=== PATIENT | female | born 1935 | race African-American/Black ===

== ENCOUNTER 2016-11-23 13:01 | Outpatient (CLI) | payer MEDICARE, MEDICAID ==
--- NOTE | 2016-11-23 15:45 | CT ---
CT CHEST WITH IV CONTRAST: History: Hemoptysis. Comparison: 06-03-16 FINDINGS: Lungs are slightly hyperinflated with scattered areas of parenchymal scarring and mild atelectasis. No focal parenchymal mass, pleural fluid, or pneumothorax are apparent. No enlarged lymph nodes are apparent within the mediastinum. Reactive appearing bilateral axillary lymph nodes are similar in ap pearance to the previous exam. Heterogeneous low density lesions within the spleen likely represent hemangiomas. There is calcification in the arterial structures. Airways are patent. IMPRESSION: 1. No abnormalities to explain hemoptysis are apparent. 2. Atherosclerosis. 3. COPD. POS: [facility]
== END 2016-11-23 13:02 | disposition home or self-care (01) ==
LOC: SCSCT 13:01
PROVIDERS: ATTEND Internal Medicine
DX: R04.2 Hemoptysis (principal); J44.9 Chronic obstructive pulmonary disease, unspecified; I70.90 Unspecified atherosclerosis
CPT/HCPCS: 71260

== ENCOUNTER 2018-04-29 12:51 | Observation (INO) | payer MEDICARE, MEDICAID ==
[2018-04-29] MEDS ORDERED: Lidocaine Viscous Sol 2% 15 ml UD Cup ONE (15:13)
[2018-04-29] MEDS ORDERED: Mag-Al 1200 mg/1200 mg/30 ML UDCUP ONE (15:13)
--- NOTE | 2018-04-29 16:47 | PDOC.FPRHP ---
Addendum entered and electronically signed by Sapna Rob MD 04/29/18 18:48 : PMH: HTN, HLD, h/o CO (1990), GERD, chronic back pain, dementia PSH: tubal ligation & B/L arm surgery (cyst/boil removal) FH: non-contributory Social: Former smoker but quit >10 years ago. No EtOH or drug use. Lives at home alone. Original Note: - History of Present Illness Chief Complaint: weakness and headache History of Present Illness: The patient is an 82YOF w/ a PMH significant for HTN, HLD, GERD, and dementia who was transferred from an outside ED after presenting there with a CC of weakness and associated headache and transient lightheadedness that, per the family, has been ongoing for the last week. The patient reported not feeling like herself for the last 2 weeks but per the family she has become progressively more weak over the past week. She has also had decreased PO intake and has reportedly been more confused than baseline at times. The patient denies any fever/chills, dysuria, frequency, or hematuria. She does endorse some nausea but denies any vomiting. Also, of note, the patient reportedly also endorsed some right-sided facial paresthesias that she states are relieved with drinking water. She denied any associated dysarthria or focal weakness. ED Course: 500mL of NS - Allergies/Adverse Reactions Allergies Allergy/AdvReac Type Severity Reaction Status Date / Time aspirin Allergy Verified 04/29/18 22:23 lidocaine Allergy Verified 04/29/18 22:23 - Home Medications Medication Instructions Recorded Confirmed Type Amlodipine Besylate [amLODIPine 10 mg PO HS 01/24/16 04/29/18 History Besylate] Lovastatin 40 mg PO QAM-WM 01/24/16 04/29/18 History Acetaminophen [Tylenol Regular 650 mg PO Q4H PRN tab 04/30/18 Rx Strength] Lisinopril [Zestril] 20 mg PO DAILY #30 tab 04/30/18 04/29/18 Rx Nitrofurantoin Monohyd/M-Cryst 100 mg PO BID #7 cap 04/30/18 Rx [Macrobid] predniSONE 10 mg PO QAM-WM tab 04/30/18 Rx - History PMHx: PSHx: FHx: Social: - Review of Systems General: reports: weight/appetite/sleep changes. denies: fever/chills, fatigue Eyes: denies: eye pain, vision changes ENT: denies: nasal congestion, rhinorrhea Respiratory: reports: cough. denies: shortness of breath Cardiovascular: denies: chest pain Gastrointestinal: reports: nausea, abdominal pain. denies: vomiting Genitourinary: reports: other (no hematuria or frequency). denies: dysuria Skin: denies: rashes, lesions Musculoskeletal: denies: pain, tenderness Neurological: reports: numbness, other (lightheadedness). denies: syncope, weakness Psychological: denies: anxiety, depression - Vital signs BP: 134/59 HR: 79 RR: 18 Tmax: 98F Pox: 100% on RA Wt: 60 kg - Physical Exam Constitutional: NAD, awake, alert and oriented, well developed HEENT: normocephalic and atraumatic, conjunctiva clear, grossly normal vision, grossly normal hearing, MMM (dry, cracked lips noted but oral mucosa moist on exam), oropharynx clear, good dention Neck: supple, FROM Heart: RRR, normal S1/S2, no murmurs/rubs/gallops, no edema Lungs: CTAB, no respiratory distress, good air movement, no rales/rhonchi, no wheezing, no retractions Abdomen: soft, bowel sounds present, other (suprapubic tenderness noted) Musculoskeletal: normal structure, ROM grossly normal Neurological: no focal deficit, CN II-XII intact, other (reported decreased sensation to light touch in V3 on the right) Skin: no rash/lesions, good turgor, no jaundice Heme/Lymphatic: no unusual bruising or bleeding, no purpura, no petechia Psychiatric: normal mood and affect, good judgment and insight, other (slightly impaired recent and remote memory) FMR H&P: Results - Labs Result Diagrams: 04/30/18 04:51 04/30/18 04:51 Lab results: Laboratory Tests 04/29/18 04/29/18 09:25 09:55 WBC 9.7 Hgb 11.2 L MCV 86.3 Urine Color Yellow Urine Clarity SL HAZY Urine Blood Trace H Ur Leukocyte Esterase Large H Urine WBC 4-6 H Urine Bacteria 1+ H - Radiology Interpretation CT scan - head Status: report reviewed by me (chronic small vessel ischemic changes & cerebral volume loss) Chest x-ray Status: report reviewed by me (no acute cardiopulmonary process) FMR H&P: A/P - Problem List (1) UTI (urinary tract infection) Current Visit: Yes Status: Acute Qualifiers: Urinary tract infection type: acute cystitis Hematuria presence: with hematuria Qualified Code(s): N30.01 - Acute cystitis with hematuria (2) HTN (hypertension) Current Visit: Yes Status: Chronic Code(s): I10 - ESSENTIAL (PRIMARY) HYPERTENSION (3) HLD (hyperlipidemia) Current Visit: Yes Status: Chronic Code(s): E78.5 - HYPERLIPIDEMIA, UNSPECIFIED (4) History of CO (myocardial infarction) Current Visit: Yes Status: Chronic Code(s): I25.2 - OLD MYOCARDIAL INFARCTION (5) GERD (gastroesophageal reflux disease) Current Visit: Yes Status: Chronic Code(s): K21.9 - GASTRO-ESOPHAGEAL REFLUX DISEASE WITHOUT ESOPHAGITIS (6) Dementia Current Visit: Yes Status: Chronic Code(s): F03.90 - UNSPECIFIED DEMENTIA WITHOUT BEHAVIORAL DISTURBANCE (7) Back pain Current Visit: Yes Status: Chronic Code(s): M54.9 - DORSALGIA, UNSPECIFIED - Plan Uncomplicated UTI: - Patient and family reports associated weakness and lightheadedness, worse upon standing for the last week. CXR & brain CT negative for any infectious or acute process that could explain these symptoms. Denied any urinary symptoms but most likely 2/2 acute cystitis found on UA. - Will get a repeat UA and urine culture here before continuing IV Abx. s/p cipro at outside ED. Will start on IV rocephin and likely transition to PO abx tomorrow. - Also s/p 500mL bolus of NS in the ED. Will encourage increased PO hydration for now as patient is HD stable and did not appear dry on exam or per labwork. - Will check for orthostasis as well. R-sided facial paresthesias: - Patient reported persistent decreased sensation in V3 on the right side of her face. CT brain on admission negative for any acute process. Will consider an MRI in the AM low suspicion for an acute CVA. Will monitor closely overnight on stroke unit. HTN: - Aware, willl resume home meds. but monitor closely for s/s of orthostatis & de -escalate PRN. HLD: - Aware, will resume home meds. h/o CO: - Aware, will resume home meds. GERD: - Aware, will start on QD protonix. chronic back pain: - Aware, will order PRN tylenol for pain. Dementia: - Reported by family. However, patient A&O x3 on exam. Knew name, place, and date. Dispo: Likely d/c home tomorrow on PO Abx for uncomplicated UTI. Abx: Rocephin (04/29) Diet: HH, low sodium GI PPX: protonix DVT PPx: Lovenox CODE STATUS: DNAR FMR H&P: Upper Level - Pertinent history 82 yo F w/hx of HTN, CAD, dementia, and HLD here with complaint of general malaise and lightheadedness for the past 2 weeks. In outside ER, CT brain was negative. Labs are significant for WBC and LE in UA and a mild normocytic anemia ROS General Denies fever, chills. Family complains of altered mentation CV denies CP or palpitations Resp denies cough, SOB Neuro denies weakness, numbness, slurred speech - Pertinent findings PE: General A&O x3, NAD HEENT NCAT, no facial asymmetry CV RRR, no murmur Resp CTA b/l Neuro Normal UE and LE strength and sensation. CN II-XII intact Abd: mild suprapubic tenderness - Plan Date/Time: 04/29/18 [id number] I, Adama Pal DO, have evaluated this patient and agree with findings/plan as outlined by supervisor international [place] resident. Pertinent changes/additions are listed here. 1. UTI - cultures have been drawn and pending. - Start Rocephin 2. AMS - likely associated with UTI, continue to monitor. 3. HTN - home meds 4. CAD - home meds Dispo: Patient stable, will give IV abx and monitor mental status. Likely LOS 1- 2 days Addendum - Attending - Attending Attestation Date/Time: 04/29/18 2548 I personally evaluated the patient and discussed the management with Dr. Rob. I agree with the History, Examination, Assessment and Plan documented above with any addition or exceptions noted below. The patient has had a week of progressive weakness and dizziness. She was transferred from [place]. Urine indicates infection. will begin IV rocephin. Send urine for culture.
[2018-04-29] MEDS ORDERED: Acetaminophen 325 MG TAB PO PRN (16:51)
[2018-04-29] MEDS ORDERED: Ondansetron ODT 4 MG TAB PO PRN (16:51)
[2018-04-29] MEDS ORDERED: Lactated Ringer's 1,000 ML IV SCH (17:00)
[2018-04-29] MEDS ORDERED: cefTRIAXone\\ROCEPHIN 1 GM in Sodium Chloride 0.9% 100 ML IVPB SCH (18:00)
[2018-04-29] MEDS ORDERED: Polyethylene Glycol OPTH DROP 15 ML BOT L EYE PRN (18:54)
[2018-04-29] MEDS ORDERED: Simvastatin 5 MG TAB PO SCH (21:00)
[2018-04-30 00:29] VITALS: BMI 22.1
[2018-04-30 04:56] LABS: Bilirubin Negative (Negative); Blood, Urine Negative (Negative); Clarity CLEAR (Clear); Glucose, Urine (Dipstick) Negative (Negative); Leukocyte Large (Negative); Nitrite Negative (Negative); Protein, Urine (Dipstick) Negative (Neg-Trace); Specific Gravity, Urine 1.009 (1.002-1.036); pH, Urine 7.5 (5.0-9.0)
[2018-04-30 04:58] LABS: Bacteria/HPF None Seen HPF (None Seen); Hyaline Casts/LPF 0-3 HYALINE CAST LPF (0-3 Hyaline); Pathc Cast-AUWi Flag 0.14 (0-2.49); RBC/HPF 0-3 HPF (0-3); WBC/HPF 21-50 HPF (0-3)
[2018-04-30 05:15] LABS: Manual Microscopic Reviewed? No Path Casts Seen; Renal Epithelial None Seen HPF (0-3); Transitional Epithelial 0-3 HPF (0-3); Urine Culture Reflex No No
[2018-04-30 05:54] LABS: #Eosinphils 0.2 thou/uL (0.0-0.7); #Lymphocytes 1.7 thou/uL (1.20-3.40); #Monocytes 0.3 thou/uL (0.11-0.59); #Neutrophils 4.4 thou/uL (1.40-6.50); %Basophils 0.5 % (0.0-1.0); %Eosinophils 3.3 % (0.0-10.0); %Lymphocytes 25.2 % (21.0-51.0); %Monocytes 4.9 % (0.0-10.0); %Neutrophils 66.1 % (42.0-75.0); Hemoglobin 10.5 g/dL (12.0-16.0); Mean Corpuscular HGB CONC 31.8 g/dL (32.0-36.0); Mean Corpuscular Hemoglobin 27.6 pg (27.0-31.0); Mean Corpuscular Volume 86.6 fL (78.0-98.0); Mean Platelet Volume 9.5 fL (7.4-10.4); Platelet Count 233 thou/uL (130-400); RBC Distribution Width 14.9 % (11.5-14.5); White Blood Cell (WBC) Count 6.7 thou/uL (4.8-10.8)
[2018-04-30 06:03] LABS: Anion Gap 11 mmol/L (10-20); BUN (Urea Nitrogen) 10 mg/dL (9.8-20.1); Calc. Creatinine Clearance 52 mL/min (70-130); Calcium 8.8 mg/dL (7.8-10.44); Carbon Dioxide 23 mmol/L (23-31); Chloride 112 mmol/L (98-107); Estimated GFR-MDRD 85; Glucose 83 mg/dL (83-110); Potassium 3.8 mmol/L (3.5-5.1); Sodium 142 mmol/L (136-145)
--- NOTE | 2018-04-30 06:27 | PDOC.FM ---
- Subjective Subjective: Patient reports feeling well this AM. Only complaint is right ear pain. Says the pain is an ache that she feels deep in her ear that causes her head to hurt. Denies any chest pain, SOB, lightheadedness or dizziness upon standing, or fever/chills. Also denies any vision changes. - Objective MAR Reviewed: Yes Vital Signs & Weight: Vital Signs (12 hours) Temp Pulse Resp BP BP BP Pulse Ox 04/30/18 04:00 98 F 85 16 129/61 124/68 98/64 99 04/30/18 00:00 97.7 F 69 16 152/72 H 98 04/29/18 22:39 74 154/66 H Weight Weight 58.695 kg Result Diagrams: 04/30/18 04:51 04/30/18 04:51 Phys Exam - Physical Examination Constitutional: NAD HEENT: moist MMs, sclera anicteric Neck: supple, full ROM Respiratory: no wheezing, no rales, no rhonchi, clear to auscultation bilateral Cardiovascular: no significant murmur irregularly irregular rhythm w/ regular rate Gastrointestinal: positive bowel sounds Musculoskeletal: no edema, pulses present Neurological: non-focal, moves all 4 limbs Psychiatric: normal affect, A&O x 3 Skin: no rash, normal turgor Dx/Plan (1) UTI (urinary tract infection) Status: Acute Qualifiers: Urinary tract infection type: acute cystitis Hematuria presence: with hematuria Qualified Code(s): N30.01 - Acute cystitis with hematuria (2) HTN (hypertension) Code(s): I10 - ESSENTIAL (PRIMARY) HYPERTENSION Status: Chronic (3) HLD (hyperlipidemia) Code(s): E78.5 - HYPERLIPIDEMIA, UNSPECIFIED Status: Chronic (4) History of AR (myocardial infarction) Code(s): I25.2 - OLD MYOCARDIAL INFARCTION Status: Chronic (5) GERD (gastroesophageal reflux disease) Code(s): K21.9 - GASTRO-ESOPHAGEAL REFLUX DISEASE WITHOUT ESOPHAGITIS Status: Chronic (6) Dementia Code(s): F03.90 - UNSPECIFIED DEMENTIA WITHOUT BEHAVIORAL DISTURBANCE Status: Chronic (7) Back pain Code(s): M54.9 - DORSALGIA, UNSPECIFIED Status: Chronic - Plan Plan: Uncomplicated UTI: - Patient and family reports associated weakness and lightheadedness, worse upon standing for the last week. CXR & brain CT negative for any infectious or acute process that could explain these symptoms. Denied any urinary symptoms other than suprapubic tenderness but most likely 2/2 acute cystitis found on UA. - Repeat UA on floor + for LE & WBCs only s/p 1 dose of cipro. Urine culture pending. Will likely transition to PO abx today. - Will encourage PO hydration for now as patient remains afebrile & HD stable. - Will check for + drop in BP w/ standing but no HR recorded to correlate w/ BPs. Will ask for repeat orthostats w/ HR as well. R-sided facial paresthesias: - Patient reported persistent decreased sensation in V3 on the right side of her face on admission but denied any this AM. CT brain on admission negative for any acute process. Will consider an MRI in the AM low suspicion for an acute CVA. Will touch base w/ PCP as well for further recs regarding this. Suspected new onset atrial fibrillation: - Irregularly irregular rhythm on PE and on monitor this AM. Regular rate. Will obtain a STAT EKG and check electrolytes this AM. TSH WNLs on admission. - Will continue to monitor. Could also explain weakness and fatigue in conjunction w/ UTI. UTI could also have exacerbated a fib. HTN: - Aware, willl resume home meds but monitor closely for s/s of orthostasis & de- escalate if needed. HLD: - Aware, will resume home meds. h/o AR: - Aware, will resume home meds. GERD: - Aware, will start on QD protonix. chronic back pain: - Aware, will order PRN tylenol for pain. Dementia: - Reported by family. However, patient A&O x3 on exam. Knew name, place, and date on exam on admission & this AM. Dispo: Likely d/c home tomorrow on PO Abx for uncomplicated UTI. Abx: Rocephin (04/29) Diet: HH, low sodium GI PPX: protonix DVT PPx: Lovenox CODE STATUS: DNAR Addendum - Attending - Attending Attestation Date/Time: 04/30/18 1312 I personally evaluated the patient and discussed the management with Dr. Rob. I agree with the History, Examination, Assessment and Plan documented above with any addition or exceptions noted below. The patient is feeling much better and wants to go home. We will check an EKG as she appears to have pauses or an irregular heartbeat this morning. If everything looks ok, she will go home.
[2018-04-30] MEDS ORDERED: predniSONE 20 MG TAB PO SCH (08:00)
[2018-04-30] MEDS ORDERED: Lisinopril 20 MG TAB PO SCH (09:00)
[2018-04-30] MEDS ORDERED: Enoxaparin Sodium 40 MG/0.4 ML SYRINGE SC SCH (09:00)
[2018-04-30] MEDS ORDERED: Nitrofurantoin Monohyd/M-Cryst 100 MG CAP PO SCH ×3 (09:43→21:00)
[2018-04-30 11:39] VITALS: BP 150/67; TEMP 98.6
--- NOTE | 2018-04-30 20:48 | DIS ---
DATE OF ADMISSION: 04/29/2018 DATE OF DISCHARGE: 04/30/2018 RESIDENT: Sapna Rob MD ADMITTING ATTENDING: Chana Briceno MD DISCHARGE ATTENDING: Chana Briceno MD CONSULT: None. PROCEDURES: 1. Brain CT on 04/29/2018 significant for chronic small-vessel ischemic changes and cerebral volume loss, but no acute intracranial abnormalities. 2. Chest x-ray on 04/29/2018, which showed no acute cardiopulmonary process. PRIMARY DIAGNOSES: 1. Uncomplicated urinary tract infection. 2. Mild dehydration. 3. Reported right-sided facial paresthesias of unknown etiology. SECONDARY DIAGNOSES: 1. Hypertension. 2. Hyperlipidemia. 3. History of myocardial infarction. 4. Gastroesophageal reflux disease. 5. Chronic back pain. 6. Dementia. DISCHARGE MEDICATIONS: 1. Lisinopril 20 mg p.o. daily. 2. Lovastatin 40 mg p.o. every morning. 3. Amlodipine 10 mg p.o. at bedtime. 4. Acetaminophen 650 mg p.o. every 4 hours p.r.n. pain. 5. Prednisone 10 mg p.o. q.a.m. with meals. 6. Macrobid 100 mg p.o. b.i.d. DISCONTINUED MEDICATION: Lisinopril 40 mg p.o. daily. HOSPITAL COURSE: The patient is an 82-year-old female with a past medical history significant for hypertension, hyperlipidemia, GERD and a history of myocardial infarction, who presented to the [facility] Emergency Department after being transferred from an outside ED for further evaluation of suspected CVA versus TIA. The patient initially presented to the outside ED with chief complaint of weakness with associated headache and transient lightheadedness that, per the family, had been ongoing for the last week. The family also reported decreased p.o. intake , but denied any reported fever or chills. The patient endorsed some nausea, but denied any urinary symptoms such as dysuria, frequency or hematuria. In addition, the patient reported some transient right-sided facial paresthesias that she stated were relieved upon drinking water but denied any focal weakness or dysarthria. However, given her risk factors and reported paresthesias, a head CT was obtained to rule out any acute intracranial abnormality that could explain the patient's paresthesias which showed only chronic ischemic changes and cerebral volume loss consistent with aging. In addition, a chest x-ray was obtained to rule out any acute infectious process which showed no acute cardiopulmonary abnormalities. Lab work including a CBC, CMP, troponin level, TSH, and UA were all obtained at the outside ED & were noted to be within normal limits with the exception of mild normocytic anemia with hemoglobin of 11.2 and a UTI as her urine was positive for trace blood, large leukocyte esterase, 4-6 white blood cells, and 1+ bacteria. The patient was therefore given a dose of IV Cipro and transferred to [facility] Emergency Department to rule out a possible CVA. On evaluation in the [facility] Emergency Department, it was determined that the patient likely did not suffer from an acute CVA as paresthesias had resolved and her remaining symptoms sounded more like orthostasis secondary to volume depletion and acute cystitis. She was therefore given a 500 mL bolus of normal saline and admitted for close observation overnight. The following morning, the patient stated she felt well and appeared much more alert & was answering questions appropriately. She received one dose of IV Rocephin overnight and was transitioned to p.o. Macrobid and received one dose prior to being discharged from the hospital. Regarding the patient's lab abnormalities, her normocytic anemia remained stable over the course of her hospitalization with a hemoglobin of 10.5 on the date of discharge. A repeat UA on admission to [facility] noted only some large leukocyte esterase, 21-50 white blood cells, & 46 squamous cells but a urine culture was also sent off from this sample to ensure that her infection was susceptible to her discharge antibiotic regimen. DISPOSITION: Stable. DISCHARGE INSTRUCTIONS: 1. Location: Home. 2. Diet: Heart healthy diet. 3. Activity: As tolerated. No restrictions. 4. Followup: The patient was instructed to follow up with her primary care provider, Dr. Marv Duffy, within 3 days of discharge. Job ID: [id number] [facility]
== END 2018-04-30 12:38 | disposition home or self-care (01) ==
LOC: ERS 12:51 → 2SE 18:13
PROVIDERS: ADMIT Family Medicine; ATTEND Family Medicine
DX: N39.0 Urinary tract infection, site not specified (principal); E86.0 Dehydration; I10 Essential (primary) hypertension; E78.5 Hyperlipidemia, unspecified; I25.2 Old myocardial infarction; K21.9 Gastro-esophageal reflux disease without esophagitis; F03.90 Unspecified dementia, unspecified severity, without behavioral disturbance, psychotic disturbance, mood disturbance, and anxiety; Z98.51 Tubal ligation status; Z87.891 Personal history of nicotine dependence; Z88.6 Allergy status to analgesic agent; Z88.4 Allergy status to anesthetic agent; Z79.52 Long term (current) use of systemic steroids; Z79.2 Long term (current) use of antibiotics; Z79.899 Other long term (current) drug therapy; Z98.890 Other specified postprocedural states
CPT/HCPCS: 80048; 81001; 83735; 85025; 87086; 93005; 96372; 99285; G0378 ×2; 36415; 93010; 96360; J0696; J1650; J7050

== ENCOUNTER 2018-07-10 14:47 | Inpatient (IN) | payer MEDICARE, MEDICAID ==
[2018-07-10 15:20] LABS: #Lymphocytes 0.9 thou/uL (1.20-3.40); #Monocytes 0.5 thou/uL (0.11-0.59); %Basophils 0.1 % (0.0-1.0); %Eosinophils 0.1 % (0.0-10.0); %Lymphocytes 5.5 % (21.0-51.0); %Monocytes 2.8 % (0.0-10.0); %Neutrophils 91.6 % (42.0-75.0); Hemoglobin 10.1 g/dL (12.0-16.0); Mean Corpuscular HGB CONC 31.7 g/dL (32.0-36.0); Mean Corpuscular Hemoglobin 27.3 pg (27.0-31.0); Platelet Count 286 thou/uL (130-400); RBC Distribution Width 17.5 % (11.5-14.5); White Blood Cell (WBC) Count 16.4 thou/uL (4.8-10.8)
--- NOTE | 2018-07-10 15:21 | RAD ---
XR Chest 1 View Portable HISTORY: Chest pain COMPARISON: 04/29/2018 FINDINGS: The heart size is normal. The lungs are well expanded without focal areas of consolidation, pneumothorax or pleural effusions. The aorta is tortuous. There is continued elevation of the left hemidiaphragm. IMPRESSION: No radiographic evidence of acute cardiopulmonary process.
[2018-07-10 15:51] LABS: ALT (SGPT) 7 U/L (8-55); AST (SGOT) 12 U/L (5-34); Alkaline Phosphatase 42 U/L (40-150); Anion Gap 11 mmol/L (10-20); BUN (Urea Nitrogen) 22 mg/dL (9.8-20.1); Bilirubin, Total 1.2 mg/dL (0.2-1.2); Calc. Creatinine Clearance 0 mL/min (70-130); Carbon Dioxide 26 mmol/L (23-31); Chloride 98 mmol/L (98-107); Estimated GFR-MDRD 56; Globulin 2.1 g/dL (2.4-3.5); Glucose 127 mg/dL (83-110); Potassium 4.2 mmol/L (3.5-5.1); Protein, Total 6.1 g/dL (6.0-8.3); Sodium 131 mmol/L (136-145)
[2018-07-10 16:42] LABS: Bilirubin Negative (Negative); Blood, Urine Negative (Negative); Clarity CLEAR (Clear); Glucose, Urine (Dipstick) Negative (Negative); Leukocyte Moderate (Negative); Nitrite Negative (Negative); Protein, Urine (Dipstick) Negative (Neg-Trace); Specific Gravity, Urine 1.006 (1.002-1.036); Urobilinogen 0.2 mg/dL (0.2-1.0)
[2018-07-10 16:44] LABS: Pathc Cast-AUWi Flag 1.08 (0-2.49)
[2018-07-10 16:52] LABS: Bacteria/HPF Rare-Few HPF (None Seen); RBC/HPF None Seen HPF (0-3); Squamous Epithelial 0-3 HPF (0-3)
[2018-07-10 16:53] LABS: Hyaline Casts/LPF NONE SEEN LPF (0-3 Hyaline)
[2018-07-10 18:41] LABS: Troponin I Less than 0.010 ng/mL (< 0.028)
--- NOTE | 2018-07-10 18:41 | PDOC.FPRHP ---
- History of Present Illness Chief Complaint: dizziness History of Present Illness: 83 yo female presents for evaluation of back pain and constipation. Family and patient are historians. Recently seen by PCP. Noted to have sciatica. Prescribed pain medication and increased steroid dose. On the way home for PCP while getting out of the car she "passed out." EMS was called. Syncope episode occurred at home. Patient reported got out of the car. Closed the door and then dropped to the ground. Patient conscious at this time. Family was able to get her to stand and again became weak and dropped to the ground. Family notes that over the last few days reported burning chest pain. Recently family notes decreased appetite. Patient with previous history of pre-syncopal spells related to dehydration. Patient feels decreased appetite related to pain and constipation. Has been treated with bowel regiments but without much help. Family members state back pain has been serve. She has been seen at PCP and ERs for treatment. Last ER was on Tuesday. Patient presents progressive and severe back pain that starts in her lower back and radiates down her leg. Pain is sharp and stabbing. Occasional burning. ED Course: CBC, CMP, trop, UA, B/UCx 1L NS, tylenol, gabapentin - Allergies/Adverse Reactions Allergies Allergy/AdvReac Type Severity Reaction Status Date / Time aspirin Allergy Verified 07/11/18 01:42 lidocaine Allergy Verified 07/11/18 01:42 - Home Medications Medication Instructions Recorded Confirmed Type Amlodipine Besylate [amLODIPine 10 mg PO HS 01/24/16 04/29/18 History Besylate] Lovastatin 40 mg PO QAM-WM 01/24/16 04/29/18 History Acetaminophen [Tylenol Regular 650 mg PO Q4H PRN tab 04/30/18 Rx Strength] Lisinopril [Zestril] 20 mg PO DAILY #30 tab 04/30/18 04/29/18 Rx Nitrofurantoin Monohyd/M-Cryst 100 mg PO BID #7 cap 04/30/18 Rx [Macrobid] predniSONE 10 mg PO QAM-WM tab 04/30/18 Rx - History pmhx: HTN, RA, HLD, Heart arrhythmia sxhx: BTL, I&D sohx: tobacco use 20 to 30 years ago, no alcohol or drug use. famhx: Colon cancer (sister) otherwise HTN, Heart disease, DM allergies: Lidocaine - itching, Aspirin - GI upset Specialist: Work Environment Safety Inspector, Voice Network Engineer (has not seen in a few years) - Review of Systems General: reports: weight/appetite/sleep changes. denies: fever/chills Eyes: denies: vision changes ENT: denies: nasal congestion, rhinorrhea Respiratory: denies: cough, congestion Cardiovascular: reports: chest pain. denies: palpitation Gastrointestinal: denies: nausea, vomiting, diarrhea Genitourinary: denies: incontinence, dysuria Skin: denies: rashes, lesions Musculoskeletal: reports: pain, tenderness. denies: swelling Neurological: reports: syncope, weakness (non focal). denies: numbness, seizure - Vital signs BP: 150/84 HR: 109 RR: 15 Tmax: 98.8 Pox: 98% on RA Wt: 58kg - Physical Exam Constitutional: NAD HEENT: normocephalic and atraumatic, grossly normal vision, grossly normal hearing, MMM Neck: trachea midline Chest: no-tender to palpation, no lesions Heart: normal S1/S2, no murmurs/rubs/gallops, other (irregularly irregular rhythm) Lungs: CTAB, no respiratory distress, good air movement Abdomen: soft, non-tender, bowel sounds present Musculoskeletal: normal structure, normal tone Neurological: no focal deficit, CN II-XII intact Skin: no rash/lesions, good turgor, capillary refill <2 seconds Heme/Lymphatic: no unusual bruising or bleeding Psychiatric: normal mood and affect FMR H&P: Results - Labs Result Diagrams: 07/10/18 15:12 07/10/18 15:12 Lab results: WBC 16.4 thou/uL (4.8-10.8) H 07/10/18 15:12 Hgb 10.1 g/dL (12.0-16.0) L 07/10/18 15:12 Hct 31.8 % (36.0-47.0) L 07/10/18 15:12 MCV 86.0 fL (78.0-98.0) 07/10/18 15:12 Plt Count 286 thou/uL (130-400) 07/10/18 15:12 Neutrophils % 91.6 % (42.0-75.0) H 07/10/18 15:12 Sodium 131 mmol/L (136-145) L 07/10/18 15:12 Potassium 4.2 mmol/L (3.5-5.1) 07/10/18 15:12 Chloride 98 mmol/L (98-107) 07/10/18 15:12 Carbon Dioxide 26 mmol/L (23-31) 07/10/18 15:12 BUN 22 mg/dL (9.8-20.1) H 07/10/18 15:12 Creatinine 1.12 mg/dL (0.6-1.1) H 07/10/18 15:12 Glucose 127 mg/dL (83-110) H 07/10/18 15:12 Lactic Acid 1.2 mmol/L (0.5-2.2) 07/10/18 15:36 Calcium 9.0 mg/dL (7.8-10.44) 07/10/18 15:12 Total Bilirubin 1.2 mg/dL (0.2-1.2) 07/10/18 15:12 AST 12 U/L (5-34) 07/10/18 15:12 ALT 7 U/L (8-55) L 07/10/18 15:12 Alkaline Phosphatase 42 U/L (40-150) 07/10/18 15:12 Serum Total Protein 6.1 g/dL (6.0-8.3) 07/10/18 15:12 Albumin 4.0 g/dL (3.4-4.8) 07/10/18 15:12 Urine Ketones Trace mg/dL (Negative) H 07/10/18 16:25 Urine Blood Negative (Negative) 07/10/18 16:25 Urine Nitrite Negative (Negative) 07/10/18 16:25 Ur Leukocyte Esterase Moderate (Negative) H 07/10/18 16:25 Urine RBC None Seen HPF (0-3) 07/10/18 16:25 Urine WBC 4-6 HPF (0-3) H 07/10/18 16:25 Ur Squamous Epith Cells 0-3 HPF (0-3) 07/10/18 16:25 Urine Bacteria Rare-Few HPF (None Seen) 07/10/18 16:25 FMR H&P: A/P - Problem List (1) Afib Current Visit: Yes Status: Acute Code(s): I48.91 - UNSPECIFIED ATRIAL FIBRILLATION (2) Back pain Current Visit: No Status: Chronic Code(s): M54.9 - DORSALGIA, UNSPECIFIED (3) Dementia Current Visit: No Status: Chronic Code(s): F03.90 - UNSPECIFIED DEMENTIA WITHOUT BEHAVIORAL DISTURBANCE (4) GERD (gastroesophageal reflux disease) Current Visit: No Status: Chronic Code(s): K21.9 - GASTRO-ESOPHAGEAL REFLUX DISEASE WITHOUT ESOPHAGITIS (5) HLD (hyperlipidemia) Current Visit: No Status: Chronic Code(s): E78.5 - HYPERLIPIDEMIA, UNSPECIFIED (6) HTN (hypertension) Current Visit: No Status: Chronic Code(s): I10 - ESSENTIAL (PRIMARY) HYPERTENSION - Plan pre-syncope w/ collapse - no associated symptoms, similar to episodes in the past associated with UTI - no concern for infection, seizure or CVA - consider cardiac cause, Echo, TSH, mag, Phos pending Hyponatremic hypovolemia - Na 132 POA, decreased PO intake - 1 L in ED, consider further fluid after re-eval Afib - rate jumping above 110 at times, otherwise asymptomatic - consider afib with RVR episodes as possible cause for above Back pain - chronic issue, allergic to lidocaine and asa/ibuprofen - hx of L2 fx, MRI pending - tylenol, gabapentin, tramadol for pain - avoid narcotics 2/2 constipation Dementia - aware, baseline GERD - aware, continue home meds HTN - hold home meds HLD - continue home meds code: full ppx: lovenox dispo: admit to tele obs, further evaluation and IVF rescus FMR H&P: Upper Level - Pertinent history 83 yo female here for syncopal episode. Patients family are historians. On the way home from her PCP today, patient slouched down onto the ground when getting into her car. No LOC. She has also been having a history of back pain and constipation. Also having chest pain which she describes as burning. Family also reports she was started on a new medication for chest pain, not sure what it was, and also given a short term increased dose of one of her current medication. - Pertinent findings 151/82 HR: 109 95% on RA RR: 22 WBC: 16.4 H/H: 10.1/31.8 Na:131 Cr: 1.12 UA: moderate LE and WBC 4-6 GEN: NAD CARD: irreg irreg, tachy PULM: CTAB EXT: no cyanosis or edema CXR: no acute process - Plan Date/Time: 07/10/18 1840 I, Ovi Baxter DO, have evaluated this patient and agree with findings/plan as outlined by tech intern resident. Pertinent changes/additions are listed here. #pre-syncopal episode -concern for cardiac process -check Mg, phos, TSH ECHO -monitor on tele #Atrial fibrillation -monitor on tele -if it goes into RVR, consider fluid bolus, diltiazem drip with care for the patients hypotension she has been experiencing #UTI -rocephin #dehydration #hyponatremia #chronic back pain -continue home meds #normocytic anemia #dementia #GERD #HTN Addendum - Attending - Attending Attestation Date/Time: 07/10/182025 I personally evaluated the patient and discussed the management with Dr. Jaimes and Dr. Baxter I agree with the History, Examination, Assessment and Plan documented above with any addition or exceptions noted below. 83 yo female with multiple medical conditions presents for evaluation of pre- syncopal event, back pain, weakness, and constipation. Patient noted to have weakness/pre-syncopal event after returning from the doctors office today. Family reports patient has been dealing with progressive back pain over the past several weeks. Patient reports pain has affected everything for her. Family states she no longer has an appetite. Dropped to the ground twice today due to weakness upon standing. Denies LOC. Has been unable to have normal bowel movements for sometime as well. Family has been treating with stool softners and osmotic laxatives. VS, imaging, labs reviewed. Agree with PE as documented. 1. Pre-syncope/weakness: Suspected to be related to hypovolemia/orthostasis with poor PO intake. Also concerning for possible cardiac cause due to current A fib on monitor. Check ECHO. Trend trops. Continue IVFs as tolerated. Place on tele. Check orthostatics. Rule out infections. Evaluate carotids via sono. 2. UTI: Asymptomatic related to common symptoms. UA positive for WBCs. Elevated white count on CBC. Culture pending. Start antibx. Has previously presented the same for UTIs. No fevers. Could consider sepsis due to HR, white count and UA however HR more likely related to a fib than vicky sepsis. 3. Dehydration/hypovolemia: Continue IVFs as tolerated. Monitor UOP. Trend labs. Lactate level reassuring. Encourage PO. Monitor vitals. 4. Normocytic anemia: Unsure if previously worked up. Will likely worsen once hypovolemia resolved. Follow up with PCP on work up. Transfuse as needed. 5. RANJIT on CKD: Likely Prerenal. Trend labs. Adjust medications base on GFR. Monitor UOP. 6. Hyponatremia: Replace. Monitor other electrolytes. 7. A fib: Not consistently with RVR. Trend trops. ECHO. Cards as needed. Not on anticoagulation. Tele monitoring. Treat dehydration/hypovolemia. Discuss risk with family. 8. Anorexia vs Cachexia: Need to further evaluate nutrition status. Add MVI. 9. Chronic back pain with sciatica: Discuss with PCP workup. Consider further imaging as needed. Treat with Tylenol and gabapentin. Adjust home meds as needed. Marissa
[2018-07-10] MEDS ORDERED: Ondansetron PF 4 MG/2 ML Vial IVP PRN (19:14)
[2018-07-10] MEDS ORDERED: Ondansetron ODT 4 MG TAB PO PRN (19:14)
[2018-07-10] MEDS ORDERED: Gabapentin 100 MG CAP PO SCH (19:30)
[2018-07-10] MEDS ORDERED: Acetaminophen 325 MG TAB ONE (19:54)
[2018-07-10 21:09] LABS: Magnesium 2.6 mg/dL (1.6-2.6); Phosphorus 2.5 mg/dL (2.3-4.7)
[2018-07-10] MEDS ORDERED: Sodium Chloride 0.9% 1,000 ML IV SCH (23:45)
[2018-07-11] MEDS: Ibuprofen 600 MG TAB PO SCH ×3 (01:51→12:13)
[2018-07-11] MEDS: Gabapentin 100 MG CAP PO SCH ×4 (01:51→21:24)
[2018-07-11] MEDS: Sodium Chloride 0.9% 500 ML IV SCH ×2 (01:52→02:18)
[2018-07-11] MEDS: cefTRIAXone\\ROCEPHIN 1 GM in Sodium Chloride 0.9% 100 ML IVPB SCH (01:53)
[2018-07-11] MEDS ORDERED: Diltiazem 125 MG in Sodium Chloride 0.9% 100 ML IVPB SCH ×2 (03:00→09:30)
[2018-07-11 05:43] LABS: ALT (SGPT) 7 U/L (8-55); AST (SGOT) 11 U/L (5-34); Albumin 3.5 g/dL (3.4-4.8); Alkaline Phosphatase 34 U/L (40-150); Anion Gap 12 mmol/L (10-20); BUN (Urea Nitrogen) 13 mg/dL (9.8-20.1); Bilirubin, Total 0.4 mg/dL (0.2-1.2); Calc. Creatinine Clearance 51 mL/min (70-130); Calcium 8.1 mg/dL (7.8-10.44); Carbon Dioxide 20 mmol/L (23-31); Chloride 110 mmol/L (98-107); Estimated GFR-MDRD 88; Globulin 2.3 g/dL (2.4-3.5); Glucose 104 mg/dL (83-110); Potassium 3.5 mmol/L (3.5-5.1); Protein, Total 5.8 g/dL (6.0-8.3); Sodium 138 mmol/L (136-145)
[2018-07-11 06:46] LABS: #Eosinphils 0.1 thou/uL (0.0-0.7); #Lymphocytes 1.5 thou/uL (1.20-3.40); #Monocytes 0.3 thou/uL (0.11-0.59); #Neutrophils 10.2 thou/uL (1.40-6.50); %Basophils 0.2 % (0.0-1.0); %Eosinophils 0.6 % (0.0-10.0); %Lymphocytes 12.3 % (21.0-51.0); %Monocytes 2.7 % (0.0-10.0); %Neutrophils 84.2 % (42.0-75.0); Mean Corpuscular HGB CONC 31.8 g/dL (32.0-36.0); Mean Corpuscular Hemoglobin 27.5 pg (27.0-31.0); Mean Corpuscular Volume 86.5 fL (78.0-98.0); Mean Platelet Volume 9.5 fL (7.4-10.4); Platelet Count 285 thou/uL (130-400); RBC Distribution Width 17.7 % (11.5-14.5); Red Blood Cell (RBC) Count 3.65 mill/uL (4.20-5.40); White Blood Cell (WBC) Count 12.1 thou/uL (4.8-10.8)
--- NOTE | 2018-07-11 08:03 | PDOC.FM ---
- Subjective Subjective: 83 yo f with pmhx of HTN and ?arrhythmia, not on rate control or anticoagulation at home, who initially presented after a near syncopal episode after leaving her PCP's office yesterday, who was admitted for presyncope and hypovolemic hyponatremia. O/N: She was found to be in Afib with RVR, hypotensive, and septic with a possible retrocardiac pneumonia, and complaining of chest pain. Chest pain was substernal with some radiation to her left arm. She was tachycardic (Afib with rvr) in the 150s. Pt did receive two doses of metoprolol for her rate in the 150s and and is currently on a dilt drip. She was bolused another 1L NS overnight d/t hypotension, and this morning given an addition 500 ml NS after pressures again noted to be 80/40s, with CVP of 2-3. She was given morphine 2mg for her chest pain, a stat EKG ordered, and cardiac enzymes as well. - Objective MAR Reviewed: Yes Vital Signs & Weight: Vital Signs (12 hours) Temp Pulse Resp BP Pulse Ox 07/11/18 07:13 96.8 F L 07/11/18 04:00 97.6 F 07/11/18 02:52 100 07/11/18 01:46 97.8 F 153 H 19 96/51 L 100 Weight Weight 56.699 kg Most Recent Monitor Data Heart Rate from ECG 133 NIBP 97/82 NIBP BP-Mean 87 Respiration from ECG 15 SpO2 98 I&O: 07/10/18 07/11/18 07/12/18 06:59 06:59 06:59 Intake Total 1020 Output Total 1300 Balance -280 Result Diagrams: 07/12/18 02:45 07/12/18 02:45 Phys Exam - Physical Examination Constitutional: NAD Respiratory: no wheezing crackles bilateral bases irregularly irregular Gastrointestinal: soft, non-tender Musculoskeletal: no edema, pulses present Neurological: non-focal Psychiatric: A&O x 3 Skin: no rash Dx/Plan (1) Atrial fibrillation with RVR Code(s): I48.91 - UNSPECIFIED ATRIAL FIBRILLATION Status: Resolved (2) Sepsis Code(s): A41.9 - SEPSIS, UNSPECIFIED ORGANISM Status: Resolved (3) Chest pain Code(s): R07.9 - CHEST PAIN, UNSPECIFIED Status: Resolved (4) Adrenal insufficiency Code(s): E27.40 - UNSPECIFIED ADRENOCORTICAL INSUFFICIENCY Status: Acute (5) Hyponatremia Code(s): E87.1 - HYPO-OSMOLALITY AND HYPONATREMIA Status: Resolved (6) Hypotension Status: Resolved (7) Back pain Code(s): M54.9 - DORSALGIA, UNSPECIFIED Status: Chronic (8) GERD (gastroesophageal reflux disease) Code(s): K21.9 - GASTRO-ESOPHAGEAL REFLUX DISEASE WITHOUT ESOPHAGITIS Status: Chronic (9) HLD (hyperlipidemia) Code(s): E78.5 - HYPERLIPIDEMIA, UNSPECIFIED Status: Chronic (10) HTN (hypertension) Code(s): I10 - ESSENTIAL (PRIMARY) HYPERTENSION Status: Chronic - Plan Plan: 83 yo f with pmhx of an ?arrhythmia, HTN, sciatica presented with a presyncopal episode admitted for presyncope and hypovolemic hyponatremia, who was found o/n to be in Afib wit RVR and hypotensive, with chest pain this morning. #Afib with RVR -rate 120s-150s, low normal BP -pt currently on a dilt drip, consider weaning off if pressures downtrend, low normal currently -cards consult for recs -pt given metoprolol 5mg IV and 5mg PO #Sepsis vs septic shock, unknown source, possible retrocardiac CAP -rocephin started in the ER, will add doxycycline for tx of a possible retrocardiac CAP -prcal .18 -Ucx pending, asymptomatic currently -NS @ 100ml/hr, will dc and provide another fluid bolus based on hypercontractility of LV per instrument/control technician, CVP 2-3, and persistently hypotensive this morning; central line placed, if continues to be hypotensive and rise in CVP, will start pressor support #Chestpain. this morning, new -troponin elevated this morning, EKG ordered -suspect demand ischemia, will trend -will start ther lovenox if indicated #Possible AI -started hydrocortisone 50mg IV q6h for 48 hours #Hyponatremai, hypovolemic- -sodium normalized this am #presyncope- -suspect cardiac relating to afib vs hypovolemic -pt bolused 2L NS o/n, central line placed, will continue NS bolus of 500ml IV prn based on volume status -ordered mag, phosph, tsh, echo #Hypophosphatemia- -replaced DVT ppx: lovenox GI ppx: protonix Oziel Becker MD, PGY-2 Addendum - Attending - Attending Attestation Date/Time: 07/12/18 1112 I personally evaluated the patient and discussed the management with Dr. Stephenson. I agree with the History, Examination, Assessment and Plan documented above with any addition or exceptions noted below.
--- NOTE | 2018-07-11 08:32 | RAD ---
PORTABLE CHEST ONE VIEW: 07/11/2018 4:20 a.m. HISTORY: Central line placement. COMPARISON: Exam from the previous day. FINDINGS: There has been interval placement of a right internal jugular central venous line with the tip in the projection of the cavoatrial junction. No pneumothorax is seen. There is continued elevation of th e left hemidiaphragm with adjacent mild atelectatic changes. POS: [facility]
[2018-07-11] MEDS ORDERED: Metoprolol Tartrate 5 MG/5 ML VIAL ONE (08:34)
[2018-07-11] MEDS ORDERED: Morphine 4 MG/ML VIAL ONE (08:37)
[2018-07-11] MEDS ORDERED: Potassium Chloride 20 MEQ TAB PO SCH (08:45)
--- NOTE | 2018-07-11 08:46 | PDOC.EVN ---
Event Note - Event Note Event Note: INDICATION: _ PROCEDURE MATRIX PLATER: _ ATTENDING PHYSICIAN: _ In Attendance (Y)_ CONSENT: Consent was obtained from Family prior to the procedure. Indications, risks, and benefits were explained at length. INDICATION: normotensive on initial exam in ED, became hypotensive, EKG revealed afib intermittent RVR. pressures rapidly transition from normotensive to hypotensive range despite adequate fluid resuscitation. persistent hypotension and need for rate control lead to placement of CVC for potential pressor support PROCEDURE SUMMARY: A time out was performed. My hands were washed immediately prior to the procedure. I wore a surgical cap, mask with protective eyewear, full gown and sterile gloves throughout the procedure. The patient was placed in Trendelenburg position. RIGHT chest region was prepped using chlorhexidine scrub and draped in sterile fashion using a full drape and sterile probe cover employed. The medial and lateral heads of the sternocleidomastoid muscle were identified as was the carotid pulse. The Internal Jugular vein was identified using the ultrasound. Using real-time out of plane guidance, the introducer needle was inserted into the Internal Jugular vein under direct ultrasound visualization. Venous blood was withdrawn. The syringe was removed and a guidewire was advanced into the introducer needle. The guidewire was visualized in the Internal Jugular Vein by ultrasound. A small incision was made at the skin surface with a scalpel and the introducer needle was exchanged for a dilator over the guidewire. After appropriate dilation was obtained, the dilator was exchanged over the wire for a triple lumen central venous catheter. The wire was removed and the catheter was sutured in place at 15 cm. A sterile sorbaview shield was placed over the catheter at the insertion site. The patient tolerated the procedure without any hemodynamic compromise. At time of procedure completion, all ports aspirated and flushed properly. Post-procedure chest x-ray revealed proper placement. Estimated blood loss is 25ml. Cuco Jaimes DO Resident was supervised by ER physician with myself nearby. Agree with documentation above. Marissa
[2018-07-11 09:12] LABS: Magnesium 2.5 mg/dL (1.6-2.6); Phosphorus 2.1 mg/dL (2.3-4.7)
[2018-07-11] MEDS ORDERED: Morphine 2 MG/ML SYRINGE SLOW IVP SCH (09:15)
[2018-07-11] MEDS ORDERED: Metoprolol Tartrate 5 MG/5 ML VIAL IVP SCH (09:30)
[2018-07-11] MEDS ORDERED: Sodium Chloride 0.9% 500 ML IV SCH (09:30)
[2018-07-11 09:42] LABS: Troponin I 0.273 ng/mL (< 0.028)
[2018-07-11 09:44] LABS: CKMB 2.2 ng/mL (0-6.6)
[2018-07-11 09:47] LABS: Iron 8 ug/dL (50-170); Iron Binding Capacity, Total 223 mcg/dL (265-497)
[2018-07-11] MEDS: Atorvastatin Calcium 10 MG TAB PO SCH (10:12)
[2018-07-11] MEDS: Doxycycline 100 MG CAP PO SCH ×2 (10:12→21:24)
[2018-07-11] MEDS: Enoxaparin Sodium 40 MG/0.4 ML SYRINGE SC SCH (10:12)
[2018-07-11] MEDS: Hydrocortisone Sod Succ/PF 100 mg/2 ml Vial IVP SCH ×3 (10:13→21:24)
[2018-07-11] MEDS: Metoprolol Tartrate 25 MG TAB PO SCH ×2 (10:14→21:24)
[2018-07-11] MEDS ORDERED: Sodium Chloride 0.9% 500 ML IVPB SCH (10:15)
[2018-07-11] MEDS ORDERED: Sodium Chloride 0.9% 1,000 ML IV SCH ×2 (11:15→13:45)
--- NOTE | 2018-07-11 12:52 | PDOC.PULCN ---
Pulmonology Consult: HPI - Date of Consult Date: 07/11/18 Time: 09:00 - Consult Details Reason for Consult: IMCU admit - History of Present Illness HPI: DEIDRE EPSTEIN is a 83 year-old F 83 yo f with pmhx of HTN and ?arrhythmia, not on rate control or anticoagulation at home, who initially presented after a near syncopal episode after leaving her PCP's office yesterday, who was admitted for presyncope and hypovolemic hyponatremia. C/o chest pain this morning. Hypotensive overnight. Afib with RVR overnight. Pulmonology Consult: ROS - Review of Systems Constitutional: negative: fever, chills Cardiovascular: chest pain. negative: palpitations, orthopnea, paroxysmal nocturnal dyspnea Respiratory: chest tightness. negative: cough, short of breath, tachypnea, wheezing Pulmonology Consult: PMH Source: patient, family Past Medical History: HTN ? hx of an arrhythmia ?COPD OA, on prednisone daily Sciatica - Family History Pertinent family history: mother-cva - Social History Smoking Status: Never smoker Alcohol Use: none Drug Use History: none Pulmonology Consult: Meds - Medications Medications: Current Medications Acetaminophen (Tylenol) 650 mg PO Q4H PRN PRN Reason: Headache/Fever/Mild Pain (1-3) Atorvastatin Calcium (Lipitor) 10 mg PO QAM-WM [facility] Last Admin: 07/11/18 10:12 Dose: 10 mg Doxycycline Hyclate (Vibramycin) 100 mg PO BID [facility] Last Admin: 07/11/18 10:12 Dose: 100 mg Enoxaparin Sodium (Lovenox) 40 mg SC 0900 [facility] Last Admin: 07/11/18 10:12 Dose: 40 mg Gabapentin (Neurontin) 100 mg PO TID [facility] Last Admin: 07/11/18 10:13 Dose: 100 mg Hydrocortisone Sodium Succinate (Solu-Cortef) 50 mg IVP Q6H [facility] Last Admin: 07/11/18 10:13 Dose: 50 mg Ceftriaxone Sodium 1 gm/ (Sodium Chloride) 100 mls @ 200 mls/hr IVPB Q24HR [facility] Last Admin: 07/11/18 01:53 Dose: 100 mls Diltiazem HCl 125 mg/ Sodium (Chloride) 125 mls @ 0 mls/hr IVPB INF [facility]OM[facility]; Protocol Metoprolol Tartrate (Lopressor) 25 mg PO BID [facility] Last Admin: 07/11/18 10:14 Dose: 25 mg Ondansetron HCl (Zofran Odt) 4 mg PO Q6H PRN PRN Reason: Nausea/Vomiting Ondansetron HCl (Zofran) 4 mg IVP Q6H PRN PRN Reason: Nausea/Vomiting Tramadol HCl (Ultram) 50 mg PO Q6H PRN PRN Reason: Severe Pain (7-10) - Allergies Allergies/Adverse Reactions: Allergies Allergy/AdvReac Type Severity Reaction Status Date / Time aspirin Allergy Verified 07/11/18 01:42 lidocaine Allergy Verified 07/11/18 01:42 Pulmonology Consult: PE - Physical Exam Constitutional: NAD HEENT: PERRLA, moist MMs Deviation from normal: irregularly irregular Respiratory: other (crackles bases bilaterally) Gastrointestinal: soft, non-tender, no distention Pulmonology Consult: Results - Labs Result Diagrams: 07/12/18 02:45 07/12/18 02:45 Pulmonology Consult: A/P - Problem (1) Atrial fibrillation with RVR Current Visit: Yes Code(s): I48.91 - UNSPECIFIED ATRIAL FIBRILLATION Status : Resolved (2) Sepsis Current Visit: Yes Code(s): A41.9 - SEPSIS, UNSPECIFIED ORGANISM Status: Resolved (3) Chest pain Current Visit: No Code(s): R07.9 - CHEST PAIN, UNSPECIFIED Status: Resolved (4) Adrenal insufficiency Current Visit: Yes Code(s): E27.40 - UNSPECIFIED ADRENOCORTICAL INSUFFICIENCY Status: Acute (5) Hyponatremia Current Visit: Yes Code(s): E87.1 - HYPO-OSMOLALITY AND HYPONATREMIA Status : Resolved (6) Hypotension Current Visit: No Status: Resolved (7) Back pain Current Visit: No Code(s): M54.9 - DORSALGIA, UNSPECIFIED Status: Chronic (8) GERD (gastroesophageal reflux disease) Current Visit: No Code(s): K21.9 - GASTRO-ESOPHAGEAL REFLUX DISEASE WITHOUT ESOPHAGITIS Status: Chronic (9) HLD (hyperlipidemia) Current Visit: No Code(s): E78.5 - HYPERLIPIDEMIA, UNSPECIFIED Status: Chronic (10) HTN (hypertension) Current Visit: No Code(s): I10 - ESSENTIAL (PRIMARY) HYPERTENSION Status: Chronic - Time Time: 50% of the time was spent in coordination of care (as documented) at patient's floor/unit and/or counseling patient. Time with Patient: greater than 70 minutes - Plan Plan: 83 yo f with pmhx of an ?arrhythmia, HTN, sciatica presented with a presyncopal episode admitted for presyncope and hypovolemic hyponatremia, who was found o/n to be in Afib wit RVR and hypotensive, with chest pain this morning. #Afib with RVR -rate 120s-150s, low normal BP -pt currently on a dilt drip, -pt given metoprolol 5mg IV and 5mg PO this am -cardiology on board #Sepsis vs septic shock, unknown source, possible retrocardiac CAP -rocephin started in the ER, will add doxycycline for tx of a possible retrocardiac CAP -prcal .18 -Ucx growing gram neg louise <5,000 CFU, nonhemolytic strep <10,000 CFU -NS @ 100ml/hr, will dc and provide another fluid bolus based on hypercontractility of LV per semiconductor equipment technician, CVP 2-3, and persistently hypotensive this morning; central line placed, if continues to be hypotensive and rise in CVP, will start pressor support #Chestpain. this morning, new -suspect NSTEMI 2/2 deman ischemia -asymptomatic after 2mg IV morphine -troponin elevated this morning, and rising; .145, .27 -EKG shows no ST changes, will repeat d/t rising troponin #Possible AI -started hydrocortisone 50mg IV q6h for 48 hours #Hyponatremai, hypovolemic- -sodium normalized this am #presyncope- -suspect cardiac relating to afib vs hypovolemic -pt bolused 2L NS o/n, central line placed, will continue NS bolus of 500ml IV prn based on volume status -ordered mag, phosph, tsh, echo #Hypophosphatemia- -replaced DVT ppx: lovenox GI ppx: protonix Pt seen and evaluated at bedside with Dr. Do. Addendum - Attending - Attending Attestation Date/Time: 07/11/18 1300 I personally evaluated the patient and discussed the management with Dr. Becker. I agree with the History, Examination, Assessment and Plan documented above with any addition or exceptions noted below. 70 minutes have been devoted to this patient in various activities. I personally reviewed all imaging studies and laboratory data noted within this document. For fifty percent of this time, I was interacting with the patient at the bedside or coordinating care with the care team. For the remainder of the time I was immediately available to the patient in the hospital unit.
[2018-07-11] MEDS ORDERED: Norepinephrine 8 MG/0.9% NS 250 ML IVPB SCH (13:45)
[2018-07-11] MEDS ORDERED: Norepinephrine 8 MG/0.9% NS 250 ML ONE (14:12)
--- NOTE | 2018-07-11 14:30 | CON ---
DATE OF CONSULTATION: 07/11/2018 REASON FOR CONSULTATION: Atrial fibrillation, chest pain. HISTORY OF PRESENT ILLNESS: Chaya Mcdaniel is a pleasant 83-year-old woman. Her predominant problem has been severe low back pain. She has a compression fracture in her low back. She was admitted to the hospital last night after a syncopal episode. She had been having a lot of low back pain. She has been on increasing amounts of steroids. On the way home, walking out of car, she transiently lost consciousness. She got out of the car, closed the door and dropped to the ground. She regained consciousness when she fell. There is a previous history of presyncopal spells with dehydration. The patient has decreased appetite related to pain and constipation. She has been having low back pain radiating down her leg, sharp and stabbing. ALLERGIES: TO ASPIRIN AND LIDOCAINE. PAST MEDICAL HISTORY: 1. Hypertension. 2. "Heart arrhythmia.". SOCIAL HISTORY: Tobacco 20-30 years ago. No alcohol or drugs. ALLERGIES: LIDOCAINE, ITCHING. ASPIRIN, GI UPSET. 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 REVIEW OF SYSTEMS: CONSTITUTIONAL: Weakness and fatigue. VISION: No changes. HEARING: No changes. PULMONARY: No shortness of breath. CARDIAC: She does have some palpitations and some chest pain, but burning in the left lower chest below her left breast. GASTROINTESTINAL: She is constipated. GENITOURINARY: No incontinence or dysuria. SKIN: No rashes. NEUROLOGIC: No unilateral weakness or numbness. PHYSICAL EXAMINATION: GENERAL: This is a very pleasant elderly woman. She is in lot of low back pain. VITAL SIGNS: Blood pressure 124/88, pulse is initially 140, it is irregular. LUNGS: Clear. CARDIAC: Irregularly irregular. ABDOMEN: Soft, nontender. EXTREMITIES: No clubbing or cyanosis. There is no edema. She has palpable pedal pulses. SKIN: Warm and dry. PSYCHIATRIC: Mood and affect. She is in a lot of pain. PERTINENT LABORATORY DATA: The troponin levels were normal. The hemoglobin 10.0. She does have history of iron deficiency reviewing the previous notes. IMAGING STUDIES: EKG reveals atrial fibrillation with a rapid ventricular response. ASSESSMENT: 1. Syncope, probably related to orthostatic hypotension and atrial fibrillation with a rapid ventricular response. 2. Low back pain seems to be related to compression fracture. 3. Atrial fibrillation with a rapid rate. 4. Hypotension, improving with intravenous fluids. PLAN: 1. She is on intravenous diltiazem. We have added beta-blockers. 2. Echocardiogram to be done. 3. Consideration for transesophageal echo and cardioversion. 4. Depending on the left ventricular function, amiodarone maybe her best option, although that is still somewhat problematic as it does have a tendency to cause constipation. 5. Troponin level will be followed. We will order. 6. We will continue to follow with you. Job ID: [id number]
--- NOTE | 2018-07-11 14:37 | PDOC.EVN ---
Event Note - Event Note Event Note: 1400: Pt continues to be hypotensive, lowest 60/40s, currenlty with CVP of 8-9. Stopped dilt drip. Bolused pt an additional 1 NS, and will transfer to the ICU for levophed drip. HR 50-60s. Pt altered. A&ox0 and agitated. Additionally, second troponin bumped to .27, repeat EKG showed a fib with rate in the 60s, no ST changes. 14:40 BP now 105/60 with starting levophed. Will continue to monitor. Pt moved to A2.
[2018-07-11 15:01] LABS: Troponin I 0.299 ng/mL (< 0.028)
--- NOTE | 2018-07-11 16:50 | EKG ---
Test Reason : Blood Pressure : / mmHG Vent. Rate : 145 BPM Atrial Rate : 136 BPM P-R Int : 000 ms QRS Dur : 070 ms QT Int : 326 ms P-R-T Axes : 000 -04 055 degrees QTc Int : 506 ms A fib with RVR Nonspecific T wave abnormality Abnormal ECG When compared with ECG of 30-APR-2018 07:47, (Unconfirmed) Current undetermined rhythm precludes rhythm comparison, needs review Confirmed by DR. Rocio PATTERSON (3) on 07/11/2018 4:50:22 PM Referred By: LARISSA Confirmed By:DR. Rocio PATTERSON
--- NOTE | 2018-07-11 16:53 | EKG ---
Test Reason : Blood Pressure : / mmHG Vent. Rate : 101 BPM Atrial Rate : 138 BPM P-R Int : 000 ms QRS Dur : 082 ms QT Int : 336 ms P-R-T Axes : 000 001 022 degrees QTc Int : 435 ms Atrial fibrillation with rapid ventricular response with premature ventricular or aberrantly conducte d complexes Nonspecific ST and T wave abnormality Abnormal ECG When compared with ECG of 11-JUL-2018 02:00, (Unconfirmed) Previous ECG has undetermined rhythm, needs review Confirmed by DR. Rocio PATTERSON (3) on 07/11/2018 4:53:08 PM Referred By: BRIDGET Confirmed By:DR. Rocio PATTERSON
--- NOTE | 2018-07-11 17:03 | EKG ---
Test Reason : REPEAT Blood Pressure : / mmHG Vent. Rate : 064 BPM Atrial Rate : 110 BPM P-R Int : 000 ms QRS Dur : 082 ms QT Int : 452 ms P-R-T Axes : 000 018 016 degrees QTc Int : 466 ms Atrial fibrillation Abnormal ECG When compared with ECG of 11-JUL-2018 08:42, (Unconfirmed) Vent. rate has decreased BY 37 BPM Nonspecific T wave abnormality no longer evident in Lateral leads Confirmed by DR. Rocio PATTERSON (3) on 07/11/2018 5:02:42 PM Referred By: Patrick DIAS Confirmed By:DR. Rocio PATTERSON
[2018-07-11 17:24] LABS: Troponin I 0.225 ng/mL (< 0.028)
[2018-07-11] MEDS ORDERED: PHOS-NAK 1 PKT PACK PO SCH (17:45)
[2018-07-12] MEDS: cefTRIAXone\\ROCEPHIN 1 GM in Sodium Chloride 0.9% 100 ML IVPB SCH (02:28)
[2018-07-12] MEDS: Haloperidol Lactate 5 MG/ML VIAL SLOW IVP SCH ×2 (02:28→02:42)
[2018-07-12] MEDS ORDERED: Haloperidol Lactate 5 MG/ML VIAL ONE (02:39)
[2018-07-12] MEDS: Hydrocortisone Sod Succ/PF 100 mg/2 ml Vial IVP SCH ×5 (03:00→21:55)
[2018-07-12 03:42] LABS: #Lymphocytes 0.8 thou/uL (1.20-3.40); #Monocytes 0.3 thou/uL (0.11-0.59); #Neutrophils 7.7 thou/uL (1.40-6.50); %Lymphocytes 9.5 % (21.0-51.0); %Monocytes 2.9 % (0.0-10.0); %Neutrophils 87.6 % (42.0-75.0); Hemoglobin 8.8 g/dL (12.0-16.0); Mean Corpuscular HGB CONC 31.2 g/dL (32.0-36.0); Mean Corpuscular Hemoglobin 27.3 pg (27.0-31.0); Mean Corpuscular Volume 87.5 fL (78.0-98.0); Mean Platelet Volume 9.3 fL (7.4-10.4); Platelet Count 295 thou/uL (130-400); RBC Distribution Width 17.6 % (11.5-14.5); Red Blood Cell (RBC) Count 3.21 mill/uL (4.20-5.40); White Blood Cell (WBC) Count 8.8 thou/uL (4.8-10.8)
[2018-07-12 04:07] LABS: ALT (SGPT) 9 U/L (8-55); AST (SGOT) 15 U/L (5-34); Albumin 3.4 g/dL (3.4-4.8); Alkaline Phosphatase 43 U/L (40-150); Anion Gap 12 mmol/L (10-20); BUN (Urea Nitrogen) 10 mg/dL (9.8-20.1); Bilirubin, Total 0.3 mg/dL (0.2-1.2); Calc. Creatinine Clearance 58 mL/min (70-130); Calcium 7.8 mg/dL (7.8-10.44); Carbon Dioxide 19 mmol/L (23-31); Chloride 112 mmol/L (98-107); Estimated GFR-MDRD Greater than 90; Globulin 2.2 g/dL (2.4-3.5); Glucose 116 mg/dL (83-110); Potassium 3.9 mmol/L (3.5-5.1); Protein, Total 5.6 g/dL (6.0-8.3); Sodium 139 mmol/L (136-145)
[2018-07-12] MEDS: Metoprolol Tartrate 25 MG TAB PO SCH ×2 (07:24→21:54)
[2018-07-12] MEDS: Enoxaparin Sodium 40 MG/0.4 ML SYRINGE SC SCH (07:24)
[2018-07-12] MEDS: Gabapentin 100 MG CAP PO SCH ×3 (07:24→21:54)
--- NOTE | 2018-07-12 07:26 | PDOC.FM ---
- Subjective Subjective: Back in NSR since yesterday afternoon with normal bp's since about 1430 yesterday. She was weaned off the levophed yesterday afternoon and has not required it since. Actually bp's elevated this morning. She has been agitated and altered off and on since yesterday afternoon, a&ox 1 this morning, and complaining of left sided belly pain. Denies any blood stools, has not stooled since being here. Denies chest pain. - Objective Vital Signs & Weight: Vital Signs (12 hours) Pulse Ox 07/11/18 20:00 100 Weight Admit Weight 56.699 kg Weight 56.4 kg Most Recent Monitor Data Heart Rate from ECG 91 NIBP 164/85 NIBP BP-Mean 111 Respiration from ECG 13 SpO2 100 I&O: 07/11/18 07/12/18 07/13/18 06:59 06:59 06:59 Intake Total 1020 92840.5 Output Total 1300 2880 Balance -280 04129.5 Result Diagrams: 07/13/18 05:48 07/13/18 05:48 Phys Exam - Physical Examination Constitutional: NAD HEENT: PERRLA, moist MMs Respiratory: no wheezing, no rales, clear to auscultation bilateral Cardiovascular: RRR, no significant murmur Gastrointestinal: soft mildly tender left side; hypoactive bowel sounds, no rigidity, not distende Musculoskeletal: no edema, pulses present Neurological: non-focal, normal sensation, moves all 4 limbs Deviation from normal: a&ox1 Skin: no rash, normal turgor, cap refill <2 seconds Dx/Plan (1) Acute encephalopathy Code(s): G93.40 - ENCEPHALOPATHY, UNSPECIFIED Status: Acute (2) Hypophosphatemia Code(s): E83.39 - OTHER DISORDERS OF PHOSPHORUS METABOLISM Status: Acute (3) Atypical pneumonia Code(s): J18.9 - PNEUMONIA, UNSPECIFIED ORGANISM Status: Acute (4) Abdominal pain Code(s): R10.9 - UNSPECIFIED ABDOMINAL PAIN Status: Acute Qualifiers: Abdominal location: left upper quadrant Qualified Code(s): R10.12 - Left upper quadrant pain (5) Atrial fibrillation with RVR Code(s): I48.91 - UNSPECIFIED ATRIAL FIBRILLATION Status: Resolved (6) Sepsis Code(s): A41.9 - SEPSIS, UNSPECIFIED ORGANISM Status: Resolved (7) Chest pain Code(s): R07.9 - CHEST PAIN, UNSPECIFIED Status: Resolved (8) Adrenal insufficiency Code(s): E27.40 - UNSPECIFIED ADRENOCORTICAL INSUFFICIENCY Status: Acute (9) Hyponatremia Code(s): E87.1 - HYPO-OSMOLALITY AND HYPONATREMIA Status: Resolved (10) Hypotension Status: Resolved (11) Back pain Code(s): M54.9 - DORSALGIA, UNSPECIFIED Status: Chronic (12) GERD (gastroesophageal reflux disease) Code(s): K21.9 - GASTRO-ESOPHAGEAL REFLUX DISEASE WITHOUT ESOPHAGITIS Status: Chronic (13) HLD (hyperlipidemia) Code(s): E78.5 - HYPERLIPIDEMIA, UNSPECIFIED Status: Chronic (14) HTN (hypertension) Code(s): I10 - ESSENTIAL (PRIMARY) HYPERTENSION Status: Chronic - Plan Plan: 83 yo f with pmhx of an ?arrhythmia, HTN, sciatica presented with a presyncopal episode admitted for presyncope and hypovolemic hyponatremia who now has the following problems: #acute encephalopathy- -currently a&ox1 -acutely agitated/delirious overnight, given 2mg morphine -likely 2/2 hypoperfusion yesterday -no other neuro focal deficits, however if pt doesn't improve, we could consider a head CT wo contrast -pt is not hypoxic, saturating well on RA with normal RR -leukocytosis downtrended, afebrile overnight, currently on abx for CAP, blood cx show NGTD -bp wnl overnight, pt weaned off levophed drip -there could be a potential underlying dementia -electrolytes wnl this morning, except for phosph, which was replaced -renal function improved and wnl from admission -no hx of trauma #Hypophosphatemia- -replaced this am #abdominal pain- -left sided, mild guarding/rigidity -has not stooled during hospitalization, ordered miralax and docusate/senna for constipation -KUB shows nonspecific bowel gas pattern -will order abdominal CT with contrast since this is new and no prior imaging during original workup in the ER #HTN- -restarted home Lisinopril 20mg daily #presyncope- -suspect cardiac relating to afib vs hypovolemic -echo showed normal EF, pt in afib at that time, but since has converted back to NSR -bps wnl this morning #Afib with RVR -resolved yesterday ~1400 07/11 -[id number] o/n #Sepsis -resolved -prcal .18-->.10 -possible retrocardiac pneumonia, most likely atypical vs viral -can likely dc abx after blood cx negative for 48 hours and can tx with doxy for atypical pneumonia for a 5 day course #NSTEMI 2/2 demand ischemia -asymptomatic after 2mg IV morphine -troponins .145, .27, .29, .225 -EKG shows no ST changes on initial or repeat yesterday #Possible AI -hypotension resolved, glucose 116 -ok to space out hydrocortisone 50mg IV to q12h and then dc #Hyponatremia, hypovolemic- -sodium wnl #HLD- -continued lovastatin DVT ppx: lovenox GI ppx: protonix CODE: full Dispo: stable for transfer to [facility] Oziel Becker MD, PGY-2 ICU Pt seen and evaluated with Dr. Chilel Addendum - Attending - Attending Attestation Date/Time: 07/13/18 1338 I personally evaluated the patient and discussed the management with Dr. Stephenson on 07/12. I agree with the History, Examination, Assessment and Plan documented above with any addition or exceptions noted below.
[2018-07-12] MEDS ORDERED: hydrALAZINE 20 MG/ML VIAL SLOW IVP PRN (07:44)
[2018-07-12] MEDS ORDERED: Polyethylene Glycol 3350 17 GM Packet PO SCH (07:45)
[2018-07-12 07:49] LABS: Phosphorus 1.8 mg/dL (2.3-4.7)
[2018-07-12] MEDS ORDERED: PHOS-NAK 1 PKT PACK PO SCH (08:00)
--- NOTE | 2018-07-12 08:01 | RAD ---
Exam: Single view of the abdomen HISTORY: Left-sided abdominal pain COMPARISON: None FINDINGS: Single view of the abdomen shows a nonspecific, nonobstructive bowel gas pattern. No suspic ious calcifications are seen. The bones are unremarkable. IMPRESSION: Unremarkable exam
[2018-07-12] MEDS: Lisinopril 20 MG TAB PO SCH (08:51)
[2018-07-12] MEDS: Atorvastatin Calcium 10 MG TAB PO SCH (08:52)
[2018-07-12] MEDS: Doxycycline 100 MG CAP PO SCH (08:52)
[2018-07-12] MEDS: Docusate 100 MG CAP PO SCH ×2 (08:52→21:54)
[2018-07-12] MEDS ORDERED: Lisinopril 20 MG TAB PO SCH (09:00)
[2018-07-12] MEDS ORDERED: Morphine 2 MG/ML SYRINGE SLOW IVP SCH (09:00)
--- NOTE | 2018-07-12 10:09 | PRG ---
DATE OF SERVICE: 07/12/2018 SUBJECTIVE: Ms. Mcdaniel is somewhat confused and disoriented. OBJECTIVE: VITAL SIGNS: Her blood pressure is high now, 190/90; pulse is 90 with PACs. LUNGS: Clear. CARDIAC: Normal S1, normal S2 with premature atrial contractions on the monitor. EXTREMITIES: Warm and dry. ASSESSMENT: 1. Paroxysmal atrial fibrillation. 2. The patient has now become anemic with hemoglobin dropping to 8.8. 3. Abdominal pain, thought to be possibly constipation, but the CT scan My plan is to evaluate the abdomen. PLAN: 1. She is on metoprolol 25 mg twice a day. 2. Lisinopril. 3. Check complete blood count in the morning. She is on some anticoagulation. Reluctant to fully anticoagulate with dropping hemoglobin. Job ID: [id number]
[2018-07-12] MEDS ORDERED: ISOVUE-370 76%-LOCM 1 ML ONE (10:36)
[2018-07-12] MEDS ORDERED: Magnesium 2 GM/50 ML 2 GM in Premix Bag 1 BAG IVPB SCH (11:00)
--- NOTE | 2018-07-12 11:08 | PRG ---
DATE OF SERVICE: 07/12/2018 SERVICE: Pulmonary Medicine. INTERVAL HISTORY: Yesterday, the patient was given some medication. Her blood pressures fell off. Ultimately, she was moved to the ICU. She was given multiple liters of fluid until her CVP was adequate. After that, she was initially on Levophed. She required this for a period of 3 or 4 hours. After that, her blood pressures firmed up very nicely. Since then, she has had increasing abdominal discomfort. This morning, she is guarding, and is trying to prevent me from touching her belly because of the severe discomfort. PHYSICAL EXAMINATION: VITAL SIGNS: Afebrile, pulse 74, blood pressure 141/90, respirations 15, and saturation 100% on 2 L nasal cannula. GENERAL: The patient is awake and alert, in no apparent distress. She is alert and oriented x1. HEENT: Normocephalic and atraumatic. Sclerae white. Conjunctivae pink. Oral mucosa is moist without lesions. LUNGS: Decent air entry. No prolonged expiratory phase, wheezing or crackles are appreciated. HEART: Normal rate and regular. ABDOMEN: She has tenderness to palpation throughout with positive rebound. Bowel sounds are hypoactive. : Gonzalez catheter in place. NEUROLOGIC: Grossly nonfocal. LABORATORY DATA: WBC 8.8, hemoglobin 8.8, platelets 295,000. Phosphorus 1.8, potassium 3.9. Magnesium 1.7. Liver function studies are essentially unremarkable. Troponin was previously downtrending to 0.225. Procalcitonin is completely negative. Urinalysis is negative. Blood cultures x2 and urine culture negative. IMAGING: Abdominal x-ray demonstrates no significant abnormalities. Nonobstructive bowel gas pattern is present. Echocardiogram shows normal ejection fraction with mild concentric left ventricular hypertrophy. Underlying atrial fibrillation is noted. Mild dilation of the left atrium. Normal pulmonary artery pressures are noted. ASSESSMENT: 1. Acute hypoxic respiratory failure, resolved. 2. Atrial fibrillation with rapid ventricular response, returned to sinus rhythm. 3. Systemic inflammatory response syndrome without clear evidence of infection. 4. Relative adrenal insufficiency, possible. 5. Abdominal pain. DISCUSSION AND PLAN: We will continue our empiric antibiotics and stress dose of steroids. Magnesium and phosphorus will be replaced today. Because of her exquisite belly discomfort, we will pursue a CT of the abdomen and pelvis. It will help us look at the left lower lobe as well. Pulmonary Critical Care will continue to follow along while the patient remains in this location. Job ID: [id number]
[2018-07-12] MEDS ORDERED: Potassium Phosphate 30 MMOL in Sodium Chloride 0.9% 500 ML IVPB SCH (11:30)
[2018-07-12 12:20] VITALS: BMI 21.3
--- NOTE | 2018-07-12 14:00 | CT ---
CT ABDOMEN WITH IV CONTRAST: Date: 07/12/18 INDICATINO: Abdominal distention and pain. COMPARISON: CTA aortic dissection protocol dated 06/13/16 and renal ultrasound dated 04/26/16. FINDINGS: There are small bilateral pleural effusions with bibasilar atelectasis. Small hiatal hernia. Small cysts are seen within the right and left hepatic lobes. There is a stable 4.2 cm cyst involving the superior pole of the left kidney. Small cysts are seen ag ain in the right superior renal pole. Pancreas and adrenal glands are normal appearing. Spleen is normal appearing. No free fluid or enlarged lymph nodes are evident. There are moderate calcifications involving the abdominopelvic vasculature. Small and large bowel appear within normal limits, within the visualized segments. There is diffuse osteopenia. There is a mild superior end plate compression deformity of L1, which is stable. IMPRESSION: 1. Small bilateral pleural effusions and bibasilar atelectasis. 2. No visible acute abnormality seen within the abdomen. 3. Stable renal cysts and hepatic cysts. 4. Stable mild compression abnormality of L1. POS: CET
[2018-07-12] MEDS: traMADol HCl 50 MG TAB PO PRN ×2 (14:09→21:54)
--- NOTE | 2018-07-12 18:15 | PDOC.CTH ---
Cardiology Progress Note - Subjective Pt moved to ICU last night for hypotension. Pt back in SR and off levophed. BP much better. No complaints - Objective Vital Signs Temp Pulse Pulse Pulse BP BP BP 07/12/18 17:00 98.3 F 07/12/18 15:54 99 103 H 93 134/69 158/75 H 127/77 07/12/18 13:17 78 94 90 129/71 178/92 H 175/99 H 07/12/18 12:00 98.8 F 07/12/18 07:00 98.4 F Pulse Ox Pulse Ox 07/12/18 17:00 07/12/18 15:54 100 100 07/12/18 13:17 100 07/12/18 12:00 07/12/18 07:00 Admit Weight 125 lb Weight 124 lb 5.451 oz 07/11/18 07/12/18 07/13/18 06:59 06:59 06:59 Intake Total 1020 3516 2045 Output Total 1300 2880 2475 Balance -280 636 -430 - Physical Examination General/Neuro: NAD Neck: no JVD present Lungs: CTA, unlabored respirations Heart: PMI normal, RRR Abdomen: NT/ND, soft Extremities: + femoral B - Labs Result Diagrams: 07/12/18 02:45 07/12/18 02:45 Troponin/CKMB CK-MB (CK-2) 2.2 ng/mL (0-6.6) 07/11/18 04:45 Troponin I 0.225 ng/mL (< 0.028) H 07/11/18 16:43 - Assessment/Plan afib Hypotension MS changes Etiology to hypotension unknown. Now resolved Pt in SR Given Hb of 8, recommend no ACT for now EF normal on echo
[2018-07-13] MEDS: Hydrocortisone Sod Succ/PF 100 mg/2 ml Vial IVP SCH (03:20)
[2018-07-13] MEDS: cefTRIAXone\\ROCEPHIN 1 GM in Sodium Chloride 0.9% 100 ML IVPB SCH (03:20)
--- NOTE | 2018-07-13 06:15 | PDOC.CTH ---
Cardiology Progress Note - Subjective Doing very well today. No complaints. - Objective Vital Signs Temp Pulse Resp BP Pulse Ox 07/13/18 04:00 98.1 F 92 16 148/74 H 100 07/13/18 02:31 97 07/13/18 00:00 98.1 F 85 16 133/64 97 07/12/18 20:00 97.7 F 93 16 161/70 H 97 07/12/18 18:35 98.6 F 87 18 148/70 H 100 Admit Weight 125 lb Weight 124 lb 5.451 oz 07/11/18 07/12/18 07/13/18 06:59 06:59 06:59 Intake Total 1020 3516 2045 Output Total 1300 2880 3925 Balance -280 636 -1880 - Physical Examination General/Neuro: alert & oriented x3, NAD Neck: no JVD present Lungs: unlabored respirations Heart: PMI normal, RRR Abdomen: no HSM, NT/ND Extremities: + femoral B - Telemetry Telemetry Rhythm: SR - Labs Result Diagrams: 07/13/18 05:48 07/13/18 05:48 Troponin/CKMB CK-MB (CK-2) 2.2 ng/mL (0-6.6) 07/11/18 04:45 Troponin I 0.225 ng/mL (< 0.028) H 07/11/18 16:43 Afib HYpotension ?adrenal insufficiency Pt doing much better Recommend full dose ASA Plan is a 3 week event recorder and fu in office No ACT at this time given it occurred secondary to marked hypotension requiring pressors. - Assessment/Plan afib Hypotension MS changes
[2018-07-13 06:38] LABS: #Lymphocytes 0.5 thou/uL (1.20-3.40); #Monocytes 0.3 thou/uL (0.11-0.59); #Neutrophils 6.7 thou/uL (1.40-6.50); %Basophils 0.1 % (0.0-1.0); %Eosinophils 0.3 % (0.0-10.0); %Monocytes 4.2 % (0.0-10.0); %Neutrophils 88.6 % (42.0-75.0); Hemoglobin 9.5 g/dL (12.0-16.0); Mean Corpuscular HGB CONC 32.1 g/dL (32.0-36.0); Mean Corpuscular Hemoglobin 27.5 pg (27.0-31.0); Mean Corpuscular Volume 85.8 fL (78.0-98.0); Mean Platelet Volume 8.9 fL (7.4-10.4); Platelet Count 308 thou/uL (130-400); Red Blood Cell (RBC) Count 3.44 mill/uL (4.20-5.40); White Blood Cell (WBC) Count 7.6 thou/uL (4.8-10.8)
[2018-07-13 07:10] LABS: ALT (SGPT) 10 U/L (8-55); AST (SGOT) 15 U/L (5-34); Albumin 3.5 g/dL (3.4-4.8); Alkaline Phosphatase 39 U/L (40-150); Anion Gap 14 mmol/L (10-20); BUN (Urea Nitrogen) 10 mg/dL (9.8-20.1); Bilirubin, Total 0.3 mg/dL (0.2-1.2); Calc. Creatinine Clearance 58 mL/min (70-130); Calcium 7.9 mg/dL (7.8-10.44); Carbon Dioxide 19 mmol/L (23-31); Chloride 111 mmol/L (98-107); Estimated GFR-MDRD Greater than 90; Globulin 2.3 g/dL (2.4-3.5); Glucose 105 mg/dL (83-110); Potassium 4.3 mmol/L (3.5-5.1); Protein, Total 5.8 g/dL (6.0-8.3); Sodium 140 mmol/L (136-145)
[2018-07-13] MEDS: Docusate 100 MG CAP PO SCH ×2 (08:53→21:09)
[2018-07-13] MEDS: Metoprolol Tartrate 25 MG TAB PO SCH ×2 (08:53→21:09)
[2018-07-13] MEDS: Atorvastatin Calcium 10 MG TAB PO SCH (08:53)
[2018-07-13] MEDS: Lisinopril 20 MG TAB PO SCH (08:53)
[2018-07-13] MEDS: Gabapentin 100 MG CAP PO SCH ×3 (08:53→21:09)
[2018-07-13] MEDS: Polyethylene Glycol 3350 17 GM Packet PO SCH (08:55)
[2018-07-13] MEDS: Acetaminophen 325 MG TAB PO PRN ×2 (08:55→15:40)
[2018-07-13] MEDS: Enoxaparin Sodium 40 MG/0.4 ML SYRINGE SC SCH (08:55)
[2018-07-13] MEDS ORDERED: predniSONE 1 MG/ML ML PO SCH (09:00)
[2018-07-13] MEDS: predniSONE 5 MG TAB PO SCH (10:22)
[2018-07-13] MEDS: Cefdinir 300 MG CAP PO SCH ×2 (10:22→21:09)
[2018-07-13] MEDS ORDERED: Famotidine/PF 20 mg/2ml Vial SLOW IVP SCH (11:00)
--- NOTE | 2018-07-13 11:07 | PDOC.FM ---
- Subjective Subjective: JASMIN overnight. Pt reports she has some epigastric discomfort with eating. No CP pressure, NVDC. She is alert and oriented X3 this am and reports she is feeling good. - Objective MAR Reviewed: Yes Vital Signs & Weight: Vital Signs (12 hours) Temp Pulse Resp BP BP Pulse Ox 07/13/18 08:53 160/73 H 07/13/18 08:00 100 07/13/18 07:55 97.8 F 97 20 135/96 H 100 07/13/18 04:00 98.1 F 92 16 148/74 H 100 07/13/18 02:31 97 07/13/18 00:00 98.1 F 85 16 133/64 97 Weight Admit Weight 56.699 kg Weight 56.4 kg Most Recent Monitor Data Heart Rate from ECG 94 NIBP 120/63 NIBP BP-Mean 82 Respiration from ECG 17 SpO2 100 I&O: 07/12/18 07/13/18 07/14/18 06:59 06:59 06:59 Intake Total 3516 2045 100 Output Total 2880 3925 Balance 636 -1880 100 Result Diagrams: 07/13/18 05:48 07/13/18 05:48 Phys Exam - Physical Examination Constitutional: NAD HEENT: PERRLA, sclera anicteric Neck: no nodes, no JVD Respiratory: no wheezing, no rales, no rhonchi, clear to auscultation bilateral Cardiovascular: RRR, no significant murmur, no rub Gastrointestinal: soft, non-tender, no distention, positive bowel sounds Musculoskeletal: no edema Neurological: non-focal, moves all 4 limbs Lymphatic: no nodes Skin: no rash, cap refill <2 seconds Dx/Plan (1) Acute encephalopathy Code(s): G93.40 - ENCEPHALOPATHY, UNSPECIFIED Status: Acute (2) Afib Code(s): I48.91 - UNSPECIFIED ATRIAL FIBRILLATION Status: Acute (3) Atypical pneumonia Code(s): J18.9 - PNEUMONIA, UNSPECIFIED ORGANISM Status: Acute (4) Hypophosphatemia Code(s): E83.39 - OTHER DISORDERS OF PHOSPHORUS METABOLISM Status: Acute (5) Atrial fibrillation with RVR Code(s): I48.91 - UNSPECIFIED ATRIAL FIBRILLATION Status: Resolved (6) Hyponatremia Code(s): E87.1 - HYPO-OSMOLALITY AND HYPONATREMIA Status: Resolved (7) HLD (hyperlipidemia) Code(s): E78.5 - HYPERLIPIDEMIA, UNSPECIFIED Status: Chronic (8) HTN (hypertension) Code(s): I10 - ESSENTIAL (PRIMARY) HYPERTENSION Status: Chronic (9) History of KS (myocardial infarction) Code(s): I25.2 - OLD MYOCARDIAL INFARCTION Status: Chronic (10) Hypotension Status: Resolved - Plan Plan: #acute encephalopathy, resolved - pt has h/o of mild dementia although pt A&O X3 this am -no hx of trauma #Hypophosphatemia -replaced #abdominal pain- -ct abd yesterday negative - IV pepcid X1 and daily protonix - pt reports epigastric discomfort with food #HTN- -restarted home Lisinopril 20mg daily #presyncope- -2/2 afib rvr, spontenously converted to NSR and has remained in sinus #Afib with RVR -resolved #Sepsis -resolved -prcal .18-->.10 -cont 5 day course of oral abx #NSTEMI 2/2 demand ischemia -asymptomatic after 2mg IV morphine -troponins .145, .27, .29, .225 -EKG shows no ST changes on initial or repeat yesterday - no CP, resolved #Possible AI -pt currently on oral prednisone 5mg PO daily #Hyponatremia, hypovolemic -sodium wnl, resolved #HLD- -continued lovastatin DVT ppx: lovenox GI ppx: protonix CODE: full Dispo: Stable. Will need SNF vs rehab and likely ok for DC today vs tomorrow. Addendum - Attending - Attending Attestation Date/Time: 07/13/18 4353 I personally evaluated the patient and discussed the management with Dr. Vasquez. I agree with the History, Examination, Assessment and Plan documented above with any addition or exceptions noted below.
--- NOTE | 2018-07-13 11:46 | PQF ---
DEIDRE EPSTEIN HANNA *r [id number] CLINICAL DOCUMENTATION IMPROVEMENT CLARIFICATION FORM: ICD-10 Updated PLEASE DO AN ADDENDUM TO THE PROGRESS NOTE WITH ANY DOCUMENTATION UPDATES OR ADDITIONS AND CARRY THROUGH TO DC SUMMARY. THANK YOU. DATE: 07-13-18 ATTN: DR. CAMPOS / DR. BELCHER Please exercise your independent, professional judgment in responding to the clarification form. Clinical indicators are provided on the bottom of this form for your review Please check appropriate box(s): [ ] Acute Metabolic Encephalopathy [ [ Acute Septic Encephalopathy [ ] Acute Hypoxic Encephalopathy [x] Acute Encephalopathy in the setting of underlying dementia [ ] Other diagnosis [ ] Unable to determine For continuity of documentation, please document condition throughout progress notes and discharge summary. Thank You. CLINICAL INDICATORS - SIGNS / SYMPTOMS / LABS ED: ORTHOSTATIC HYPOTENSION / GENERALIZED WEAKNESS P 101-109 RR 15-20 - O2 SAT 92-99% ON RA T 99.1 ORAL 07-10 ([facility]PPNER) H&P: A-FIB W/ RVR 5-14 PN (BETH): FOUND TO BE IN A-FIB W/ RVR, HYPOTENSIVE, AND SEPTIC W/ POSSIBLE RETROCARDIAC PNA AND COMPLAINING OF CHEST PAIN. HYPONATREMIA 07-11 BP: SBP 57-122 DBP 37-78 5-14 PN (BETH): BP 60/40 - LEVOPHED DRIP - PT ALTERED - A&OX O AND AGITATED -15 PN (BETH): ACUTE ENCEPHALOPATHY; ATYPICAL PNA; 07-12 (BETH): ACUTE ENCEPHALOPATHY - acutely agitated/delirious likely 2/2 hypoperfusion yesterday - could be underlying dementia - hypophosphatemia RISK FACTORS 07-10 H&P (HEPPNER) : * DEMENTIA * HYPOTENSION * PRE-SYNCOPE W/ COLLAPSE * HYPONATREMIC HYPOVOLEMIA (NA 132) 5- PN (BETH): FOUND TO BE IN A-FIB W/ RVR, HYPOTENSIVE, AND SEPTIC W/ POSSIBLE RETROCARDIAC PNA AND COMPLAINING OF CHEST PAIN. TREATMENTS: CPOE: TRANSFER TO [facility] 07-11 MAR: ROCEPHIN IV 5-14 TO 16 CARDIZEM IV 5-14 MAGNESIUM IV 5-15 POTASSIUM 5-15 MORPHINE IV 5-14 LEVOPHED IV 5-14 IVF NS 4 L BOLUS 5-13 TO 5-14 OXYGEN 2L NC THANK YOU, DEBBIE (This form is maintained as a part of the permanent medical record) 2015 [employer] All Rights Reserved Debbie Schafer RN, BS [email or web address] [employer] [facility]
--- NOTE | 2018-07-13 12:11 | PQF ---
DEIDRE EPSTEIN HANNA *r [id number] CLINICAL DOCUMENTATION IMPROVEMENT CLARIFICATION FORM: ICD-10 Updated PLEASE DO AN ADDENDUM TO THE PROGRESS NOTE WITH ANY DOCUMENTATION UPDATES OR ADDITIONS AND CARRY THROUGH TO DC SUMMARY. THANK YOU. DATE: 07-13-18 ATTN: DR. CAMPOS / DR. BELCHER Please exercise your independent, professional judgment in responding to the clarification form. Clinical indicators are provided on the bottom of this form for your review Please check appropriate box(s): [ ] Hypovolemic Shock [ ] Cardiogenic Shock [ ] Septic Shock [ ] Shock Unspecified [ ] Other diagnosis [ x ] Unable to determine In addition, please specify: Present on Admission (POA): [ ] Yes [ x] No [ ] Unable to determine For continuity of documentation, please document condition throughout progress notes and discharge summary. Thank You. CLINICAL INDICATORS - SIGNS / SYMPTOMS / LABS LABS: Hgb Hct 5- 10.0 31.5 5-15 8.8 28.1 5-14 PN (BETH): BP 60/40 - LEVOPHED DRIP - PT ALERT - A&O X 0 AND AGITATED * FOUND TO BE IN A-FIB W/ RVR, HYPOTENSIVE, AND SEPTIC W/ POSSIBLE RETROCARDIAC PNA AND COMPLAINING OF CHEST PAIN 5-14 BP - SBP 57-122 DBP 37-78 5-15 (BETH): NSTEMI 2/2 DEMAND ISCHEMIA RISK FACTORS 5-13 H&P (CHAMPLAIN) : * DEMENTIA * HYPOTENSION * PRE-SYNCOPE W/ COLLAPSE * HYPONATREMIC HYPOVOLEMIA (NA 132) 5-14 PN (BETH): * FOUND TO BE IN A-FIB W/ RVR, HYPOTENSIVE, AND SEPTIC W/ POSSIBLE RETROCARDIAC PNA AND COMPLAINING OF CHEST PAIN. * SEPSIS VS SEPTIC SHOCK, UNKNOWN SOURCE, POSSIBLE RETROCARDIAC CAP TREATMENTS: CPOE: TRANSFER TO [facility] 07-11 MAR: ROCEPHIN IV 5-14 TO -16 CARDIZEM IV 5-14 MAGNESIUM IV 5-15 POTASSIUM 5-15 MORPHINE IV 5-14 LEVOPHED IV 5-14 IVF NS 4 L BOLUS -13 TO 5-14 OXYGEN 2L NC THANK YOU, DEBBIE (This form is maintained as a part of the permanent medical record) 2015 [employer], [employer]. All Rights Reserved Debbie Schafer RN, BS [email or web address]
[2018-07-13] MEDS: traMADol HCl 50 MG TAB PO PRN (12:25)
--- NOTE | 2018-07-13 16:05 | PRG ---
DATE OF SERVICE: 07/13/2018 SERVICE: Pulmonary Medicine. INTERVAL HISTORY: The patient is doing really well from respiratory standpoint. Breathing comfortably. She has no complaints of chest pain, fevers, or chills. Her abdominal discomfort is evaporated. Otherwise, there has been no interval change to her condition. PHYSICAL EXAMINATION: VITAL SIGNS: Afebrile. Pulse 73, blood pressure 178/73, respirations 18, and saturation 100% on room air. GENERAL: The patient is awake and alert, in no apparent distress. LUNGS: Excellent air entry. There is no prolonged expiratory phase. No crackles or rhonchi appreciated. HEART: Normal rate, regular. ABDOMEN: Soft, nontender, and nondistended. Bowel sounds are positive. MUSCULOSKELETAL: No cyanosis or clubbing. No pitting in the bilateral lower extremities. NEUROLOGIC: Grossly nonfocal. LABORATORY DATA: WBC 7.6, hemoglobin 9.5, platelets 308,000. Basic metabolic profile and liver function studies are unremarkable. Phosphorus is minimally reduced, magnesium 1.7. Procalcitonin is negative x2. Urinalysis is minimally positive for leukocyte esterase, there are certainly no bacteria there. Blood cultures x2, urine culture are negative. IMAGING: CT of the abdomen demonstrates no acute intra-abdominal process. There are very small bilateral pleural effusions with adjacent atelectasis without any infiltrating changes. ASSESSMENT: 1. Acute hypoxic respiratory failure, resolved. 2. Atrial fibrillation with RVR, returned to sinus rhythm. 3. Systemic inflammatory response syndrome, resolved. 4. Relative adrenal insufficiency, possible. 5. Abdominal pain, resolved without underlying issue identified. 6. Dementia. DISCUSSION AND PLAN: We can switch her empiric antibiotics over to something by mouth. We can limit her to a 5-day course. Honestly, if we discontinue them altogether, I do not think it would be unreasonable. I will discontinue our stress dose of steroids today and put her back on her daily dose of 5 mg of prednisone for the rheumatoid arthritis. If she has a recurrence in hypotension, we will need to fully investigate her adrenal axis. At this point, she has no further requirements for inpatient Pulmonary Critical Care opinion, and I will sign off. Please call with additional questions or concerns. Job ID: [id number] [facility]
[2018-07-14] MEDS: Polyethylene Glycol 3350 17 GM Packet PO SCH (09:48)
[2018-07-14] MEDS: Docusate 100 MG CAP PO SCH ×2 (09:49→19:50)
[2018-07-14] MEDS: Cefdinir 300 MG CAP PO SCH ×2 (09:49→19:49)
[2018-07-14 09:50] LABS: ALT (SGPT) 21 U/L (8-55); AST (SGOT) 23 U/L (5-34); Albumin 3.9 g/dL (3.4-4.8); Alkaline Phosphatase 47 U/L (40-150); Anion Gap 13 mmol/L (10-20); BUN (Urea Nitrogen) 13 mg/dL (9.8-20.1); Bilirubin, Total 0.4 mg/dL (0.2-1.2); Calc. Creatinine Clearance 48 mL/min (70-130); Calcium 8.6 mg/dL (7.8-10.44); Carbon Dioxide 22 mmol/L (23-31); Chloride 108 mmol/L (98-107); Estimated GFR-MDRD 82; Globulin 2.6 g/dL (2.4-3.5); Glucose 99 mg/dL (83-110); Potassium 3.5 mmol/L (3.5-5.1); Protein, Total 6.5 g/dL (6.0-8.3); Sodium 139 mmol/L (136-145)
[2018-07-14] MEDS: Methotrexate Sodium 2.5 MG TAB PO SCH (09:50)
[2018-07-14] MEDS: Lisinopril 20 MG TAB PO SCH (09:50)
[2018-07-14] MEDS: Metoprolol Tartrate 25 MG TAB PO SCH ×2 (09:52→19:49)
[2018-07-14] MEDS: Atorvastatin Calcium 10 MG TAB PO SCH (09:52)
[2018-07-14] MEDS: predniSONE 5 MG TAB PO SCH (09:52)
[2018-07-14] MEDS: traMADol HCl 50 MG TAB PO PRN (09:53)
[2018-07-14] MEDS: Gabapentin 100 MG CAP PO SCH ×3 (09:53→19:50)
[2018-07-14] MEDS: Enoxaparin Sodium 40 MG/0.4 ML SYRINGE SC SCH (09:53)
--- NOTE | 2018-07-14 10:00 | PDOC.FM ---
- Subjective Subjective: JASMIN overnight. Pt reports she has some epigastric and RUQ pain this am with food. No NV. BM yesterday. - Objective Vital Signs & Weight: Vital Signs (12 hours) Temp Pulse Resp BP BP Pulse Ox 07/14/18 07:54 98.6 F 77 16 168/72 H 99 07/14/18 05:38 96 07/14/18 03:38 97.6 F 76 18 151/68 H 96 07/13/18 23:43 99 F 79 18 139/60 98 Weight Admit Weight 56.699 kg Weight 56.336 kg Most Recent Monitor Data Heart Rate from ECG 94 NIBP 120/63 NIBP BP-Mean 82 Respiration from ECG 17 SpO2 100 I&O: 07/13/18 07/14/18 07/15/18 06:59 06:59 06:59 Intake Total 2045 1082 Output Total 3925 800 Balance -1880 282 Result Diagrams: 07/13/18 05:48 07/14/18 09:07 Phys Exam - Physical Examination Constitutional: NAD HEENT: PERRLA, sclera anicteric Neck: no nodes, no JVD Respiratory: no wheezing, no rales, no rhonchi, clear to auscultation bilateral Cardiovascular: RRR, no significant murmur, no rub Gastrointestinal: soft, no distention Mild RUQ tenderness, mod epigastric tenderness Musculoskeletal: no edema, pulses present Neurological: non-focal, moves all 4 limbs Skin: no rash, cap refill <2 seconds Dx/Plan (1) Acute encephalopathy Code(s): G93.40 - ENCEPHALOPATHY, UNSPECIFIED Status: Resolved (2) Afib Code(s): I48.91 - UNSPECIFIED ATRIAL FIBRILLATION Status: Resolved Qualifiers: Atrial fibrillation type: paroxysmal Qualified Code(s): I48.0 - Paroxysmal atrial fibrillation (3) Atypical pneumonia Code(s): J18.9 - PNEUMONIA, UNSPECIFIED ORGANISM Status: Acute (4) Hypophosphatemia Code(s): E83.39 - OTHER DISORDERS OF PHOSPHORUS METABOLISM Status: Acute (5) Atrial fibrillation with RVR Code(s): I48.91 - UNSPECIFIED ATRIAL FIBRILLATION Status: Resolved (6) Hyponatremia Code(s): E87.1 - HYPO-OSMOLALITY AND HYPONATREMIA Status: Resolved (7) HLD (hyperlipidemia) Code(s): E78.5 - HYPERLIPIDEMIA, UNSPECIFIED Status: Chronic (8) HTN (hypertension) Code(s): I10 - ESSENTIAL (PRIMARY) HYPERTENSION Status: Chronic (9) History of [place] (myocardial infarction) Code(s): I25.2 - OLD MYOCARDIAL INFARCTION Status: Chronic - Plan Plan: #acute encephalopathy, resolved - pt has h/o of mild dementia although pt A&O X3 this am -no hx of trauma - appears at baseline #abdominal pain- -ct abd negative - today reports some RUQ pain, will check LFTs and RUQ US to r/o cholecystitis - consider HIDA #HTN- -home Lisinopril 20mg daily #presyncope- -2/2 afib rvr, spontenously converted to NSR and has remained in sinus - resolved #Afib with RVR -resolved, remains NSR #Sepsis -resolved -prcal .18-->.10 -cont 5 day course of oral abx #NSTEMI 2/2 demand ischemia -no continued pain, trops downtrended #Possible AI -pt currently on oral prednisone 5mg PO daily, per pulm #Hyponatremia, hypovolemic -sodium wnl, resolved #HLD- -continued lovastatin DVT ppx: lovenox GI ppx: protonix CODE: full Dispo: Stable. Will need SNF vs rehab will work up abd pain with RUQ US and repeat LFTs. Consider HIDA. Addendum - Attending - Attending Attestation Date/Time: 07/14/18 1008 I personally evaluated the patient and discussed the management with Dr. Vasquez. I agree with the History, Examination, Assessment and Plan documented above with any addition or exceptions noted below. Mild TTP RUQ. DDx biliary, GERD, SBO, less likely ACS/PE. Workup as above and expand as indicated.
--- NOTE | 2018-07-14 15:56 | ULT ---
ABDOMINAL ULTRASOUND COMPLETE: HISTORY: Right upper quadrant pain. COMPARISON: CT abdomen, 07/12/2018. FINDINGS: Somewhat heterogeneous coarse liver echogenicity. Gallbladder was poorly evaluated because of gas an d body habitus. Right lobe of liver cyst adjacent to the gallbladder. Common bile duct 0.7 cm. Vis ualized pancreas, IVC, aorta, and spleen are unremarkable. A 4.1 x 4.3 cm left renal cyst. No renal hydronephrosis. No abscess or abnormal fluid collection. IMPRESSION: Somewhat limited examination because of body habitus. Small liver cyst. Left renal cyst. No overt gallstones, although the gallbladder was less than optimally imaged. Somewhat coarse liver echogenic ity. No common duct dilatation. POS: C
--- NOTE | 2018-07-15 05:49 | PDOC.FM ---
- Subjective Subjective: Pt has no complaints this morning. She did have all the covers off the bed and state she wanted a clean bed for when she runs out of here. - Objective MAR Reviewed: Yes Vital Signs & Weight: Vital Signs (12 hours) Temp Pulse Resp BP Pulse Ox 07/15/18 04:00 97.5 F L 86 16 134/73 98 07/15/18 02:06 98 07/14/18 23:53 97.4 F L 70 16 153/69 H 99 07/14/18 20:02 97.5 F L 76 16 130/65 97 Weight Admit Weight 56.699 kg Weight 56.245 kg Most Recent Monitor Data Heart Rate from ECG 94 NIBP 120/63 NIBP BP-Mean 82 Respiration from ECG 17 SpO2 100 I&O: 07/13/18 07/14/18 07/15/18 06:59 06:59 06:59 Intake Total 2045 1082 470 Output Total 3925 800 Balance -1880 282 470 Result Diagrams: 07/13/18 05:48 07/14/18 09:07 Phys Exam - Physical Examination Constitutional: NAD HEENT: moist MMs Neck: no JVD Respiratory: no wheezing, clear to auscultation bilateral Cardiovascular: RRR, no significant murmur Gastrointestinal: soft, non-tender, no distention, positive bowel sounds Musculoskeletal: pulses present Neurological: moves all 4 limbs Deviation from normal: AAO to person and place Skin: cap refill <2 seconds Dx/Plan (1) Abdominal pain Code(s): R10.9 - UNSPECIFIED ABDOMINAL PAIN Status: Acute Qualifiers: Abdominal location: left upper quadrant Qualified Code(s): R10.12 - Left upper quadrant pain (2) Atrial fibrillation with RVR Code(s): I48.91 - UNSPECIFIED ATRIAL FIBRILLATION Status: Resolved (3) Dementia Code(s): F03.90 - UNSPECIFIED DEMENTIA WITHOUT BEHAVIORAL DISTURBANCE Status: Chronic (4) HLD (hyperlipidemia) Code(s): E78.5 - HYPERLIPIDEMIA, UNSPECIFIED Status: Chronic (5) HTN (hypertension) Code(s): I10 - ESSENTIAL (PRIMARY) HYPERTENSION Status: Chronic - Plan Plan: This is an 83 yo female with a pmh of HTN, HLD, afib, previous AZ, dementia Acute encephalopathy, resolved -AAOx2, appears at baseline Abdominal pain -CT abdomen negative -RUQ US negative for gallstones or CBD dilation HTN -Continue home meds Presyncope, resolved -2/2 afib RVR, spontaneously converted to NSR Afib RVR, resolved -NSR Sepsis, resolved -Continue oral abx NSTEMI type 2 -No continued pain, down trending troponins Posible AI -Continue oral prednisone 5mg per pulm Hyponatremia, hypovolemic, resolved HLD -Continue lovastatin Plan to discharge to group home today Addendum - Attending - Attending Attestation Date/Time: 07/15/18 2550 I personally evaluated the patient and discussed the management with Dr. Moffett I agree with the History, Examination, Assessment and Plan documented above with any addition or exceptions noted below.Patient stable and anticopating d/c today.
[2018-07-15] MEDS: Cefdinir 300 MG CAP PO SCH (10:17)
[2018-07-15] MEDS: Docusate 100 MG CAP PO SCH (10:17)
[2018-07-15] MEDS: Gabapentin 100 MG CAP PO SCH (10:17)
[2018-07-15] MEDS: predniSONE 5 MG TAB PO SCH (10:18)
[2018-07-15] MEDS: Metoprolol Tartrate 25 MG TAB PO SCH (10:18)
[2018-07-15] MEDS: Enoxaparin Sodium 40 MG/0.4 ML SYRINGE SC SCH (10:18)
[2018-07-15] MEDS: Lisinopril 20 MG TAB PO SCH (10:18)
[2018-07-15] MEDS: Atorvastatin Calcium 10 MG TAB PO SCH (10:18)
[2018-07-15] MEDS: Polyethylene Glycol 3350 17 GM Packet PO SCH (10:19)
[2018-07-15] MEDS: Methotrexate Sodium 2.5 MG TAB PO SCH (10:22)
[2018-07-15 11:33] VITALS: BP 126/63; TEMP 97.8
--- NOTE | 2018-07-15 16:05 | EKG ---
Test Reason : SYNCOPE Blood Pressure : / mmHG Vent. Rate : 108 BPM Atrial Rate : 108 BPM P-R Int : 148 ms QRS Dur : 078 ms QT Int : 362 ms P-R-T Axes : 046 -21 026 degrees QTc Int : 485 ms Sinus tachycardia with Premature atrial complexes Possible Left atrial enlargement Borderline ECG Confirmed by URIEL CARPIO ([id number]), desk editor PETERSON LEA ([id number]) on 07/15/2018 4:04:56 PM Referred By: GILBERTO BAUER Confirmed By:URIEL CARPIO
--- NOTE | 2018-07-17 12:53 | DIS ---
DATE OF ADMISSION: 07/10/2018 DATE OF DISCHARGE: 07/15/2018 ADMITTING ATTENDING: Dr. Lora Horn. DISCHARGING ATTENDING: Dr. Kodi Dumont. RESIDENT: Art Moffett DO CONSULTATIONS: 1. Dr. Erin Lynn, Cardiology. 2. Dr. Delbert Do, Pulmonology. PROCEDURES: 1. Abdominal ultrasound somewhat of limited exam due to body habitus, small liver cyst, left renal cyst. No overt gallstones, although gallbladder was less than optimally imaged. Somewhat coarse liver echogenicity. No common ductal dilatation. 2. Single view abdomen showing unremarkable exam. 3. CT abdomen with contrast showing small bilateral pleural effusions with bibasilar atelectasis, no evidence of acute abnormalities within the abdomen, stable renal cyst, hepatic cyst, stable compression abnormality of L1. 4. Chest x-ray showing no radiographic evidence of acute cardiopulmonary process. Chest x-ray showing interval placement of right internal jugular central venous line with tip in the projection of the cavoatrial junction. No pneumothorax is seen. There is continued elevation of the left hemidiaphragm with adjacent mild atelectatic change. PRIMARY DIAGNOSES: 1. Acute encephalopathy. 2. History of mild dementia. 3. Hypophosphatemia, resolved. 4. Abdominal pain likely due to constipation. 5. Presyncope, resolved, most probably secondary to atrial fibrillation with rapid ventricular response that spontaneously resolved, spontaneously converted to normal sinus rhythm on admission. 6. Sepsis . SECONDARY DIAGNOSES: Hyperlipidemia, hypertension, atrial fibrillation, gastroesophageal reflux disease, dementia. DISCHARGE MEDICATIONS: 1. Omnicef 300 mg p.o. b.i.d. for 5 days. 2. Metoprolol 25 mg p.o. b.i.d. 3. Pantoprazole 40 mg p.o. daily. 4. Tylenol 650 mg p.o. q.4 hours p.r.n. for fever. 5. Lisinopril 20 mg p.o. daily. 6. Lovastatin 40 mg p.o. daily. 7. Methotrexate 10 mg p.o. . 8. Prednisone 10 mg p.o. q.a.m. DISCONTINUED MEDICATIONS: None. BRIEF HISTORY OF PRESENT ILLNESS/HOSPITAL COURSE: This is an 83-year-old female, admitted for evaluation of back pain and constipation. Family and patient are historians. Recently seen by PCP and noted to have sciatica. Patient has pain in the lower back that radiates down to the leg, sharp and stabbing with occasional burning. Next, the patient and family reports syncopal episodes where she passed out. Syncope occurred at home. The patient reported she got out of the car, closed the door, and then dropped to the ground. The patient is conscious at this time. Family was able to get her stand up again where she became and dropped to the ground. Family notes that over the last few days, the patient reports burning in her chest. Recently the family notes decreased appetite and reports that previous syncopal spells were due to dehydration. Sepsis is likely due to community-acquired pneumonia. The patient was admitted to the hospital, initially deemed septic as well as atrial fibrillation with RVR. Admission vital signs include blood pressure 150/84, heart rate 109, respirations 15, T-max 98.8, pulse ox 98%. Pertinent labs include white count of 16.4, hemoglobin of 10.1, hematocrit of 31.8, creatinine 1.12, BUN 22, . The patient was admitted and started on IV fluids pain is due to aspiration pneumonia however, imaging as above and physical exam suggested etiology more similar to versus constipation. The patient continued to improve with fluids for 5 days until time of discharge. The patient is discharged to return to [facility] as family members unable to take care of her. DISPOSITION: Stable. DISCHARGE INSTRUCTIONS: 1. Location: [facility]. 2. Diet: Heart healthy. 3. Activity: As tolerated. 4. Follow up with Dr. Duffy in 1 to 2 weeks. Job ID: [id number]
== END 2018-07-15 15:26 | disposition home or self-care (01) | DRG 871 ==
LOC: ERS 14:47 → OBSVTOIN 18:05 → ERHOLD 18:05 → IMCU/EMU 07-11 01:36 → CCU 07-11 14:33 → 2SE 07-12 19:02
PROVIDERS: ADMIT Student in an Organized Health Care Education/Training Program; ATTEND Student in an Organized Health Care Education/Training Program
PROC: 02HV33Z Insertion of Infusion Device into Superior Vena Cava, Percutaneous Approach (ICD-10-PCS; principal; 2018-07-11)
PROC: B548ZZA Ultrasonography of Superior Vena Cava, Guidance (ICD-10-PCS; 2018-07-11)
DX: A41.9 Sepsis, unspecified organism (principal); J18.9 Pneumonia, unspecified organism; I21.A1 Myocardial infarction type 2; J96.01 Acute respiratory failure with hypoxia; E87.1 Hypo-osmolality and hyponatremia; N39.0 Urinary tract infection, site not specified; N17.9 Acute kidney failure, unspecified; E27.40 Unspecified adrenocortical insufficiency; M54.9 Dorsalgia, unspecified; K59.00 Constipation, unspecified; F03.90 Unspecified dementia, unspecified severity, without behavioral disturbance, psychotic disturbance, mood disturbance, and anxiety; K21.9 Gastro-esophageal reflux disease without esophagitis; E78.5 Hyperlipidemia, unspecified; I10 Essential (primary) hypertension; E86.0 Dehydration; G89.29 Other chronic pain; E83.39 Other disorders of phosphorus metabolism; I48.0 Paroxysmal atrial fibrillation; Z79.52 Long term (current) use of systemic steroids; Z88.8 Allergy status to other drugs, medicaments and biological substances; Z88.4 Allergy status to anesthetic agent; Z79.899 Other long term (current) drug therapy; I25.2 Old myocardial infarction
CPT/HCPCS: 36415; 71045; 74018; 74160; 76700; 80053; 81003; 81015; 82553; 82728; 83540; 83550; 83605; 83735; 84100; 84145; 84443; 84484; 85025; 87040; 87086; 93005; 93010; 93306; 94760; 96360; 96361; J0360; J0696; J1630; J1650; J1720; J2270; J3475; J3490; J7050; J7512; J8610; Q9966; S0028

== ENCOUNTER 2018-07-27 10:09 | Outpatient (CLI) | payer MEDICARE, MEDICAID ==
--- NOTE | 2018-07-27 13:57 | MRI ---
Exam: MRI THORACIC SPINE WITHOUT CONTRAST: HISTORY: Thoracic back pain. Upper back pain times a few months. COMPARISON: None. FINDINGS: Appropriate T1 marrow signal intensity of the thoracic vertebra. Vertebral body height is maintained . No fracture. There are Schmorl's nodes along multiple endplates. No evidence of STIR hyperintensity to suggest vertebral body edema or ligamentous injury. Remote mild compression fractur e at L1 without significant retropulsion. Visualized mediastinum, lung parenchyma are unremarkable. Redemonstration of a left and right renal c ortical cyst. The thoracic cord has a normal size and signal intensity. No cord malacia. No cord expansion. No T2 h yperintensity in the cord. Conus medullaris terminates at the upper aspect of L2, based upon the sagittal images Throughout the thoracic spine, there is no significant central canal stenosis or significant neural f oraminal narrowing. Based on the sagittal images, minimal generalized disc bulges at T7-T8, T8-T9, T9-T10 and T10-T11. IMPRESSION: No significant central canal stenosis or neural foraminal narrowing. Transcribed Date/Time: 07/27/2018 2:27 PM
== END 2018-07-27 10:10 | disposition home or self-care (01) ==
LOC: TBSIIMAG 10:09
PROVIDERS: ATTEND Neurological Surgery
DX: M54.14 Radiculopathy, thoracic region (principal)
CPT/HCPCS: 72146

== ENCOUNTER 2018-10-28 12:03 | Inpatient (IN) | payer MEDICARE, MEDICAID ==
--- NOTE | 2018-10-28 13:57 | PDOC.FPRHP ---
- History of Present Illness Chief Complaint: vertigo and hypertensive urgency History of Present Illness: Ms. Mcdaniel is an 83yoF who presents as a transfer from [facility]. She presented to the ED in [place] for symptoms of headache, dizziness and nausea. Reported that her blood pressure at home was >190 systolic, despite taking her home medications. She states that the dizziness has been going on since yesterday at 1500, and it is worse when she stands up quickly. She was walking next door to her sister's house and felt very light headed. She denies any change in oral intake. Denies syncope, chest pain, or shortness of breath. She complains of weakness, however she feels that it is due to hunger. (After reevaluating the patient at a later time, her weakness had resolved with a meal. ) ED Course: txfr from outside ER: plavix, clonidine, 1L NS, zofran, meclizine - Allergies/Adverse Reactions Allergies Allergy/AdvReac Type Severity Reaction Status Date / Time aspirin Allergy Verified 07/11/18 01:42 lidocaine Allergy Verified 07/11/18 01:42 - Home Medications Medication Instructions Recorded Confirmed Type Lovastatin 40 mg PO QAM-WM 01/24/16 10/28/18 History Acetaminophen [Tylenol Regular 650 mg PO Q4H PRN tab 04/30/18 07/11/18 Rx Strength] Lisinopril [Zestril] 20 mg PO DAILY #30 tab 04/30/18 10/28/18 Rx predniSONE 10 mg PO QAM-WM tab 04/30/18 07/11/18 Rx Cefdinir [Omnicef] 300 mg PO BID #10 cap 07/14/18 Rx Methotrexate Sodium 4 tab PO ASDIR 07/14/18 07/14/18 History Metoprolol Tartrate [Lopressor] 25 mg PO BID #30 tab 07/14/18 Rx Pantoprazole [Protonix] 40 mg PO DAILY #30 tab 07/14/18 Rx - History PMHx: HTN Atrial fibrillation Rheumatoid arthritis [place] in 1990 HLD GERD Chronic back pain PSHx: Tubal ligation Shoulder replacement FHx: Family history of heart disease throughout. Social: 20 pack year history, former smoker No EtOH or Illicit drug use - Review of Systems General: denies: fever/chills, weight/appetite/sleep changes, night sweats Eyes: denies: eye pain, vision changes ENT: denies: nasal congestion, rhinorrhea Respiratory: denies: cough, congestion, shortness of breath Cardiovascular: reports: edema (trace). denies: chest pain, palpitation, paroxysmal nocturnal dyspnea, orthopnea Gastrointestinal: reports: nausea. denies: vomiting, diarrhea, constipation, abdominal pain Genitourinary: denies: incontinence, dysuria Skin: denies: rashes, lesions Musculoskeletal: denies: pain, tenderness Neurological: denies: numbness, syncope, weakness Psychological: denies: anxiety, depression - Vital signs BP: 130/58, Pulse: 71, Resp: 18, Temp: 97.5 (Oral), Pain: 0, Time: 10/28/2018 12: 17 Weight: 58kg. - Physical Exam Constitutional: NAD, awake, alert and oriented, well developed HEENT: normocephalic and atraumatic, PERRLA, EOMI, conjunctiva clear, no scleral icterus, grossly normal vision, grossly normal hearing, MMM Neck: supple, FROM, no bruits Chest: no-tender to palpation, no lesions Heart: RRR, normal S1/S2, no murmurs/rubs/gallops, pulses present, no edema Lungs: CTAB, no respiratory distress, good air movement, no rales/rhonchi, no wheezing, no retractions Abdomen: soft, non-tender, bowel sounds present Musculoskeletal: normal structure, normal tone Neurological: no focal deficit, CN II-XII intact, normal sensation -Neurological: 5/5 Strength bilaterally in upper and lower extremities. Skin: no rash/lesions, good turgor Heme/Lymphatic: no unusual bruising or bleeding, no purpura Psychiatric: normal mood and affect, good judgment and insight, intact recent and remote memory FMR H&P: Results - Labs Lab results: Laboratory Tests 10/28/18 10/28/18 10/28/18 09:45 09:45 09:45 WBC 11.2 H Hgb 10.4 L Hct 35.7 L Plt Count 192 Sodium 140 Potassium 3.8 Chloride 107 Carbon Dioxide 21 L Creatinine 0.81 CK-MB (CK-2) 0.4 Troponin I 0.033 H 10/28/18 14:27 WBC Hgb Hct Plt Count Sodium Potassium Chloride Carbon Dioxide Creatinine CK-MB (CK-2) Troponin I 0.017 - EKG Interpretation EKG: From [place] "mild scooping ST segment in V5 V6 that is present on prior EKG. Nonspecific T wave change in V3. Otherwise normal. No STEMI" - Radiology Interpretation CT scan - head Status: report reviewed by me (No acute process) FMR H&P: A/P - Plan Hypertensive urgency, Symptomatic - severe htn episodes, reported headache and dizziness - headache has since resolved - CT head negative - Allergic to aspirin, was given plavix in ED. - Will admit to stroke obs and monitor blood pressures overnight. Hx of afib - EKG on admission shows sinus rhythm - Currently not on anticoagulation. 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 - Will monitor on Telemetry for signs of arrhythmia. Elevated troponin - likely NSTEMI II demand ischemia - downtrended, no reported chest pain, shortness of breath or diaphoresis. - history of [place] in 1990. Rheumatoid arthritis - continue home medications. Dispo: Stable, observation status Code: Full Diet: Heart healthy FMR H&P: Upper Level - Pertinent history Ms. Mcdaniel presents to outside ED with 2 day hx of dizziness, nausea, and headache. She had elevated BPs in an outside ER with some nystagmus, remainder neuro exam wnl. On our exam she reports her headache and dizziness have improved, she is hungry at this time. Family present and report pt is at baseline. She denies syncope, chest pain, SOB, palpitations, fever, or pain. - Pertinent findings General: NAD HEENT: NCAT Chest: even inspiratory and expiratory effort, no retractions Abdomen: non distended, NTTP MSK: no weakness, or loss of ROM noted Extremities: non-edematous, pulses present Neuro: grossly intact, no focal deficits See international affairs vice president portion for full ROS, PE, labs and vitals. - Plan Date/Time: 10/28/18 1357 IJay DO, have evaluated this patient and agree with findings/plan as outlined by international affairs vice president resident. Pertinent changes/additions are listed here. Symptomatic hypertensive urgency - severe htn episodes, reported headache and dizziness, resolved on exam - CT head neg - asa allergy, continue Plavix and statin Hx of afib - sinus rhythm on admission, monitor - not on anti-coag currently Elevated troponin - likely NSTEMI II demand ischemia - downtrended, no reported chest pain Dispo: observe on stroke, likely DC tomorrow
[2018-10-28 14:54] LABS: Troponin I 0.017 ng/mL (< 0.028)
[2018-10-28] MEDS ORDERED: Senokot S 8.6-50 MG TAB PO PRN (15:15)
[2018-10-28] MEDS ORDERED: Acetaminophen 325 MG TAB PO PRN (15:15)
[2018-10-28] MEDS ORDERED: Calcium Carbonate 500 MG ChewTAB PO PRN (15:15)
[2018-10-28] MEDS ORDERED: Ondansetron ODT 4 MG TAB PO PRN (15:15)
[2018-10-28 21:07] VITALS: BMI 22.8
[2018-10-28] MEDS: Atorvastatin Calcium 10 MG TAB PO SCH (21:13)
[2018-10-29 04:55] LABS: Cardiac Risk 2.6 (Less than 4.5)
--- NOTE | 2018-10-29 05:07 | PDOC.FM ---
- Subjective Subjective: Denies any dizziness or nausea this morning. She states that she started taking iron pills 3 weeks ago and that seems to bother her stomach. She reports no issues overnight otherwise. - Objective MAR Reviewed: Yes Vital Signs & Weight: Vital Signs (12 hours) Temp Pulse Resp BP Pulse Ox 10/29/18 04:30 99.6 F 55 L 18 138/58 L 97 10/28/18 23:20 98.0 F 55 L 16 117/59 L 99 10/28/18 19:43 97.6 F 54 L 16 116/72 93 L 10/28/18 18:32 97.6 F 55 L 12 148/62 H 98 Weight Weight 54.839 kg Phys Exam - Physical Examination Constitutional: NAD HEENT: moist MMs Respiratory: no wheezing, clear to auscultation bilateral Cardiovascular: RRR, no significant murmur Gastrointestinal: soft, non-tender, no distention, positive bowel sounds Musculoskeletal: no edema, pulses present Neurological: normal sensation, moves all 4 limbs Psychiatric: A&O x 3 Skin: cap refill <2 seconds Dx/Plan (1) Hypertensive urgency Code(s): I16.0 - HYPERTENSIVE URGENCY Status: Acute (2) GERD (gastroesophageal reflux disease) Code(s): K21.9 - GASTRO-ESOPHAGEAL REFLUX DISEASE WITHOUT ESOPHAGITIS Status: Chronic (3) HLD (hyperlipidemia) Code(s): E78.5 - HYPERLIPIDEMIA, UNSPECIFIED Status: Chronic (4) History of IL (myocardial infarction) Code(s): I25.2 - OLD MYOCARDIAL INFARCTION Status: Chronic - Plan Plan: This is an 83 yo female with a pmh of HTN, CAD, Afib, RA Hypertensive urgency, resolved -No urgent pressures overnight, no PRN meds required -Will monitor today and likely discharge if normal -Pt to follow up with PCP Hx of afib -NSR on admission, will monitor on tele bed Elevated Troponin, trending down -Likely NSTEMI type II -Pt give plavix in ER -Asymptomatic this AM RA -Continue home meds Iron deficiency anemia -Taking iron supplements, may be worth iron transfusions as this has been bothering her stomach
[2018-10-29 05:58] LABS: Bacteria/HPF 1+ HPF (None Seen); Bilirubin Negative (Negative); Blood, Urine Negative (Negative); Clarity Clear (Clear); Glucose, Urine (Dipstick) Normal (Negative); Leukocyte 500 Leu/uL (Negative); Nitrite Negative (Negative); Protein, Urine (Dipstick) Negative (Neg-Trace); RBC/HPF 0-3 HPF (0-3); Urobilinogen Normal mg/dL (Less than 2); WBC/HPF 21-50 HPF (0-3)
[2018-10-29] MEDS: predniSONE 20 MG TAB PO SCH (08:47)
[2018-10-29] MEDS: Metoprolol Tartrate 25 MG TAB PO SCH ×2 (08:48→21:40)
[2018-10-29] MEDS: Lisinopril 20 MG TAB PO SCH (08:49)
[2018-10-29] MEDS: Gabapentin 300 MG CAP PO SCH ×3 (08:49→21:40)
[2018-10-29] MEDS: Clopidogrel Bisulfate 75 MG TAB PO SCH (08:49)
[2018-10-29] MEDS: Enoxaparin Sodium 40 MG/0.4 ML SYRINGE SC SCH (08:50)
--- NOTE | 2018-10-29 10:29 | HP ---
HISTORY OF PRESENT ILLNESS: I have examined the patient. I have discussed the case with Dr. Beverly Anderson and agree with her assessment and plan. Ms. Mcdaniel is a pleasant 83-year-old black female, who was a transfer from the [place] [facility]. She had presented there for symptoms of headache, dizziness, and nausea. She was also noted to be quite hypertensive and was transferred to our facility for higher level of care. PHYSICAL EXAMINATION: VITAL SIGNS: Her blood pressure on our initial exam, after she had been treated at [place] [facility] was a blood pressure of 130/58, pulse rate 71, respirations 18. She is afebrile. GENERAL: She is awake, alert, in no distress. No signs of encephalopathy. No signs of any focal neurological deficits. EARS, NOSE, AND THROAT: No erythema. No exudate. Extraocular movements appear normal. No visual changes. CARDIAC: Heart rhythm is regular. No gallop or murmur noted. LUNGS: Clear without rales or wheezes. ABDOMEN: Flat and soft without guarding, rebound, or rigidity. NEUROLOGIC: No focal deficits noted. LABORATORY DATA: Her chemistries show that her troponins are negative. Triglycerides are normal. Urinalysis does show positive leukocyte esterase and 21 to 50 white cells per high-power field along with 1+ bacteria. ASSESSMENT: Hypertensive urgency, history of atrial fibrillation, nondiagnostic elevated troponin secondary to demand ischemia. PLAN: The patient will be admitted. We will continue aggressive therapy for her blood pressure, which has already much improved. We will likely discharge later today. Job ID: [id number]
[2018-10-29] MEDS: Atorvastatin Calcium 10 MG TAB PO SCH (21:40)
--- NOTE | 2018-10-30 06:46 | PDOC.FM ---
- Subjective Subjective: pt sitting up at bedside, tolerating PO. denies headache or chest pain - Objective Vital Signs & Weight: Vital Signs (12 hours) Temp Pulse Resp BP Pulse Ox 10/30/18 04:00 97.7 F 57 L 16 143/63 H 96 10/30/18 00:12 98.1 F 56 L 16 142/73 H 95 10/29/18 19:00 98.6 F 60 16 152/71 H 98 Weight Weight 54.839 kg I&O: 10/28/18 10/29/18 10/30/18 06:59 06:59 06:59 Intake Total 350 980 Output Total 400 900 Balance -50 80 Phys Exam - Physical Examination Constitutional: NAD HEENT: moist MMs Neck: full ROM Gastrointestinal: no distention Musculoskeletal: no edema Neurological: moves all 4 limbs Psychiatric: normal affect Skin: no rash Dx/Plan (1) Hypertensive urgency Code(s): I16.0 - HYPERTENSIVE URGENCY Status: Acute (2) GERD (gastroesophageal reflux disease) Code(s): K21.9 - GASTRO-ESOPHAGEAL REFLUX DISEASE WITHOUT ESOPHAGITIS Status: Chronic (3) HLD (hyperlipidemia) Code(s): E78.5 - HYPERLIPIDEMIA, UNSPECIFIED Status: Chronic (4) Afib Code(s): I48.91 - UNSPECIFIED ATRIAL FIBRILLATION Status: Resolved Qualifiers: Atrial fibrillation type: paroxysmal Qualified Code(s): I48.0 - Paroxysmal atrial fibrillation - Plan Plan: Hypertensive urgency, resolved -No urgent pressures overnight, no PRN meds required -Will monitor today and likely discharge if normal - consider adding HCTZ for better control -Pt to follow up with PCP Hx of afib -NSR overnight Elevated Troponin, trending down -Likely NSTEMI type II -Pt give plavix in ER -Asymptomatic this AM RA -Continue home meds Iron deficiency anemia -continue taking iron supplements dispo: DC today with normal BPs Addendum - Attending - Attending Attestation Date/Time: 10/30/18 0742 I personally evaluated the patient and discussed the management with Dr. Jaimes. I agree with the History, Examination, Assessment and Plan documented above with any addition or exceptions noted below. Patient here for dizziness, nausea in the setting of abnormal blood pressures. Those have been improved. Trops have been downtrending. Will monitor symptoms and BP through today but anticipate she may be stable for discharge later today.
[2018-10-30] MEDS: predniSONE 20 MG TAB PO SCH (08:22)
[2018-10-30] MEDS: Lisinopril 20 MG TAB PO SCH (08:23)
[2018-10-30] MEDS: Metoprolol Tartrate 25 MG TAB PO SCH (08:23)
[2018-10-30] MEDS: Clopidogrel Bisulfate 75 MG TAB PO SCH (08:23)
[2018-10-30] MEDS: Gabapentin 300 MG CAP PO SCH (08:24)
[2018-10-30] MEDS: Enoxaparin Sodium 40 MG/0.4 ML SYRINGE SC SCH (08:24)
[2018-10-30 11:37] VITALS: BP 133/67; TEMP 97.4
--- NOTE | 2018-11-01 05:48 | DIS ---
DATE OF ADMISSION: 10/28/2018 DATE OF DISCHARGE: 10/30/2018 CONSULTS: None. IMAGING: At an outside ER, brain CT showed chronic ischemic changes. No new acute intracranial abnormalities. PROCEDURES: None. DISCHARGE MEDICATIONS: 1. Lovastatin 40 mg p.o. q.a.m. 2. Methotrexate 4 tab p.o. as directed. 3. Lopressor 25 mg p.o. b.i.d. 4. Protonix 40 mg p.o. daily. 5. Lisinopril 40 mg p.o. daily. 6. Gabapentin 300 mg p.o. t.i.d. 7. Prednisone 5 mg p.o. q.a.m. PRIMARY DIAGNOSIS: Hypertensive urgency, resolved. SECONDARY DIAGNOSES: 1. History of atrial fibrillation. 2. Elevated troponin. 3. Rheumatoid arthritis. 4. Iron deficiency anemia. HISTORY OF PRESENT ILLNESS/HOSPITAL COURSE: Ms. Mcdaniel is an 83-year-old female, who presents as a transfer from the [place] [facility] for hypertensive urgency. Blood pressures over there were reported as greater than 190 systolic, after taking her home medications, dizziness since the day prior, worsening if she stands up quickly, reported a generalized weakness. Clonidine was given in the outside ER and a liter of normal saline. Upon arrival to [facility] ER, the patient had a blood pressure of 130/58, deemed stable for monitoring on stroke diagnosis, hypertensive urgency though symptomatic. CT head was negative. Plavix was given in the outside ER. The patient was continued to be evaluated. Blood pressure was treated. The patient was able to tolerate p.o. well and did not have any further severe range blood pressures. Vital signs remained stable. The patient was deemed stable for discharge home with close followup. DISCHARGE INSTRUCTIONS: 1. Location: Home. 2. Diet: Heart healthy, low-sodium. 3. Activity: As tolerated. FOLLOWUP: Follow up with PCP in the next 3 to 7 days. Job ID: [id number]
--- NOTE | 2018-11-01 06:44 | PQF ---
DEIDRE EPSTEIN IRVIN [id number] [facility] [place] [place][note 2] [id number] CLINICAL DOCUMENTATION CLARIFICATION FORM: POST DISCHARGE Addendum to original discharge summary date: ____ Late entry note date: __ DATE: 11-01-2018 ATTN:Natanael Vela Please exercise your independent, professional judgment in responding to the clarification form. Clinical indicators are provided on the bottom of this form for your review Please exercise your independent, professional judgment in responding to the clarification form. Clinical indicators are provided on the bottom of this form for your review Can you please specify whether Type 2 Myocardial Infarction is ruled in or ruled out during this encounter? Type 2 Myocardial Infarction [ ] Ruled in diagnosis [ ] Continue to treat [ ] Resolved [ ] Ruled out diagnosis [ ] Cannot rule out diagnosis [ ] Other diagnosis please specify: [ ] Unable to determine For continuity of documentation, please document condition throughout progress notes and discharge summary. Thank You. CLINICAL INDICATORS: ED 10/28 pg 6 Primary: elevated Troponin. Additional: hypertensive HP 10/[address] Anderson Chief complaint: vertigo and hypertensive urgency HP 10/[address] Anderson Elevated Troponin likely NSTEMI II demand Ischemia HP 10/[address] Suarez non diagnostic elevated troponin secondary to demand ischemia Laboratory : troponin 0.017 (10/28) RISK FACTOR: HP 10/28 Dr. Anderson [place] (1990) HP 10/28 Dr. Anderson- Hypertensive Urgency HP 10/28 Dr. Anderson- Afib HP 10/28 Dr. Anderson- Former Smoker TREATMENTS: MAY 05 Clopidogrel 75 mg PO daily MAY 05 IV fluids (This form is maintained as a part of the permanent medical record) 2014 [employer]. All Rights Reserved Luann [email or web address] [not provided] MTDD
[2018-11-03] MEDS ORDERED: Methotrexate Sodium 2.5 MG TAB PO SCH (09:00)
== END 2018-10-30 12:58 | disposition home or self-care (01) | DRG 305 ==
LOC: ERS 12:03 → ERHOLD 13:35 → 2SE 19:05
PROVIDERS: ADMIT Family Medicine; ATTEND Family Medicine
DX: I16.0 Hypertensive urgency (principal); I10 Essential (primary) hypertension; I48.91 Unspecified atrial fibrillation; F03.90 Unspecified dementia, unspecified severity, without behavioral disturbance, psychotic disturbance, mood disturbance, and anxiety; E78.5 Hyperlipidemia, unspecified; K21.9 Gastro-esophageal reflux disease without esophagitis; G89.29 Other chronic pain; M54.9 Dorsalgia, unspecified; D50.9 Iron deficiency anemia, unspecified; Z88.8 Allergy status to other drugs, medicaments and biological substances; I25.2 Old myocardial infarction; Z98.51 Tubal ligation status; Z87.891 Personal history of nicotine dependence; M06.9 Rheumatoid arthritis, unspecified
CPT/HCPCS: 36415; 80061; 81001; 94760; 99285; J1650; J7512

== ENCOUNTER 2019-10-17 21:49 | Observation (INO) | payer MEDICARE, MEDICAID ==
[2019-10-17] MEDS ORDERED: hydrALAZINE 20 MG/ML VIAL ONE (22:04)
[2019-10-17] MEDS ORDERED: Clopidogrel Bisulfate 75 MG TAB PO SCH (23:15)
--- NOTE | 2019-10-17 23:58 | PDOC.FPRHP ---
- History of Present Illness Chief Complaint: back pain History of Present Illness: Chaya Mcdaniel is a 84 yo F with a history of HTN, Afib, HLD, and chronic back pain who transferred from [place] [facility] with chief complaint of back pain radiating to her back. She was recently discharged on 10/14 after an admission for indeterminate troponins. At [place] ED patient was found to have elevated troponin of 0.077 and a SBP 240. Patient received nitro, metoprolol, and fentanyl prior to transfer. She denied chest pain or shortness of breath. In [place] ED repeat trop was 0.15 and SBP was 220 and she received plavix, and hydralazine, improving SBP to 160s. EKG showed no signs of ischemia. Patient is a poor historian and difficult to obtain a history from. She explains she began having epigastric pain that "aparicio through to her back" the day prior to presentation. - Allergies/Adverse Reactions Allergies Allergy/AdvReac Type Severity Reaction Status Date / Time aspirin Allergy Verified 10/18/19 01:36 lidocaine Allergy Verified 10/18/19 01:36 morphine Allergy Verified 10/18/19 01:36 - Home Medications Medication Instructions Recorded Confirmed Type Lovastatin 40 mg PO QAM-WM 01/24/16 10/18/19 History Methotrexate Sodium 4 tab PO ASDIR 07/14/18 10/18/19 History Metoprolol Tartrate [Lopressor] 25 mg PO BID #30 tab 07/14/18 10/18/19 Rx Pantoprazole [Protonix] 40 mg PO DAILY #30 tab 07/14/18 10/18/19 Rx Lisinopril [Zestril] 40 mg PO DAILY 10/28/18 10/18/19 History predniSONE 5 mg PO QAM-WM 10/28/18 10/18/19 History Acetaminophen [Tylenol Regular 650 mg PO Q6H PRN tab 10/15/19 10/18/19 Rx Strength] Methocarbamol [Robaxin] 500 mg PO HS #30 tab 10/15/19 10/18/19 Rx - History PMHx: HTN, Afib, chronic back pain, HLD, GERD Social: daughter helps her take her medicine - Review of Systems General: denies: fever/chills Respiratory: denies: cough, congestion, shortness of breath Cardiovascular: denies: chest pain Gastrointestinal: reports: abdominal pain. denies: nausea, vomiting, diarrhea Musculoskeletal: reports: pain - Vital signs BP: 178/70 HR: 102 RR: 18 Pox: 98% on RA Wt: 58kg - Physical Exam Constitutional: NAD, awake, alert and oriented HEENT: normocephalic and atraumatic, EOMI, no scleral icterus, grossly normal vision, grossly normal hearing Neck: FROM Heart: RRR, other (systolic flow murmur) Lungs: CTAB, no respiratory distress, no wheezing Abdomen: soft, non-tender Musculoskeletal: ROM grossly normal Psychiatric: other (seemingly poor short term memory) FMR H&P: Results - Labs Lab results: troponins 0.077--> 0.15 --> 0.182 - EKG Interpretation EKG: No signs of ischemia FMR H&P: A/P - Plan 84 yo F with a history of HTN, Afib, HLD, and chronic back pain complaining of back pain radiating to her back HTN emergency, resolved SBPs 240 --> 160s Currently has on nitro paste Continue hydralazine prn Restart home medications Given description of abdominal pain radiating to back, we ordered a CTA chest which revealed no evidence of aortic dissection or aneurysm. Elevated troponins 0.077, 0.15, 0.182 EKG showed no signs of ischemia 4th troponin pending Consider cards consult Betablocker held Back pain Patient is describing pain in a new location than her chronic lower back pain. Continue home meds for chronic lumbar pain. Afib Admitted to tele Continue home medications HLD Continue home medications DVTPPx: lovenox PCP: Kirsten Code: FULL [facility] F[facility] H&P: Upper Level - Plan Date/Time: 10/17/19 2351 84yo female with pmh of HTN, COPD, HLD presented to [place] ED for elevated BP and worsening back pain. She was just discharged from the hospital on 10/14 after being admitted for elevated troponin. Denies chest pain or SOB. Given Nitro past and Metoprolol 5mg, Fentanyl 50mcg at OSH. Initial trop 0.077. EKG with no signs of acute ischemia. On arrive to [place] her BP was 216/95, repeat EKG showed no changes, repeat trop 0.150. Here she was given plavix (ASA not given due to allergy), hydralazine 10mg & 20mg. SBPs now 160's. PE: General: NAD, repeating questions but oriented to person and place. CV: RRR, systolic murmur. Pulm: CTA bilaterally Abdomen: Nontender Extremities: No edema A/P: HTN emergency, resolved - BP 221/96-> 160/79. Trops 0.077-> 0.015. EKG with no signs of ischemia. s/p Plavix. Currently has nitro paste on. Will continue Hydralazine PRN. Resume home meds. Goal SBP 160's. Back pain appears to be chronic in nature and confined to lower back, she has had recent CT of abdomen/pelvis with no signs of aortic dissection or aneurysm. Keep NPO. Consider cards consult in AM. I, Jeniffer Stafford, have evaluated this patient and agree with findings/plan as outlined by graduate internship resident. Pertinent changes/additions are listed here. Addendum - Attending - Attending Attestation Date/Time: 10/18/19 4633 I personally evaluated the patient and discussed the management with Dr. Calvin and team. I agree with the History, Examination, Assessment and Plan documented above with any addition or exceptions noted below. This morning the patient denies any complaints and refuses exam. We will discuss with daughters about plan of care.
[2019-10-18] MEDS ORDERED: Clopidogrel Bisulfate 75 MG TAB ONE (00:32)
[2019-10-18] MEDS ORDERED: Ondansetron PF 4 MG/2 ML Vial IVP PRN (02:00)
[2019-10-18] MEDS ORDERED: Acetaminophen 325 MG TAB PO PRN (02:00)
[2019-10-18] MEDS ORDERED: Ondansetron ODT 4 MG TAB PO PRN (02:00)
[2019-10-18 02:19] LABS: Troponin I 0.182 ng/mL (< 0.028)
[2019-10-18] MEDS: Acetaminophen 325 MG TAB PO PRN ×3 (05:49→21:11)
[2019-10-18] MEDS ORDERED: Nitroglycerin 2% Ointment 1 INCH/1 GM Packet TOP SCH (06:00)
--- NOTE | 2019-10-18 06:53 | PDOC.FM ---
- Subjective Subjective: Refused tele monitoring overnight. This AM, denies any chest pain or SOB. Ambulating around room comfortably. Patient stating that she would like to go home. - Objective Vital Signs & Weight: Vital Signs (12 hours) Temp Pulse Resp BP BP Pulse Ox 10/18/19 04:05 98.4 F 98 18 137/81 98 10/18/19 00:54 98.5 F 102 H 18 178/70 H 98 Weight Weight 58.105 kg Phys Exam - Physical Examination Constitutional: NAD patient refused cardiac examination patient refused respiratory examination patient refused abdominal examination LE do not appear swollen Neurological: moves all 4 limbs normal gait Deviation from normal: oriented to self only Skin: no rash Dx/Plan - Plan Plan: 84 yo F with a history of HTN, Afib, HLD, and chronic back pain complaining of back pain radiating to her back Cognitive impairment Patient demented, refusing evaluation or monitoring. - will call family for further history/reason for re-admission and to discuss goals of care today HTN emergency, resolved SBPs 240 --> 160s Currently has on nitro paste Continue hydralazine prn Restart home medications Given description of abdominal pain radiating to back, we ordered a CTA chest which revealed no evidence of aortic dissection or aneurysm. Elevated troponins 0.077, 0.15, 0.182, 0.16 EKG showed no signs of ischemia Consider cards consult if family wants to pursue aggressive care Betablocker held Back pain Patient is describing pain in a new location than her chronic lower back pain. Continue home meds for chronic lumbar pain. Afib Admitted to tele Continue home medications HLD Continue home medications DVTPPx: lovenox PCP: Kirsten Code: FULL Dispo: [facility] Addendum - Attending - Attending Attestation Date/Time: 10/18/19 7511 see my H&P
[2019-10-18] MEDS: predniSONE 5 MG TAB PO SCH ×2 (08:34→15:34)
[2019-10-18] MEDS: Lisinopril 20 MG TAB PO SCH ×2 (08:34→10:23)
--- NOTE | 2019-10-18 08:41 | CT ---
PRELIMINARY REPORT/[facility]/EMERGENCY AFTER HOURS PROCEDURE EXAM: CT Chest with Intravenous Contrast. CT Abdomen and Pelvis with Intravenous Contrast CLINICAL HISTORY: ABD PAIN WITH RADIATION TO BACK. TECHNIQUE: Axial computed tomography images of the chest, abdomen and pelvis with intravenous contrast. Coronal and sagittal reformatted images are provided. CONTRAST: With; ISOVUE 370,100mL COMPARISON: CT\SR - CT AORTIC DISSECTION PROTOCOL - 06/03/2016 02:58 PM CDT FINDINGS: CHEST: LUNGS: No pulmonary mass. No focal airspace consolidation. PLEURAL SPACES: No pleural effusion. No pneumothorax. HEART AND MEDIASTINUM: Mild cardiomegaly. No significant pericardial effusion. LYMPH NODES: No lymphadenopathy. ABDOMEN AND PELVIS: LIVER: Subcentimeter low-density lesions at the inferior and posterior right hepatic lobe which are unchange d from prior in 2017 and likely represent cysts. GALLBLADDER AND BILE DUCTS: Unremarkable. No calcified stone. No ductal dilation. PANCREAS: Unremarkable. SPLEEN: Unremarkable. ADRENAL GLANDS: Unremarkable. KIDNEYS, URETERS, AND BLADDER: 4.3 cm partially exophytic cyst at the upper pole of the left kidney 1 cm and 1.2 cm cyst at the uppe r pole the right kidney. No renal stones. No hydronephrosis. STOMACH AND BOWEL: No obstruction. No wall thickening. No CT evidence of colitis or acute diverticulitis. APPENDIX: No CT evidence for appendicitis. PERITONEUM: No free fluid. No free air. LYMPH NODES: No lymphadenopathy. REPRODUCTIVE: Unremarkable as visualized. VASCULATURE: No aortic aneurysm. Scattered atherosclerotic calcifications. BONES AND SOFT TISSUES: Chronic anterior wedge compression fracture of L1. No acute fractures or worrisome osseous lesions. MISCELLANEOUS: Multiple small thyroid nodules. IMPRESSION: 1. Aortic atherosclerosis without CT findings for acute aortic syndrome. 2. Multiple chronic findings with no significant interval change from prior exam. ELECTRONICALLY SIGNED BY: Hima Thapa M.D. Oct 18, 2019 2:24:14 AM CDT This report is intended for review by the ordering physician only, in accordance of law. If you recei ve this report in error, please call [facility] at [phone]. FINAL REPORT CT ANGIOGRAM CHEST WITH 3D RENDERING CT ANGIOGRAM ABDOMEN WITH 3D RENDERING: EMERGENCY AFTER HOURS EXAM TIME: 1:46 AM. DATE: 10/18/2019. No evidence for aortic aneurysm or dissection. Bilateral renal cysts. Low-density focus within the spleen. Stable exam from prior 06/03/2016. This report agrees with the preliminary report. POS: OFF
[2019-10-18] MEDS ORDERED: Iopamidol-370 76% 500 ML 1 ML ONE (13:31)
[2019-10-18] MEDS: Metoprolol Tartrate 25 MG TAB PO SCH (15:34)
--- NOTE | 2019-10-18 16:44 | CON ---
DATE OF CONSULTATION: 10/18/2019 REASON FOR CONSULTATION: Indeterminate troponins. PRIMARY DESIGN PRINTER BALLOON: Francisco Walton MD HISTORY OF PRESENT ILLNESS: Ms. Mcdaniel is a very pleasant 84-year-old female, who comes to the hospital for back pain. She has this chronic mid thoracic back pain. She decided to come in this time around as she was having a lot more pain than normal. During her admission, she was evaluated with a blood work that included troponin and these were in the indeterminate range, so Cardiology was consulted for further evaluation and care. On my evaluation, Ms. Mcdaniel denies any chest pain, tightness, pressure. No shortness of breath. Her only complaint is the mid back pain, which is chronic for her. She tells me that whatever medicine we have given her has made her feel a lot better and is having less pain. PAST MEDICAL HISTORY: 1. Hypertension. 2. Hyperlipidemia. 3. Paroxysmal atrial fibrillation. 4. Chronic back pain. 5. Mild coronary artery disease on heart catheterization [place] [address] Lynn. 6. GERD. 7. Early dementia. PAST SURGICAL HISTORY: 1. Tubal ligation. 2. Cataract surgery in 2016. OUTPATIENT MEDICATIONS: 1. Lovastatin 40 mg a day. 2. Methotrexate 4 tablets p.o. 3. Metoprolol tartrate 25 mg b.i.d. 4. Pantoprazole 40 mg a day. 5. Lisinopril 40 mg a day. 6. Prednisone 5 mg a day. 7. Acetaminophen regular strength p.r.n. 8. Methocarbamol p.r.n. SOCIAL HISTORY: No alcohol, tobacco, or drugs. FAMILY HISTORY: Noncontributory. REVIEW OF SYSTEMS: A 12-point review of systems was done and was found to be negative other than stated in the history of present illness. PHYSICAL EXAMINATION: VITAL SIGNS: Temperature 98.1, pulse 86, respiratory rate 15, saturating 99% on room air, and blood pressure anywhere from 182/80 to 218/91. GENERAL: Awake, alert, oriented x3, in no distress on my evaluation. HEENT: Normocephalic and atraumatic. NECK: Supple. LUNGS: Clear. CARDIOVASCULAR: S1 and S2. No S3 or S4. No murmurs or rubs. ABDOMEN: Soft. Positive bowel sounds. EXTREMITIES: No edema. SKIN: Warm and dry. LABORATORY DATA: Laboratory work was reviewed. White count of 11, hemoglobin of 12, hematocrit of 42, and platelet count of 217. Chemistry was unremarkable except for a carbon dioxide of 22, glucose was 111. Troponin was 0.07, 0.15, 0.18, 0.16. UA was unremarkable. Serology, COVID PCR was not detected back on the 16th of this month [address] per dissection protocol was significant for no dissection. No aortic aneurysm. There are scattered atherosclerotic calcifications on the aorta without an acute aortic syndrome. Chronic wedge compression fracture of L1. Small thyroid nodules. There is an exophytic cyst measuring 4.3 cm on the upper pole of the left kidney and a 1.2 cm cyst of the upper pole of the right kidney. ASSESSMENT AND PLAN: 1. Chronic back pain. 2. Chronic wedge compression fracture at L1. 3. Indeterminate troponin. 4. Hypertensive urgency. PLAN: 1. We would definitely just try to control her blood pressure. She needs to be restarted on her home medications for blood pressure control and try to get her pain medication as well. 2. No indication for heart catheterization or stress test at this point, given her absence of symptoms. 3. We will get an echocardiogram to make sure that her LV function is unchanged from a year ago when it was last time it was done. 4. Most important thing is blood pressure control at this time as well as pain control. Thank you for letting us participate in the care of your patient. We will follow. Job ID: [id number]
[2019-10-18] MEDS ORDERED: Atorvastatin Calcium 10 MG TAB PO SCH (21:00)
[2019-10-18] MEDS: Methocarbamol 500 MG TAB PO SCH (21:10)
--- NOTE | 2019-10-19 06:52 | PDOC.FM ---
- Subjective Subjective: No acute events overnight. Refused tele monitoring. Complaining of low back pain this AM. Denies chest pain, SOB, nausea, vomiting this AM. - Objective Vital Signs & Weight: Vital Signs (12 hours) Temp Pulse Resp BP BP Pulse Ox 10/18/19 23:25 83 18 147/67 H 10/18/19 21:10 197/87 H 10/18/19 19:40 97.8 F 88 18 186/81 H 99 Weight Weight 58.105 kg I&O: 10/17/19 10/18/19 10/19/19 06:59 06:59 06:59 Intake Total 740 Output Total 900 Balance -160 Phys Exam - Physical Examination Constitutional: NAD HEENT: moist MMs bilateral conjunctivitis Respiratory: no wheezing, no rales, no rhonchi, clear to auscultation bilateral Cardiovascular: RRR, no significant murmur Gastrointestinal: soft, non-tender, no distention, positive bowel sounds Musculoskeletal: no edema, pulses present Neurological: moves all 4 limbs Deviation from normal: paranoid affect, oriented to self only Skin: no rash Dx/Plan - Plan Plan: Hypertension with hypertensive emergency BP elevated. Likely due to patient refusal of medications, rebound hypertension from skipping doses of metoprolol. Elevation of troponin to 0.18 this admission , stable. - encourage medication compliance with patient - will discuss home regimen/compliance with daughters - consulted cardiology, recommend good BP control; no indication for stress test or cath given she has had no chest pain Back pain Suspect MSK origin. - continue home robaxin Dementia Patient is oriented only to self, which is near her baseline. Refusing many medications, and wants to go home. - discuss living will, mpoa with family Dispo: likely DC to home soon pending discussion with family Addendum - Attending - Attending Attestation Date/Time: 10/19/19 4213 I personally evaluated the patient and discussed the management with the team. I agree with the History, Examination, Assessment and Plan documented above with any addition or exceptions noted below. Has some lower back pain and is TTP over right paraspinal. Will plan on dc pending TTE.
[2019-10-19] MEDS ORDERED: Methotrexate Sodium 2.5 MG TAB PO SCH (09:00)
[2019-10-19] MEDS: Metoprolol Tartrate 25 MG TAB PO SCH ×3 (09:11→15:20)
[2019-10-19] MEDS: Lisinopril 20 MG TAB PO SCH (09:11)
[2019-10-19] MEDS ORDERED: predniSONE 5 MG TAB PO SCH (09:30)
[2019-10-19] MEDS ORDERED: Lisinopril 20 MG TAB PO SCH (11:30)
[2019-10-19] MEDS: Methocarbamol 500 MG TAB PO SCH (11:46)
[2019-10-19] MEDS ORDERED: hydrALAZINE 20 MG/ML VIAL SLOW IVP SCH (13:30)
[2019-10-19 13:35] VITALS: TEMP 98.6
--- NOTE | 2019-10-19 13:40 | PRG ---
DATE OF SERVICE: 10/19/2019 SUBJECTIVE: Ms. Mcdaniel continues to complain of back pain. It is positional. No chest pain, pressure, shortness of breath, or associated symptoms. Her troponin has been slightly elevated and in the indeterminate range. Her blood pressure has been markedly elevated. There has been some compliance issues with refusing to take medications. The patient also has underlying dementia. OBJECTIVE: VITAL SIGNS: Blood pressure 208/84, pulse 86, respirations 20. LUNGS: Clear to auscultation. HEART: Regular rate and rhythm. ABDOMEN: Soft, nontender, nondistended. EXTREMITIES: No edema. IMPRESSION: 1. Back pain. 2. Hypertension. 3. Elevated troponin. RECOMMENDATIONS: Ms. Mcdaniel has increased troponin secondary to demand ischemia. At this point, we will continue current medical therapy. Her CK and troponin have been drawn and have been stable. Unfortunately, she has had difficulty with taking her blood pressure medication. Creatinine is within normal limits at 1.06. We would recommend continuing lisinopril. We would add Norvasc 5 mg one p.o. q.a.m. Unfortunately, if she refuses to take medications, this will certainly be difficult to treat. Otherwise, I have no further recommendations. Job ID: [id number]
[2019-10-19 14:59] VITALS: BP 133/67
[2019-10-19] MEDS: Gentamicin Ophth Ointment 0.3% 3.5 gm Tube EA EYE SCH ×2 (17:55→18:22)
--- NOTE | 2019-10-22 13:49 | DIS ---
DATE OF ADMISSION: 10/18/2019 DATE OF DISCHARGE: 10/19/2019 ADMITTING ATTENDING: Dr. Chilel. DISCHARGING ATTENDING: Dr. Chilel. RESIDENT: Alba Clemens DO CONSULTS: Cardiology. PROCEDURES: Echocardiogram. PRIMARY DIAGNOSIS: Hypertensive emergency. SECONDARY DIAGNOSES: Dementia and chronic back pain. DISCHARGE MEDICATIONS: 1. Lovastatin 40 mg p.o. q.a.m. 2. Methotrexate 4 tablets p.o. as directed. 3. Metoprolol 25 mg p.o. b.i.d. 4. Pantoprazole 40 mg p.o. daily. 5. Lisinopril 40 mg p.o. daily. 6. Prednisone 5 mg p.o. q.a.m. with meals. 7. Tylenol 650 mg p.o. q.6 hours p.r.n. for pain. 8. Methocarbamol 500 mg p.o. at bedtime. DISCONTINUED MEDICATIONS: None. HOSPITAL COURSE: An 84-year-old female with past medical history of hypertension, atrial fibrillation, and hyperlipidemia and chronic back pain and dementia, was transferred from [place] ED for chief complaint of back pain and hypertension. She is found to have hypertensive emergency with systolic blood pressure greater than 200 and elevated troponin. She did not have any chest pain or shortness of breath. She was recently admitted for similar symptoms, worked up and sent home with Yesenia for her musculoskeletal back pain. Upon admission, her beta-gus was held pending possible stress test the next morning. The patient refused to our tele monitoring overnight and due to dementia, we did not think she would tolerate a stress test. She had several elevated blood pressures due to refusing to take medication. Discussed this with family. Consulted with Cardiology, who thought her troponins were due to her hypertension. Echo was performed revealing a grade 1 diastolic dysfunction, but was otherwise unremarkable. I discussed these results with the family as well as the importance of medication compliance and return precautions. DISPOSITION: Stable. DISCHARGE INSTRUCTIONS: 1. Location: Home. 2. Diet: Heart healthy. 3. Activity: As tolerated. 4. Followup: Follow up with the PCP within 1 week. Job ID: [id number]
--- NOTE | 2019-10-27 14:33 | EKG ---
Test Reason : Blood Pressure : / mmHG Vent. Rate : 091 BPM Atrial Rate : 091 BPM P-R Int : 146 ms QRS Dur : 074 ms QT Int : 386 ms P-R-T Axes : 040 -11 024 degrees QTc Int : 474 ms Sinus rhythm with Premature atrial complexes Minimal voltage criteria for LVH, may be normal variant Nonspecific ST abnormality Abnormal ECG Confirmed by ONEIL BATEMAN, AIMEE Kennedy ([id number]), purchase request editor PETERSON LEA ([id number]) on 10/27/2019 2:32:31 PM Referred By: Confirmed By:AIMEE RIGGS MD
== END 2019-10-19 17:04 | disposition home or self-care (01) ==
LOC: ERS 21:49 → 2SW 10-18 01:05
PROVIDERS: ADMIT Emergency Medicine; ATTEND Emergency Medicine
DX: I16.1 Hypertensive emergency (principal); I48.0 Paroxysmal atrial fibrillation; I25.10 Atherosclerotic heart disease of native coronary artery without angina pectoris; I24.8 Other forms of acute ischemic heart disease; S32.010A Wedge compression fracture of first lumbar vertebra, initial encounter for closed fracture; E78.5 Hyperlipidemia, unspecified; F03.90 Unspecified dementia, unspecified severity, without behavioral disturbance, psychotic disturbance, mood disturbance, and anxiety; K21.9 Gastro-esophageal reflux disease without esophagitis; G89.29 Other chronic pain; M54.9 Dorsalgia, unspecified; Z79.899 Other long term (current) drug therapy; Z88.4 Allergy status to anesthetic agent; Z88.5 Allergy status to narcotic agent; Z88.6 Allergy status to analgesic agent
CPT/HCPCS: 36415; 36600; 71275; 72191; 74175; 84484; 93005; 93306; 94760; 96374; G0378; J0360; J7512; Q9967

== ENCOUNTER 2020-02-27 21:03 | Emergency (ER) | payer MEDICARE, MEDICAID ==
--- NOTE | 2020-02-27 22:11 | RAD ---
PELVIC RADIOGRAPH: 02/27/20 PROVIDED CLINICAL HISTORY: Fall. FINDINGS: There is no evidence for fracture or other acute osseous abnormality. If there is persistent clinical concern, conservative management and follow-up imaging are advised. IMPRESSION: As above. POS: WALTER
[2020-02-27] MEDS ORDERED: HYDROcodone/Acetaminophen 10/325 mg Tablet ONE (22:39)
--- NOTE | 2020-02-28 06:45 | CT ---
CT CERVICAL SPINE: DATE: 02/27/2020. PROVIDED CLINICAL HISTORY: Head injury. FINDINGS: There is no evidence for a fracture or traumatic subluxation. No prevertebral soft tissue swelling a pparent. The visualized lung apices appear clear. IMPRESSION: No evidence for fracture or traumatic subluxation. POS: WALTER
--- NOTE | 2020-02-28 07:01 | CT ---
CT BRAIN: DATE: 02/27/2020. PROVIDED CLINICAL HISTORY: Head injury. FINDINGS: Comparison is made with the study dated 10/28/2018. The ventricular system is normal in size and morp hology. There is no evidence for intracranial hemorrhage or mass effect. Chronic microvascular isch emic changes are again seen involving the cerebral white matter. There is left parietal scalp swelli ng without evidence for skull fracture. IMPRESSION: No evidence for intracranial hemorrhage or mass effect. POS: WALTER
== END 2020-02-27 22:31 | disposition home or self-care (01) ==
LOC: ERS 21:03
DX: S09.90XA Unspecified injury of head, initial encounter (principal); M54.2 Cervicalgia; R10.2 Pelvic and perineal pain; I10 Essential (primary) hypertension; E78.00 Pure hypercholesterolemia, unspecified; J44.9 Chronic obstructive pulmonary disease, unspecified; K21.9 Gastro-esophageal reflux disease without esophagitis; Z87.891 Personal history of nicotine dependence; Z79.899 Other long term (current) drug therapy; W01.0XXA Fall on same level from slipping, tripping and stumbling without subsequent striking against object, initial encounter
CPT/HCPCS: 70450; 72125; 72170

== ENCOUNTER 2020-11-15 09:25 | Inpatient (IN) | payer MEDICARE, MEDICAID ==
[2020-11-15 10:22] LABS: Hemoglobin 12.2 g/dL (12.0-16.0); Mean Corpuscular HGB CONC 32.8 g/dL (32.0-36.0); Mean Corpuscular Volume 88.3 fL (78.0-98.0); Platelet Count 157 thou/uL (130-400); RBC Distribution Width 15.6 % (11.5-14.5); Red Blood Cell (RBC) Count 4.22 mill/uL (4.20-5.40); White Blood Cell (WBC) Count 14.2 thou/uL (4.8-10.8)
[2020-11-15 10:31] LABS: ALT (SGPT) 11 U/L (8-55); AST (SGOT) 16 U/L (5-34); Albumin 3.7 g/dL (3.4-4.8); Alkaline Phosphatase 59 U/L (40-110); Anion Gap 12 mmol/L (10-20); BUN (Urea Nitrogen) 10 mg/dL (9.8-20.1); Bilirubin, Total 0.9 mg/dL (0.2-1.2); Calc. Creatinine Clearance 0 mL/min (70-130); Calcium 8.4 mg/dL (7.8-10.44); Carbon Dioxide 23 mmol/L (23-31); Chloride 110 mmol/L (98-107); Globulin 2.3 g/dL (2.4-3.5); Glucose 79 mg/dL (83-110); Potassium 3.2 mmol/L (3.5-5.1); Sodium 142 mmol/L (136-145)
[2020-11-15 10:59] LABS: Anisocytosis SLIGHT = 6-15 cells (100X) (0-5/hpf); Band 4 % (5-11); MDiff Complete? YES; Monocytes 2 % (0-10); Neutrophil 94 % (42-75); Platelet Morphology Comment Appears Adequate; Vacuoles SLIGHT
[2020-11-15 11:22] LABS: Clarity Clear (Clear); Specific Gravity, Urine 1.015 (1.002-1.036)
[2020-11-15 11:23] LABS: Bilirubin Negative (Negative); Blood, Urine Trace (Negative); Glucose, Urine (Dipstick) Negative (Negative); Ketone, Urine Negative (Negative); Leukocyte Moderate Leu/uL (Negative); Nitrite Negative (Negative); Protein, Urine (Dipstick) Negative (Neg-Trace); Urobilinogen 0.2 mg/dL (Less than 2)
[2020-11-15 11:32] LABS: RBC/HPF 0-3 HPF (0-3)
[2020-11-15 11:33] LABS: Bacteria/HPF 2+ HPF (None Seen); Squamous Epithelial 0-3 HPF (0-3)
[2020-11-15 12:22] LABS: SARS-CoV-2 NAA Rapid Test Not Detected (NotDetected)
[2020-11-15 12:56] LABS: Lactic Acid 3.3 mmol/L (0.5-2.2)
[2020-11-15] MEDS ORDERED: cefTRIAXone\\ROCEPHIN 1 GM VIAL ONE (13:29)
[2020-11-15] MEDS ORDERED: Azithromycin 500 MG VIAL ONE (14:44)
[2020-11-15 15:10] LABS: CK (CPK) 20 U/L (29-168)
[2020-11-15] MEDS ORDERED: Sodium Chloride 0.9% 1,000 ML IV SCH (17:30)
[2020-11-15 17:48] VITALS: BMI 21.1
[2020-11-15] MEDS ORDERED: Docusate 100 MG CAP PO PRN (18:16)
[2020-11-15] MEDS ORDERED: Electrolyte Replacement Protocol 1 EACH FS SCH (18:30)
[2020-11-15] MEDS ORDERED: Potassium Chloride 20 MEQ TAB PO SCH (18:30)
[2020-11-15] MEDS ORDERED: Ondansetron ODT 4 MG TAB SL PRN (19:00)
[2020-11-15] MEDS ORDERED: Ondansetron PF 4 MG/2 ML Vial IVP PRN (19:00)
[2020-11-15] MEDS: Acetaminophen 325 MG TAB PO PRN (19:18)
[2020-11-15] MEDS: Sodium Chloride 0.9% 1,000 ML IV SCH (19:18)
[2020-11-15] MEDS: cefTRIAXone\\ROCEPHIN 1 GM in Sodium Chloride 0.9% 100 ML IVPB SCH (20:00)
[2020-11-15] MEDS: Azithromycin 500 MG in Sodium Chloride 0.9% 250 ML 250 ML IVPB SCH (20:14)
[2020-11-16] MEDS: Acetaminophen 325 MG TAB PO PRN (02:31)
[2020-11-16] MEDS: Melatonin 3 MG TAB PO PRN ×2 (02:31→20:41)
[2020-11-16] MEDS: Sodium Chloride 0.9% 1,000 ML IV SCH (05:58)
[2020-11-16 07:45] LABS: #Eosinphils 0.1 thou/uL (0.0-0.7); #Lymphocytes 0.7 thou/uL (1.20-3.40); #Monocytes 0.7 thou/uL (0.11-0.59); #Neutrophils 14.6 thou/uL (1.40-6.50); %Basophils 0.1 % (0.0-1.0); %Eosinophils 0.7 % (0.0-10.0); %Lymphocytes 4.3 % (21.0-51.0); %Monocytes 4.2 % (0.0-10.0); %Neutrophils 90.7 % (42.0-75.0); Hemoglobin 10.5 g/dL (12.0-16.0); Mean Corpuscular HGB CONC 31.8 g/dL (32.0-36.0); Mean Corpuscular Hemoglobin 28.1 pg (27.0-31.0); Mean Corpuscular Volume 88.4 fL (78.0-98.0); Mean Platelet Volume 9.7 fL (7.4-10.4); Platelet Count 166 thou/uL (130-400); RBC Distribution Width 15.6 % (11.5-14.5); Red Blood Cell (RBC) Count 3.73 mill/uL (4.20-5.40); White Blood Cell (WBC) Count 16.1 thou/uL (4.8-10.8)
[2020-11-16 08:03] LABS: Anion Gap 12 mmol/L (10-20); BUN (Urea Nitrogen) 8 mg/dL (9.8-20.1); Calc. Creatinine Clearance 50 mL/min (70-130); Calcium 7.2 mg/dL (7.8-10.44); Carbon Dioxide 18 mmol/L (23-31); Chloride 112 mmol/L (98-107); Glucose 82 mg/dL (83-110); Potassium 3.9 mmol/L (3.5-5.1); Sodium 138 mmol/L (136-145)
[2020-11-16] MEDS: Polyethylene Glycol 3350 17 GM Packet PO SCH (09:10)
[2020-11-16] MEDS: Enoxaparin Sodium 40 MG/0.4 ML SYRINGE SC SCH (09:10)
[2020-11-16] MEDS: cefTRIAXone\\ROCEPHIN 1 GM in Sodium Chloride 0.9% 100 ML IVPB SCH (20:33)
[2020-11-16] MEDS: Azithromycin 500 MG in Sodium Chloride 0.9% 250 ML 250 ML IVPB SCH (20:33)
[2020-11-16] MEDS: Senokot S 8.6-50 MG TAB PO SCH (20:35)
[2020-11-16] MEDS ORDERED: Labetalol HCl 100 MG/20 ML VIAL SLOW IVP PRN (23:44)
[2020-11-17] MEDS: Sodium Chloride 0.9% 1,000 ML IV SCH (03:08)
[2020-11-17] MEDS: Polyethylene Glycol 3350 17 GM Packet PO SCH (08:13)
[2020-11-17] MEDS: Enoxaparin Sodium 40 MG/0.4 ML SYRINGE SC SCH (08:13)
[2020-11-17] MEDS: Senokot S 8.6-50 MG TAB PO SCH ×2 (08:13→20:36)
[2020-11-17] MEDS ORDERED: predniSONE 5 MG TAB PO SCH (10:15)
[2020-11-17] MEDS ORDERED: Lisinopril 5 MG TAB PO SCH (10:15)
[2020-11-17 10:39] LABS: #Eosinphils 0.2 thou/uL (0.0-0.7); #Lymphocytes 0.9 thou/uL (1.20-3.40); #Monocytes 1.1 thou/uL (0.11-0.59); #Neutrophils 12.7 thou/uL (1.40-6.50); %Eosinophils 1.5 % (0.0-10.0); %Lymphocytes 5.8 % (21.0-51.0); %Monocytes 7.4 % (0.0-10.0); %Neutrophils 85.2 % (42.0-75.0); Hemoglobin 10.7 g/dL (12.0-16.0); Mean Corpuscular Hemoglobin 28.2 pg (27.0-31.0); Mean Platelet Volume 9.8 fL (7.4-10.4); Platelet Count 158 thou/uL (130-400); RBC Distribution Width 15.1 % (11.5-14.5); White Blood Cell (WBC) Count 14.9 thou/uL (4.8-10.8)
[2020-11-17 11:03] LABS: Anion Gap 15 mmol/L (10-20); BUN (Urea Nitrogen) 6 mg/dL (9.8-20.1); CRP (Inflammatory) 13.89 mg/dL (= or < 0.5); Calc. Creatinine Clearance 61 mL/min (70-130); Calcium 7.8 mg/dL (7.8-10.44); Carbon Dioxide 13 mmol/L (23-31); Chloride 113 mmol/L (98-107); Glucose 95 mg/dL (83-110); Potassium 4.3 mmol/L (3.5-5.1); Sodium 137 mmol/L (136-145)
[2020-11-17] MEDS: cefTRIAXone\\ROCEPHIN 1 GM in Sodium Chloride 0.9% 100 ML IVPB SCH (20:35)
[2020-11-17] MEDS: Atorvastatin Calcium 10 MG TAB PO SCH (20:36)
[2020-11-17] MEDS: Metoprolol Tartrate 25 MG TAB PO SCH (20:36)
[2020-11-17] MEDS: Azithromycin 500 MG in Sodium Chloride 0.9% 250 ML 250 ML IVPB SCH (22:02)
[2020-11-18] MEDS: Senokot S 8.6-50 MG TAB PO SCH ×2 (08:03→20:39)
[2020-11-18] MEDS: predniSONE 5 MG TAB PO SCH (08:03)
[2020-11-18] MEDS: Polyethylene Glycol 3350 17 GM Packet PO SCH (08:04)
[2020-11-18] MEDS: Metoprolol Tartrate 25 MG TAB PO SCH ×2 (08:04→20:40)
[2020-11-18] MEDS: Acetaminophen 325 MG TAB PO PRN (08:04)
[2020-11-18] MEDS: Enoxaparin Sodium 40 MG/0.4 ML SYRINGE SC SCH (08:04)
[2020-11-18] MEDS ORDERED: Lisinopril 5 MG TAB PO SCH ×2 (09:00→13:45)
[2020-11-18 14:44] LABS: #Lymphocytes 0.6 thou/uL (1.20-3.40); #Monocytes 0.5 thou/uL (0.11-0.59); #Neutrophils 7.8 thou/uL (1.40-6.50); %Basophils 0.1 % (0.0-1.0); %Eosinophils 0.5 % (0.0-10.0); %Lymphocytes 6.3 % (21.0-51.0); %Monocytes 5.1 % (0.0-10.0); %Neutrophils 88.1 % (42.0-75.0); Hemoglobin 11.8 g/dL (12.0-16.0); Mean Corpuscular HGB CONC 31.5 g/dL (32.0-36.0); Mean Corpuscular Hemoglobin 27.9 pg (27.0-31.0); Mean Corpuscular Volume 88.6 fL (78.0-98.0); Platelet Count 188 thou/uL (130-400); RBC Distribution Width 15.3 % (11.5-14.5); Red Blood Cell (RBC) Count 4.24 mill/uL (4.20-5.40); White Blood Cell (WBC) Count 8.9 thou/uL (4.8-10.8)
[2020-11-18 15:07] LABS: Anion Gap 15 mmol/L (10-20); BUN (Urea Nitrogen) 11 mg/dL (9.8-20.1); Calc. Creatinine Clearance 49 mL/min (70-130); Calcium 8.8 mg/dL (7.8-10.44); Carbon Dioxide 14 mmol/L (23-31); Chloride 113 mmol/L (98-107); Glucose 130 mg/dL (83-110); Potassium 4.4 mmol/L (3.5-5.1); Sodium 138 mmol/L (136-145)
[2020-11-18] MEDS ORDERED: Sodium Bicarbonate Tab 325 MG TAB PO SCH (15:30)
[2020-11-18] MEDS: cefTRIAXone\\ROCEPHIN 1 GM in Sodium Chloride 0.9% 100 ML IVPB SCH (17:36)
[2020-11-18] MEDS: Sodium Bicarbonate Tab 325 MG TAB PO SCH (20:39)
[2020-11-18] MEDS: Atorvastatin Calcium 10 MG TAB PO SCH (20:40)
[2020-11-19 07:42] VITALS: TEMP 98
[2020-11-19] MEDS: Sodium Bicarbonate Tab 325 MG TAB PO SCH (07:43)
[2020-11-19] MEDS: Metoprolol Tartrate 25 MG TAB PO SCH (07:43)
[2020-11-19] MEDS: Senokot S 8.6-50 MG TAB PO SCH (07:43)
[2020-11-19] MEDS: Enoxaparin Sodium 40 MG/0.4 ML SYRINGE SC SCH (07:44)
[2020-11-19] MEDS: predniSONE 5 MG TAB PO SCH (07:44)
[2020-11-19] MEDS: Polyethylene Glycol 3350 17 GM Packet PO SCH (07:44)
[2020-11-19] MEDS ORDERED: Artificial Tear Sol 15 ML BOT EA EYE PRN (07:58)
[2020-11-19] MEDS ORDERED: Calcium Carbonate 500 MG ChewTAB PO PRN (07:58)
[2020-11-19] MEDS ORDERED: Sodium Chloride 0.65% Nasal 44 ML BOT EA NARE PRN (07:58)
[2020-11-19] MEDS ORDERED: GUAIFENESIN SF SOLN 200 MG/10 ML UDCUP PO PRN (07:58)
[2020-11-19] MEDS ORDERED: Cepastat Lozenges 1 LOZ PO PRN (07:58)
[2020-11-19] MEDS ORDERED: Loratadine 10 MG TAB PO PRN (07:58)
[2020-11-19] MEDS ORDERED: hydrALAZINE 20 MG/ML VIAL SLOW IVP PRN (07:58)
[2020-11-19] MEDS ORDERED: Bisacodyl 5 MG TAB PO PRN (07:58)
[2020-11-19] MEDS ORDERED: Benzonatate 100 MG CAP PO PRN (07:58)
[2020-11-19] MEDS ORDERED: Metoclopramide HCl 10 MG/2 ML VIAL IVP PRN (07:58)
[2020-11-19] MEDS ORDERED: Loperamide HCl 2 MG CAP PO PRN (07:58)
[2020-11-19] MEDS ORDERED: Hydrocerin (Eucerin) Cream 120 gm Jar TOP PRN (07:58)
[2020-11-19] MEDS ORDERED: Azithromycin 250 MG TAB PO SCH (09:00)
[2020-11-19] MEDS ORDERED: Lisinopril 20 MG TAB PO SCH (09:00)
[2020-11-19] MEDS ORDERED: Lisinopril 5 MG TAB PO SCH (09:00)
[2020-11-19 12:05] LABS: Anion Gap 17 mmol/L (10-20); BUN (Urea Nitrogen) 9 mg/dL (9.8-20.1); Calc. Creatinine Clearance 47 mL/min (70-130); Calcium 8.6 mg/dL (7.8-10.44); Carbon Dioxide 18 mmol/L (23-31); Chloride 111 mmol/L (98-107); Glucose 82 mg/dL (83-110); Potassium 3.9 mmol/L (3.5-5.1); Sodium 142 mmol/L (136-145)
[2020-11-19 16:15] VITALS: BP 176/78
== END 2020-11-19 17:00 | disposition home or self-care (01) | DRG 871 ==
LOC: ERS 09:25 → T4-B 15:18
PROVIDERS: ADMIT Internal Medicine; ATTEND Internal Medicine
DX: A41.9 Sepsis, unspecified organism (principal); J18.9 Pneumonia, unspecified organism; N30.01 Acute cystitis with hematuria; J44.0 Chronic obstructive pulmonary disease with (acute) lower respiratory infection; E87.6 Hypokalemia; E78.5 Hyperlipidemia, unspecified; Z20.822 Contact with and (suspected) exposure to COVID-19; K56.41 Fecal impaction; E87.8 Other disorders of electrolyte and fluid balance, not elsewhere classified; E87.70 Fluid overload, unspecified; K21.9 Gastro-esophageal reflux disease without esophagitis; I10 Essential (primary) hypertension; E78.00 Pure hypercholesterolemia, unspecified; M19.90 Unspecified osteoarthritis, unspecified site; F03.90 Unspecified dementia, unspecified severity, without behavioral disturbance, psychotic disturbance, mood disturbance, and anxiety; I16.0 Hypertensive urgency; Z87.891 Personal history of nicotine dependence; Z88.5 Allergy status to narcotic agent; Z88.8 Allergy status to other drugs, medicaments and biological substances; Z79.52 Long term (current) use of systemic steroids; Z79.899 Other long term (current) drug therapy
CPT/HCPCS: 0240U; 36415; 71045; 71046; 74177; 80048; 80053; 81003; 81015; 82550; 83605; 85025; 86140; 87040; 87086; 93306; J0456; J0696; J1650; J3490; J7050; J7512

== ENCOUNTER 2021-07-03 10:40 | Outpatient (CLI) | payer MEDICARE, OTHER | END 2021-07-03 10:41 | disposition home or self-care (01) | LOC: SCSMRI 10:40 | PROVIDERS: ATTEND Family Medicine | DX: M47.26 Other spondylosis with radiculopathy, lumbar region (principal); M54.42 Lumbago with sciatica, left side; M54.41 Lumbago with sciatica, right side; G89.29 Other chronic pain | CPT/HCPCS: 72148 ==

== ENCOUNTER 2022-01-08 23:52 | Inpatient (IN) | payer MEDICARE, MEDICAID ==
[2022-01-09] MEDS ORDERED: Ondansetron PF 4 MG/2 ML Vial IVP PRN (01:31)
[2022-01-09] MEDS ORDERED: Ondansetron ODT 4 MG TAB PO PRN (01:31)
[2022-01-09] MEDS ORDERED: Acetaminophen 650 MG Suppository PR PRN (01:31)
[2022-01-09] MEDS ORDERED: Lisinopril 20 MG TAB PO SCH (01:45)
[2022-01-09] MEDS: Acetaminophen 325 MG TAB PO PRN ×3 (03:09→22:18)
[2022-01-09 05:27] LABS: Hemoglobin 11.8 g/dL (12.0-16.0); Mean Corpuscular HGB CONC 32.4 g/dL (32.0-36.0); Mean Corpuscular Volume 89.4 fl (78.0-98.0); Mean Platelet Volume 10.8 fL (7.4-10.4); Platelet Count 105 10x3/uL (130-400); RBC Distribution Width 15.1 % (11.5-14.5); Red Blood Cell (RBC) Count 4.07 mill/uL (4.20-5.40); White Blood Cell (WBC) Count 3.8 10x3/uL (4.8-10.8)
[2022-01-09 05:28] LABS: #Lymphocytes 0.5 thou/uL (1.20-3.40); #Monocytes 0.5 thou/uL (0.11-0.59); #Neutrophils 2.8 thou/uL (1.40-6.50); %Eosinophils 1.3 % (0.0-10.0); %Lymphocytes 13.1 % (21.0-51.0); %Monocytes 12.6 % (0.0-10.0); %Neutrophils 73.1 % (42.0-75.0)
[2022-01-09] MEDS: Oseltamivir 75 MG CAP PO SCH ×3 (05:50→22:20)
[2022-01-09 05:59] LABS: Anion Gap 15 mmol/L (10-20); BUN (Urea Nitrogen) 12 mg/dL (9.8-20.1); Calc. Creatinine Clearance 0 mL/min (70-130); Calcium 8.7 mg/dL (7.8-10.44); Carbon Dioxide 19 mmol/L (23-31); Chloride 108 mmol/L (98-107); Estimated GFR 78; Glucose 80 mg/dL (83-110); Potassium 4.2 mmol/L (3.5-5.1); Sodium 138 mmol/L (136-145)
[2022-01-09 06:29] VITALS: BMI 20.5
[2022-01-09] MEDS ORDERED: FLU VACC QS2022-23(65YR UP)/PF 240 MCG/0.7 ML SYRINGE IM ONE (07:00)
[2022-01-09] MEDS: Metoprolol Tartrate 25 MG TAB PO SCH ×2 (08:26→22:20)
[2022-01-09] MEDS ORDERED: Amlodipine 5 MG TAB PO SCH (09:00)
[2022-01-09] MEDS: cefTRIAXone\\ROCEPHIN 1 GM in Sodium Chloride 0.9% 100 ML IVPB SCH (10:50)
[2022-01-09] MEDS ORDERED: Melatonin 3 MG TAB PO PRN (17:36)
[2022-01-09] MEDS: Atorvastatin Calcium 10 MG TAB PO SCH (22:20)
[2022-01-10] MEDS: Acetaminophen 325 MG TAB PO PRN ×3 (04:40→23:18)
[2022-01-10 05:37] LABS: #Eosinphils 0.1 thou/uL (0.0-0.7); #Lymphocytes 0.4 thou/uL (1.20-3.40); #Monocytes 0.4 thou/uL (0.11-0.59); #Neutrophils 2.9 thou/uL (1.40-6.50); %Basophils 0.7 % (0.0-1.0); %Eosinophils 1.5 % (0.0-10.0); %Lymphocytes 10.3 % (21.0-51.0); %Neutrophils 76.5 % (42.0-75.0); Hemoglobin 11.6 g/dL (12.0-16.0); Mean Corpuscular HGB CONC 32.3 g/dL (32.0-36.0); Mean Corpuscular Hemoglobin 28.8 pg (27.0-31.0); Mean Corpuscular Volume 89.1 fl (78.0-98.0); Mean Platelet Volume 11.5 fL (7.4-10.4); Platelet Count 131 10x3/uL (130-400); Red Blood Cell (RBC) Count 4.03 mill/uL (4.20-5.40); White Blood Cell (WBC) Count 3.8 10x3/uL (4.8-10.8)
[2022-01-10 05:47] LABS: Anion Gap 14 mmol/L (10-20); BUN (Urea Nitrogen) 15 mg/dL (9.8-20.1); Calc. Creatinine Clearance 45 mL/min (70-130); Calcium 9.2 mg/dL (7.8-10.44); Carbon Dioxide 20 mmol/L (23-31); Chloride 103 mmol/L (98-107); Estimated GFR 74; Glucose 92 mg/dL (83-110); Potassium 3.3 mmol/L (3.5-5.1); Sodium 134 mmol/L (136-145)
[2022-01-10] MEDS ORDERED: Potassium Chloride 20 MEQ TAB PO SCH (07:45)
[2022-01-10] MEDS: cefTRIAXone\\ROCEPHIN 1 GM in Sodium Chloride 0.9% 100 ML IVPB SCH (08:28)
[2022-01-10] MEDS: Lisinopril 20 MG TAB PO SCH (08:29)
[2022-01-10] MEDS: Oseltamivir 75 MG CAP PO SCH ×2 (08:29→22:43)
[2022-01-10] MEDS: Metoprolol Tartrate 25 MG TAB PO SCH ×2 (08:29→22:43)
[2022-01-10] MEDS: Enoxaparin Sodium 40 MG/0.4 ML SYRINGE SC SCH (08:30)
[2022-01-10] MEDS ORDERED: Azithromycin 500 MG in Syringe 0 ML IVPB SCH (08:45)
[2022-01-10] MEDS: Azithromycin 500 MG in Sodium Chloride 0.9% 250 ML 250 ML IVPB SCH (10:54)
[2022-01-10] MEDS: Lactated Ringer's 1,000 ML IV SCH (18:33)
[2022-01-10] MEDS: Atorvastatin Calcium 10 MG TAB PO SCH (22:43)
[2022-01-10] MEDS ORDERED: Sterile Water 10 ML VIAL FS PRN (23:00)
[2022-01-10] MEDS ORDERED: Ziprasidone 20 MG VIAL IM SCH (23:00)
[2022-01-11] MEDS: Lactated Ringer's 1,000 ML IV SCH ×2 (05:57→15:09)
[2022-01-11 06:26] LABS: Anion Gap 14 mmol/L (10-20); BUN (Urea Nitrogen) 11 mg/dL (9.8-20.1); Calc. Creatinine Clearance 47 mL/min (70-130); Calcium 9.2 mg/dL (7.8-10.44); Carbon Dioxide 20 mmol/L (23-31); Chloride 107 mmol/L (98-107); Estimated GFR 79; Glucose 73 mg/dL (83-110); Potassium 4.2 mmol/L (3.5-5.1); Sodium 137 mmol/L (136-145)
[2022-01-11 08:03] LABS: Hemoglobin 11.6 g/dL (12.0-16.0); Mean Corpuscular HGB CONC 32.1 g/dL (32.0-36.0); Mean Corpuscular Hemoglobin 28.8 pg (27.0-31.0); Mean Corpuscular Volume 89.5 fl (78.0-98.0); Mean Platelet Volume 11.9 fL (7.4-10.4); Platelet Count 142 10x3/uL (130-400); RBC Distribution Width 15.2 % (11.5-14.5); Red Blood Cell (RBC) Count 4.03 mill/uL (4.20-5.40); White Blood Cell (WBC) Count 6.8 10x3/uL (4.8-10.8)
[2022-01-11] MEDS: Enoxaparin Sodium 40 MG/0.4 ML SYRINGE SC SCH (08:41)
[2022-01-11] MEDS: cefTRIAXone\\ROCEPHIN 1 GM in Sodium Chloride 0.9% 100 ML IVPB SCH (08:41)
[2022-01-11] MEDS: Oseltamivir 75 MG CAP PO SCH ×2 (08:42→18:42)
[2022-01-11] MEDS: Lisinopril 20 MG TAB PO SCH (08:42)
[2022-01-11] MEDS: Metoprolol Tartrate 25 MG TAB PO SCH ×2 (08:42→18:42)
[2022-01-11] MEDS ORDERED: Oseltamivir 75 MG CAP PO SCH (09:30)
[2022-01-11 09:41] LABS: Band 6 % (5-11); Eosinophils 1 % (0-10); Lymphocytes 25 % (21-51); MDiff Complete? YES; Monocytes 34 % (0-10); Neutrophil 34 % (42-75); Platelet Morphology Comment Appears Adequate; RBC Morphology Normal
[2022-01-11] MEDS: Azithromycin 500 MG in Sodium Chloride 0.9% 250 ML 250 ML IVPB SCH (09:56)
[2022-01-11] MEDS: Acetaminophen 325 MG TAB PO PRN (11:42)
[2022-01-11] MEDS: Atorvastatin Calcium 10 MG TAB PO SCH (18:42)
[2022-01-12 06:31] LABS: Band 7 % (5-11); Eosinophils 1 % (0-10); Hemoglobin 9.8 g/dL (12.0-16.0); Hypochromia SLIGHT = 6-15 cells (100X) (0-5/hpf); Lymphocytes 17 % (21-51); MDiff Complete? YES; Mean Corpuscular Hemoglobin 28.8 pg (27.0-31.0); Monocytes 7 % (0-10); Neutrophil 67 % (42-75); Platelet Count 183 10x3/uL (130-400); Platelet Morphology Comment Appears Adequate; RBC Distribution Width 15.1 % (11.5-14.5); Reactive Lymphocytes 1 % (0-10); Red Blood Cell (RBC) Count 3.42 mill/uL (4.20-5.40); White Blood Cell (WBC) Count 4.4 10x3/uL (4.8-10.8)
[2022-01-12 06:34] LABS: Anion Gap 12 mmol/L (10-20); BUN (Urea Nitrogen) 8 mg/dL (9.8-20.1); Calc. Creatinine Clearance 44 mL/min (70-130); Calcium 8.6 mg/dL (7.8-10.44); Carbon Dioxide 23 mmol/L (23-31); Chloride 105 mmol/L (98-107); Estimated GFR 73; Glucose 77 mg/dL (83-110); Potassium 3.5 mmol/L (3.5-5.1); Sodium 136 mmol/L (136-145)
[2022-01-12] MEDS: Lisinopril 20 MG TAB PO SCH (08:51)
[2022-01-12] MEDS: Oseltamivir 75 MG CAP PO SCH ×2 (08:51→16:31)
[2022-01-12] MEDS: cefTRIAXone\\ROCEPHIN 1 GM in Sodium Chloride 0.9% 100 ML IVPB SCH (08:51)
[2022-01-12] MEDS: Enoxaparin Sodium 40 MG/0.4 ML SYRINGE SC SCH (08:52)
[2022-01-12] MEDS: Metoprolol Tartrate 25 MG TAB PO SCH ×2 (08:52→20:17)
[2022-01-12] MEDS: Azithromycin 500 MG in Sodium Chloride 0.9% 250 ML 250 ML IVPB SCH (10:14)
[2022-01-12] MEDS: Acetaminophen 325 MG TAB PO PRN (16:31)
[2022-01-12] MEDS ORDERED: Azithromycin 250 MG TAB PO SCH (17:00)
[2022-01-12] MEDS: Atorvastatin Calcium 10 MG TAB PO SCH (20:17)
[2022-01-13 08:27] LABS: Hemoglobin 12.3 g/dL (12.0-16.0); Mean Corpuscular Hemoglobin 29.4 pg (27.0-31.0); Mean Corpuscular Volume 91.7 fl (78.0-98.0); Mean Platelet Volume 10.4 fL (7.4-10.4); Platelet Count 207 10x3/uL (130-400); RBC Distribution Width 15.9 % (11.5-14.5); Red Blood Cell (RBC) Count 4.19 mill/uL (4.20-5.40); White Blood Cell (WBC) Count 8.2 10x3/uL (4.8-10.8)
[2022-01-13 08:31] LABS: Anion Gap 13 mmol/L (10-20); BUN (Urea Nitrogen) 10 mg/dL (9.8-20.1); Calc. Creatinine Clearance 42 mL/min (70-130); Calcium 9.3 mg/dL (7.8-10.44); Carbon Dioxide 22 mmol/L (23-31); Chloride 105 mmol/L (98-107); Estimated GFR 69; Glucose 77 mg/dL (83-110); Potassium 3.7 mmol/L (3.5-5.1); Sodium 136 mmol/L (136-145)
[2022-01-13] MEDS: Lisinopril 20 MG TAB PO SCH (08:35)
[2022-01-13] MEDS: Metoprolol Tartrate 25 MG TAB PO SCH (08:35)
[2022-01-13] MEDS: Oseltamivir 75 MG CAP PO SCH (08:36)
[2022-01-13] MEDS: Enoxaparin Sodium 40 MG/0.4 ML SYRINGE SC SCH (08:36)
[2022-01-13] MEDS ORDERED: Azithromycin 250 MG TAB PO SCH (09:00)
[2022-01-13 11:39] VITALS: BP 114/62; TEMP 99.7
[2022-01-13 12:09] LABS: Anisocytosis SLIGHT = 6-15 cells (100X) (0-5/hpf); Band 15 % (5-11); Eosinophils 3 % (0-10); Lymphocytes 12 % (21-51); MDiff Complete? YES; Monocytes 11 % (0-10); Neutrophil 59 % (42-75); Ovalocytes SLIGHT = 2-5 cells (100X) (0-1/hpf); Platelet Morphology Comment Appears Adequate; Polychromasia SLIGHT = 2-3 cells (100X) (0-2/hpf)
[2022-01-13] MEDS ORDERED: Cefdinir 300 MG CAP PO SCH (17:00)
== END 2022-01-13 14:23 | DRG 193 ==
LOC: INTOOBSV 01-09 00:17 → NEURO 01-09 00:17 → OBSVTOIN 01-09 06:44
PROVIDERS: ADMIT Family Medicine; ATTEND Family Medicine
DX: J10.08 Influenza due to other identified influenza virus with other specified pneumonia (principal); G93.41 Metabolic encephalopathy; I50.32 Chronic diastolic (congestive) heart failure; N39.0 Urinary tract infection, site not specified; F05 Delirium due to known physiological condition; Z20.822 Contact with and (suspected) exposure to COVID-19; J15.9 Unspecified bacterial pneumonia; J44.0 Chronic obstructive pulmonary disease with (acute) lower respiratory infection; R00.1 Bradycardia, unspecified; D69.6 Thrombocytopenia, unspecified; M19.90 Unspecified osteoarthritis, unspecified site; K21.9 Gastro-esophageal reflux disease without esophagitis; E78.5 Hyperlipidemia, unspecified; F03.90 Unspecified dementia, unspecified severity, without behavioral disturbance, psychotic disturbance, mood disturbance, and anxiety; M06.9 Rheumatoid arthritis, unspecified; I11.0 Hypertensive heart disease with heart failure; I48.91 Unspecified atrial fibrillation; Z88.6 Allergy status to analgesic agent; Z88.4 Allergy status to anesthetic agent; Z88.5 Allergy status to narcotic agent; Z79.899 Other long term (current) drug therapy; Z79.52 Long term (current) use of systemic steroids; Z87.891 Personal history of nicotine dependence
CPT/HCPCS: 36415; 71045; 80048; 84145; 85025; J0456; J0696; J1650; J3490; J7050; J7120

== ENCOUNTER 2022-01-19 19:47 | Emergency (ER) | payer MEDICARE, MEDICAID ==
[2022-01-19 20:18] LABS: #Basophils 0.1 thou/uL (0.0-0.2); #Eosinphils 0.1 thou/uL (0.0-0.7); #Lymphocytes 3.2 thou/uL (1.20-3.40); #Monocytes 1.3 thou/uL (0.11-0.59); #Neutrophils 8.1 thou/uL (1.40-6.50); %Basophils 0.7 % (0.0-1.0); %Eosinophils 0.7 % (0.0-10.0); %Lymphocytes 25.1 % (21.0-51.0); %Monocytes 10.4 % (0.0-10.0); %Neutrophils 63.2 % (42.0-75.0); Hemoglobin 11.6 g/dL (12.0-16.0); Mean Corpuscular HGB CONC 32.5 g/dL (32.0-36.0); Mean Corpuscular Hemoglobin 29.1 pg (27.0-31.0); Mean Corpuscular Volume 89.7 fl (78.0-98.0); Mean Platelet Volume 8.7 fL (7.4-10.4); Platelet Count 415 10x3/uL (130-400); RBC Distribution Width 15.2 % (11.5-14.5); Red Blood Cell (RBC) Count 3.98 mill/uL (4.20-5.40); White Blood Cell (WBC) Count 12.8 10x3/uL (4.8-10.8)
[2022-01-19 20:37] LABS: ALT (SGPT) 31 U/L (8-55); AST (SGOT) 40 U/L (5-34); Albumin 3.6 g/dL (3.4-4.8); Alkaline Phosphatase 51 U/L (40-110); Anion Gap 15 mmol/L (10-20); BUN (Urea Nitrogen) 15 mg/dL (9.8-20.1); Calc. Creatinine Clearance 0 mL/min (70-130); Calcium 8.8 mg/dL (7.8-10.44); Carbon Dioxide 20 mmol/L (23-31); Chloride 107 mmol/L (98-107); Estimated GFR 55; Globulin 2.8 g/dL (2.4-3.5); Glucose 75 mg/dL (83-110); Potassium 4.2 mmol/L (3.5-5.1); Protein, Total 6.4 g/dL (5.8-8.1); Sodium 138 mmol/L (136-145)
== END 2022-01-20 00:09 ==
LOC: ERS 19:47
DX: F03.90 Unspecified dementia, unspecified severity, without behavioral disturbance, psychotic disturbance, mood disturbance, and anxiety (principal); J44.9 Chronic obstructive pulmonary disease, unspecified; E78.00 Pure hypercholesterolemia, unspecified; K21.9 Gastro-esophageal reflux disease without esophagitis; Z87.891 Personal history of nicotine dependence; Z79.899 Other long term (current) drug therapy
CPT/HCPCS: 70450; 72125; 72170; 80053; 85025; 93005

== ENCOUNTER 2022-01-27 19:23 | Emergency (ER) | payer MEDICARE, MEDICAID ==
[2022-01-27] MEDS ORDERED: Acetaminophen 500 MG TAB ONE (20:12)
== END 2022-01-27 22:28 ==
LOC: ERS 19:23
DX: S00.03XA Contusion of scalp, initial encounter (principal); I10 Essential (primary) hypertension; J44.9 Chronic obstructive pulmonary disease, unspecified; I48.91 Unspecified atrial fibrillation; Z87.891 Personal history of nicotine dependence; Z79.899 Other long term (current) drug therapy; W18.09XA Striking against other object with subsequent fall, initial encounter
CPT/HCPCS: 70450; 72125

== ENCOUNTER 2022-07-01 10:08 | Emergency (ER) | payer MEDICARE, OTHER ==
[2022-07-01] MEDS ORDERED: Acetaminophen 500 MG TAB ONE (11:20)
[2022-07-01 12:22] LABS: ALT (SGPT) 13 U/L (8-55); AST (SGOT) 21 U/L (5-34); Alkaline Phosphatase 52 U/L (40-110); Anion Gap 13 mmol/L (10-20); BUN (Urea Nitrogen) 9 mg/dL (9.8-20.1); Bilirubin, Total 0.7 mg/dL (0.2-1.2); Calc. Creatinine Clearance 0 mL/min (70-130); Calcium 9.8 mg/dL (7.8-10.44); Carbon Dioxide 23 mmol/L (23-31); Chloride 112 mmol/L (98-107); Estimated GFR 68; Globulin 2.6 g/dL (2.4-3.5); Glucose 80 mg/dL (83-110); Protein, Total 6.6 g/dL (5.8-8.1); Sodium 144 mmol/L (136-145)
[2022-07-01 13:32] LABS: #Eosinphils 0.1 thou/uL (0.0-0.7); #Lymphocytes 0.7 thou/uL (1.20-3.40); #Monocytes 0.2 thou/uL (0.11-0.59); #Neutrophils 3.8 thou/uL (1.40-6.50); %Eosinophils 1.1 % (0.0-10.0); %Lymphocytes 14.8 % (21.0-51.0); %Monocytes 3.2 % (0.0-10.0); Mean Corpuscular HGB CONC 33.4 g/dL (32.0-36.0); Mean Corpuscular Hemoglobin 31.7 pg (27.0-31.0); Mean Platelet Volume 11.7 fL (7.4-10.4); Platelet Count 119 10x3/uL (130-400); Red Blood Cell (RBC) Count 3.14 mill/uL (4.20-5.40); White Blood Cell (WBC) Count 4.7 10x3/uL (4.8-10.8)
== END 2022-07-01 14:27 | disposition home or self-care (01) ==
LOC: ERS 10:08
DX: M79.10 Myalgia, unspecified site (principal); D72.819 Decreased white blood cell count, unspecified; I10 Essential (primary) hypertension; J44.9 Chronic obstructive pulmonary disease, unspecified; E78.00 Pure hypercholesterolemia, unspecified; Z87.891 Personal history of nicotine dependence; Z79.899 Other long term (current) drug therapy
CPT/HCPCS: 36415; 74177; 80053; 85025